=== PATIENT | female | born 2000 | race Caucasian/White ===

== ENCOUNTER 2021-10-16 18:08 | Emergency (ER) | payer BC ==
--- OUTSIDE RECORDS SUMMARY | 2021-10-16 18:16 | XMS REPORT | Continuity of Care Document ---
:2000 Author Organization [facility] t Address [address] [place] [address] Care Team Providers Name Role Phone Nikko Farnsworth MD Attending Clinician Mike Reynolds Attending Clinician Unavailable Ar Attending Clinician [phone] Selam Attending Clinician Unavailable Herberth Attending Clinician Unavailable Asia Fritz Attending Clinician Unavailable Ammy Attending Clinician Unavailable DR Bing LOCO Attending Clinician Unavailable Mike Reynolds Admitting Clinician Unavailable DR Bing LOCO Admitting Clinician Unavailable Ar Olivera [id number] Payers Payer Name Policy Type Policy Number Effective Date Expiration Date S ource Title X 11 [id number] 2021 2022 [facility] 00:00:00 00:00:00 Community Health Problems Condition Condition Condition Status Onset Resolution Last Treating Co mments Source Name Details Category Date Date Treatment Clinician Date Migraine Condition Active 2020-08-28 Avery Joyner headache 5-20 14:23:27 [facility] Commun i 00:00: ty 00 Health Overweight Condition Active 2020-08-28 Venkat Joyneracy 1-08 14:23:27 [facility] Communi 00:00: ty 00 Health Hepatitis Condition Active 2018-102020-08-28 Avery Joyner A immunity 1-15 14:23:27 Rodari Comm uni 00:00: ty 00 Health Vitamin D Condition Active 2018-102020-08-28 Ar [facility] deficiency 1-15 14:23:27 [facility] Comm uni 00:00: ty 00 Health BMI Condition Active 2018-102020-08-28 Ar Le gacy 24.0-24.9 1-13 14:23:27 Rodari Commu ni 00:00: ty 00 Health Unspecifie Condition Active 2018-102020-08-28 Ar, Trans masc [facility] d 1-13 14:23:27 Rodari uline Communi endocrine 00:00: (Female ty disorder 00 to Male) Health Encounter Condition Active 2018-102020-08-28 Avery Joyner for 1-13 14:23:27 [facility] Communi immunizati 00:00: ty on 00 Health Screening Condition Active 2018-102020-08-28 Avery Joyner for lipid 1-13 14:23:27 Rodari Commu ni disorder 00:00: ty 00 Health Abdominal Abdominal Disease Active Uni vers pain pain 2-25 ity of 00:00: [place] 00 Medical Branch Screening Condition Active 2018-102019-10-25 2020-08-28 Avery Joyner for 1-13 00:00:00 14:28:17 [facility] Commun i vitamin D 00:00: ty deficiency 00 Health History of Past Illness Condition Condition Condition Status Onset Resolution Last Treating Co mments Source Name Details Category Date Date Treatment Clinician Date Abdominal Condition Inactiv 2021-01-15 2021-01-15 Avery Joyner pain, e 7-15 00:00:00 12:20:46 [facility] Commun i epigastric 00:00: ty 00 Health Urticaria, Condition Inactiv 2019-10-25 2019-10-25 Avery Joyner allergic e 1-08 00:00:00 10:43:46 [facility] Comm uni 00:00: ty 00 Health Screening Condition Inactiv 2018-102019-10-25 2019-10-25 Avery Joyner for e 10-23 00:00:00 10:43:46 [facility] Commun i chlamydial 00:00: ty disease 00 Health Screening Condition Inactiv 2018-102019-10-25 2019-10-25 Avery Joyner for std e 10-23 00:00:00 10:43:46 [facility] Commu ni 00:00: ty 00 Health Special Condition Inactiv 2018-102019-10-25 2019-10-25 Avery Joyner screening e 10-23 00:00:00 10:43:46 Rod[facility] Com mansi examinatio 00:00: ty n for 00 Health other specified viral diseases Screening Condition Inactiv 2018-102019-10-25 2019-10-25 Avery Joyner for DM e 10-23 00:00:00 10:43:46 [facility] Commun i 00:00: ty 00 Health Screening Condition Inactiv 2018-102019-10-25 2019-10-25 Avery Joyner for e 10-23 00:00:00 10:43:46 [facility] Commun i endocrine 00:00: ty disease 00 Health Allergies, Adverse Reactions, Alerts Allergy Allergy Status Severity Reaction(s) Onset Inactive Treating Comm ents Source Name Type Date Date Clinician [place] DA Active [place] HIVES [facility] [place] [facility] [place] DA Active MO 2020-0 [facility]- [place] 00:[facility]: d [facility] TESTOSTE Drug Active High Wheal/hives Leg acy LEIGHA allergy Criticali redness and 08 C ommuni CYPIONAT (disorde ty itching. 00:00: ty E r) 00 Health NO KNOWN Drug Active Univers ALLERGIE Class ity of S [facility] Social History Social Habit Start Date Stop Date Quantity Comments Source Exposure to Not sure University of SARS-CoV-2 (event) [facility] albumin, serum 2021-07-23 2021-07-23 4.9 g/dL Legacy 17:13:00 17:13:00 Community Health Tobacco use and 2021-05-28 2021-05-28 Never used Universit y of exposure 00:00:00 00:00:00 [facility] drug use 2021-01-15 2021-01-15 Currently [facility] 11:52:30 11:52:30 [facility] alcohol use 2021-01-15 2021-01-15 Never [facility] 11:52:30 11:52:30 [facility] if the patient is 2021-01-15 2021-01-15 No Legacy using/has used a 11:52:30 11:52:30 Communit y vaping item, Health Current, Former, Never Used, Not asked social history E&M 2021-01-15 2021-01-15 Dating. Legacy 11:52:30 11:52:30 Spouse/Partner/Signif Com munity icant Other: Female. Heal th Granmother and Brother supporitive/affirming Not homeless. Born in [facility]. City: [facility] . State: [place]. Lives with parentesEmployed full-time. 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 Highest education level: some college. 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 Sexual orientation: Heterosexual. Gender identity: Transgender (Female to Male). Gender of partner(s): Female. Age of first sexual intercourse: 18. Sexually Active: Yes. Sexually active -declined PrEP. assessment of 2021-01-15 2021-01-15 Adequate [facility] health literacy 11:52:30 11:52:30 Community ([facility] 2014 Health Standards, 3C10) number of children 2021-01-15 2021-01-15 [facility] 11:52:30 11:52:30 [facility] sexual orientation 2021-01-15 2021-01-15 Heterosexual [facility] 11:52:30 11:52:30 [facility] social history 2021-01-15 2021-01-15 reviewed today Legacy reviewed E&M 11:52:30 11:52:30 [facility] is there any chance 2021-01-15 2021-01-15 No Legac y that you could be 11:52:30 11:52:30 Communi ty ? 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 [facility] 09:38:39 09:38:39 [facility] sex at 2019-08-23 2019-08-23 Female [facility] 09:38:39 09:38:39 [facility] smoke detector 2019-08-23 2019-08-23 Yes Legacy present in home 09:38:39 09:38:39 [facility] helmet use when 2019-08-23 2019-08-23 No Legacy riding 09:38:39 09:38:39 [facility] seatbelt usage 2019-08-23 2019-08-23 No Legacy 09:38:39 09:38:39 [facility] caffeine use, 2019-08-23 2019-08-23 1 /d Legacy average drinks per 09:38:39 09:38:39 Commun ity day Health I do not always 2019-08-23 2019-08-23 Yes Legacy have enough money 09:38:39 09:38:39 Communi ty to buy food with Health fiber intake 2019-08-23 2019-08-23 No [facility] 09:38:39 09:38:39 [facility] fat intake per day 2019-08-23 2019-08-23 No Legacy 09:38:39 09:38:39 [facility] iron intake per day 2019-08-23 2019-08-23 No Legac y 09:38:39 09:38:39 [facility] physical exercise, 2019-08-23 2019-08-23 1 /wk Legacy frequency, days per 09:38:39 09:38:39 Commu nity week Health exercise type 2019-08-23 2019-08-23 weights Legacy 09:38:39 09:38:39 [facility] tobacco use 2019-08-23 2019-08-23 Never Legacy (cigarettes, cigar, 09:38:39 09:38:39 Commu nity chew, pipe) Health social history - 2019-08-23 2019-08-23 Sexually active Leg acy sexual practice 09:38:39 09:38:39 -declined PrEP. Comm bradner Health home/family 2019-08-23 2019-08-23 Lives with parentes [facility] situation, 09:38:39 09:38:39 Community assessment Health family support 2019-08-23 2019-08-23 Granmother and Legacy 09:38:39 09:38:39 Brother Community supporitive/affirming [facility] patient considered 2019-08-23 2019-08-23 No Legacy to be homeless 09:38:39 09:38:39 [facility] Smoking Status Start Date Stop Date Source Never smoker [facility] Medications Ordered Filled Start Stop Current Ordering Indication Dosage Frequency Signature Comments Components Source Medication Medication Date Date Medication? Clinician (SIG) Name Name (TESTOSTERO 2020-10 Yes Rod[facility] Inject 0.5 0.5 x 6 Legacy NE 0-17 Joyner ml weeks=3ml Communi ENANTHATE) 00:00: subcutaneo t y 200 MG/ML 00 usly once Healt h SOLN a week VITAMIN D 2020-10 Yes Rodari Take 1 [facility] (ERGOCALCIF 0-14 Joyner capsule by Communi OCTAVIA) 00:00: mouth once ty (ERGOCALCIF 00 a week for He alth OCTAVIA) 1.25 12 weeks MG (85288 UT) CAPS FENTanyl PF 2020- No 50ug 50 mcg, Un dolly (SUBLIMAZE 05-29 Slow IV ity o f (PF)) 04:30: 03:29 Push, [place] injection 00 :00 ONCE, 1 Medical 50 mcg dose, Wed Branch 05/28/21 at 2330, STAT iopamidol 2020- No [id number] 100mL 100 mL, Univers (ISOVUE 05-29 Intravenou ity o f 370-500 mL) 04:15: 03:03 s, ONCE, 1 [place] injection 00 :00 dose, Wed Medic al 100 mL 05/28/21 at Branch 2315, Routine ondansetron 2020- No 4mg 4 mg, Slow Univers (ZOFRAN 05-29 IV Push, ity of (PF)) 04:00: 02:58 ONCE, 1 [place] injection 4 00 :00 dose, Wed Med ical mg 05/28/21 at Branch 2300, SOCRATES pantoprazol 2020- No 40mg 40 mg, Uni vers e 05-29 Slow IV ity of (PROTONIX) 02:15: 01:15 Push, [place] injection 00 :00 ONCE, 1 Medical 40 mg dose, Wed Branch 05/28/21 at 2115 ketorolac 2020- No 30mg 30 mg, Unive rs (TORADOL) 05-29 Slow IV ity of injection 02:15: 01:17 Push, [place] 30 mg 00 :00 ONCE, 1 Medical dose, Wed Branch 05/28/21 at 2115, Routine
manager membership approving Restricted medication : ZANE FARNSWORTH ondansetron 2020- No 4mg 4 mg, Slow Univers (ZOFRAN 05-29 IV Push, ity of (PF)) 02:15: 01:04 ONCE, 1 [place] injection 4 00 :00 dose, Wed Med ical mg 05/28/21 at Branch 2114, SOCRATES traMADoL Yes [id number] 50mg Take 1 Univers (ULTRAM) 50 8-18 tablet by ity of mg tablet 00:00: mouth [place] 00 every 6 Medical (six) Branch hours as needed for Pain (scale 7-10). Indication s: acute pain pantoprazol Yes [id number] 40mg Take 1 Univers e 8-18 tablet by ity of (PROTONIX) 00:00: mouth [place] 40 mg EC 00 daily. Medical tablet Branch proMETHazin Yes [id number] 25mg Take 1 Univers e 25 mg 8-18 tablet by ity of tablet 00:00: mouth [place] 00 every 6 Medical (six) Branch hours as needed for Nausea and Vomiting (N/V). Nitrofurant Yes [id number] 100mg Take 1 Univers oin&Nit. 8-18 capsule by ity o f Macrocryst 00:00: mouth 2 [place] (MACROBID) 00 (two) Medical 100 mg times Branch capsule daily. VITAMIN D2 2020- No Rodari 1 1xD 1 tablet [facility] (ERGOCALCIF 6-29 10-14 Joyner by mouth C ommuni OCTAVIA) 50 00:00: 00:00 once a day ty MCG (1999 00 :00 [facility]) TABS VITAMIN D 2020- No Rodari 1 Q7.38922Y 1 capsule [facility] (ERGOCALCIF 4-05 06-28 Joyner by mouth C ommuni OCTAVIA) 00:00: 00:00 once per ty (ERGOCALCIF 00 :00 week for Heal th OCTAVIA) 1.25 12 weeks MG (44070 UT) CAPS IMITREX Rodari 1 by mouth L egacy (SUMATRIPTA 5-20 05-30 Joyner at onset C ommuni N 00:00: 00:00 of ty SUCCINATE) 00 :00 migraine Healt h 25 MG TABS headache. May repeat in 2 hours, max 200 mg per day VITAMIN D 2020- No Rodari 1 tablet L egacy (ERGOCALCIF 2-08 04-05 Joyner By Mouth C ommuni OCTAVIA) 00:00: 00:00 daily. ty (ERGOCALCIF 00 :00 Start Health OCTAVIA) 50 taking MCG (2000 after UT) CAPS completing ALL 12 weeks of High Dose Vitamin D. 25G X 02/15 Yes Rodari Use Legacy INCH 2-04 Joyner subcutaneo Communi NEEDLES 00:00: usly ty 00 Health 22G X 1 2018-10 Yes Rodari Use Legacy INCH 2-04 Joyner Communi NEEDLES 00:00: ty 00 Health 1CC 2018-10 Yes Rodari Used for Legacy LUER-LOCK 2-04 Joyner drawing up Co mmuni SYRINGES 00:00: and ty 00 injecting Health testostero ne (TESTOSTERO 2018-10- No Rodari Inject 0.5 x 6 Legacy NE 2-04 10-17 Joyner 0.5ml(100m weeks=3ml C ommuni ENANTHATE) 00:00: 00:00 g) ty 200 MG/ML 00 :00 Subcutaneo Heal th SOLN usly every 7 days. VITAMIN D 2018-10- No Rodari 1{Capsu [id number] One [facility] (ERGOCALCIF 1-15 02-07 Joyner le} capsule by Communi OCTAVIA) 00:00: 00:00 mouth once ty (ERGOCALCIF 00 :00 per week Heal th OCTAVIA) 1.25 for 12 MG (62952 weeks UT) CAPS Immunizations Ordered Immunization Filled Immunization Date Status Commen ts Source Name Name Gardasil 9 IM 2019-11-15 Completed [facility] Comm amos [id number] 10:10:00 Health Arelyl 9 IM 2019-09-13 Completed [facility] Comm amos [id number] 16:51:00 Health Tdap 2018-05-02 Completed [facility] Communi ty 00:00:00 Health Vital Signs Vital Name Observation Time Observation Value Comments Source Systolic blood 2021-05-29 04:38:00 102 mm[Hg] Univer sity of pressure [facility] Diastolic blood 2021-05-29 04:38:00 86 mm[Hg] Unive rsity of [facility] Heart rate 2021-05-29 04:38:00 66 /min [facility] Respiratory rate 2021-05-29 04:10:00 20 /min [facility] Oxygen saturation in 2021-05-29 04:10:00 99 /min [facility] blood by [facility] Pulse oximetry Branch Body temperature 2021-05-29 00:38:00 37.28 [facility] height 2021-05-29 00:38:00 170.2 cm [facility] Body weight 2021-05-29 00:38:00 72.122 kg [facility] BMI 2021-05-29 00:38:00 24.90 kg/m2 [facility] height E&M 2021-01-15 11:52:30 65 [in_i] [facility] C ommunity Health blood pressure, 2020-08-28 14:05:12 82 mm[Hg] Leg[facility] diastolic Health blood pressure, 2020-08-28 14:05:12 123 mm[Hg] [facility] systolic Health oxygen saturation, 2020-08-28 14:05:12 98 /min [facility] oxim[facility] Health pulse rate 2020-08-28 14:05:12 77 /min [facility] C ommunity Health temperature E&M 2020-08-28 14:05:12 98.7 [degF] Leg[facility] y [facility] height in 2020-08-28 14:05:12 165.10 cm [facility] C ommunity centimeters E&M Health weight E&M 2020-08-28 14:05:12 159 [lb_av] [facility] C om[facility]ity Health weight in kilograms 2020-08-28 14:05:12 72.27 kg L [facility] E& Health temperature site 2020-08-28 14:05:12 oral [facility] height E&M 2020-06-05 08:19:08 65 [in_i] [facility] C ommunity Health temperature site 2020-01-17 09:46:13 oral [facility] Health oxygen saturation, 2019-12-06 09:54:04 99 /min [facility] Health blood pressure, 2019-12-06 09:54:04 80 mm[Hg] Legac [facility] diastolic Health blood pressure, 2019-12-06 09:54:04 125 mm[Hg] Legac [facility] systolic Health pulse rate 2019-12-06 09:54:04 73 /min [facility] temperature E&M 2019-12-06 09:54:04 98.5 [degF] Legac [facility] Health weight E&M 2019-12-06 09:54:04 153 [lb_av] [facility] C ommunity Health weight in kilograms 2019-12-06 09:54:04 69.55 kg L [facility] E& Health height E&M 2019-12-06 09:54:04 65 [in_i] [facility] C om[facility]ity Health weight percentile 2019-12-06 09:54:04 83 Leg [facility] height percentile 2019-12-06 09:54:04 61 Leg [facility] temperature site 2019-12-06 09:54:04 oral [facility] Health oxygen saturation, 2019-11-15 09:59:34 96 /min [facility] Health blood pressure, 2019-11-15 09:59:34 70 mm[Hg] Legac [facility] diastolic Health blood pressure, 2019-11-15 09:59:34 138 mm[Hg] Legac [facility] systolic Health pulse rate 2019-11-15 09:59:34 71 /min [facility] C om[facility]ity Health temperature E&M 2019-11-15 09:59:34 98.4 [degF] [facility] Health temperature site 2019-11-15 09:59:34 tympanic [facility] Community [facility] oxygen saturation, 2019-10-25 10:16:18 98 /min [facility] oximetry Health blood pressure, 2019-10-25 10:16:18 78 mm[Hg] Legac [facility] diastolic Health blood pressure, 2019-10-25 10:16:18 115 mm[Hg] [facility] systolic Health pulse rate 2019-10-25 10:16:18 63 /min [facility] C om[facility]ity Health temperature E&M 2019-10-25 10:16:18 98.3 [degF] [facility] weight E&M 2019-10-25 10:16:18 155 [lb_av] [facility] C [facility]ity Health weight in kilograms 2019-10-25 10:16:18 [facility] height E&M 2019-10-25 10:16:18 65 [in_i] [facility] C [facility]ity Health weight percentile 2019-10-25 10:16:18 85 Leg [facility] Health height percentile 2019-10-25 10:16:18 61 Leg [facility] temperature site 2019-10-25 10:16:18 oral [facility] Health oxygen saturation, 2019-10-18 10:49:06 98 /min [facility] blood pressure, 2019-10-18 10:49:06 85 mm[Hg] Legac [facility] diastolic Health blood pressure, 2019-10-18 10:49:06 135 mm[Hg] [facility] systolic Health pulse rate 2019-10-18 10:49:06 66 /min [facility] C ommunity Health temperature E&M 2019-10-18 10:49:06 98.2 [degF] [facility] Health weight E&M 2019-10-18 10:49:06 152 [lb_av] [facility] C om[facility]ity Health weight in kilograms 2019-10-18 10:49:06 69.09 [facility] height in 2019-10-18 10:49:06 165.10 cm Legacy C ommunity centimeters E&M Health weight percentile 2019-10-18 10:49:06 83 [facility] height percentile 2019-10-18 10:49:06 61 [facility] 2019-10-18 10:49:06 oral [facility] Health oxygen saturation, 2019-09-13 09:48:48 98 /min [facility] blood pressure, 2019-09-13 09:48:48 88 mm[Hg] Leg[facility] diastolic Health blood pressure, 2019-09-13 09:48:48 127 mm[Hg] [facility] systolic Health pulse rate 2019-09-13 09:48:48 84 /min [facility] C ommunity Health temperature E&M 2019-09-13 09:48:48 98.4 [degF] [facility] weight E&M 2019-09-13 09:48:48 149 [lb_av] [facility] C om[facility]ity Health weight in kilograms 2019-09-13 09:48:48 67.73 kg L [facility] E&M Health height E&M 2019-09-13 09:48:48 65 [in_i] [facility] C om[facility]ity Health weight percentile 2019-09-13 09:48:48 80 Leg [facility] Health height percentile 2019-09-13 09:48:48 61 Leg [facility] temperature site 2019-09-13 09:48:48 oral Lega [facility] Health oxygen saturation, 2019-08-23 09:38:39 98 /min [facility] blood pressure, 2019-08-23 09:38:39 78 mm[Hg] [facility] diastolic Health blood pressure, 2019-08-23 09:38:39 133 mm[Hg] [facility] systolic Health pulse rate 2019-08-23 09:38:39 82 /min [facility] C ommunity Health temperature E&M 2019-08-23 09:38:39 98.8 [degF] [facility] Health height in 2019-08-23 09:38:39 165.10 cm [facility] C ommunity centimeters E&M Health weight E&M 2019-08-23 09:38:39 146 [lb_av] [facility] C [facility]ity Health weight in kilograms 2019-08-23 09:38:39 66.36 kg L [facility] E& Health height percentile 2019-08-23 09:38:39 61 Leg [facility] Health weight percentile 2019-08-23 09:38:39 78 Leg [facility] temperature site 2019-08-23 09:38:39 oral [facility]ega [facility] Procedures Procedure Date / Time Performing Clinician Source Performed Venipuncture 2021-08-06 11:18:00 Kady Joyner Avery [facility] Venipuncture 2021-07-27 18:06:39 Ar Kady Avery [facility] Venipuncture 2021-07-23 16:58:49 Kady Joynerjammie [facility] CT ABDOMEN PELVIS W 2021-05-29 03:06:05 Zane Farnsworth [facility] CONTRAST [facility] URINALYSIS 2021-05-29 02:12:00 Zane Farnsworth [facility] TEST, SERUM 2021-05-29 01:23:00 Zane Farnsworth [facility] LIPASE 2021-05-29 01:02:00 Zane Farnsworth [facility] COMP. METABOLIC PANEL 2021-05-29 01:02:00 Zane Farnsworth [facility] ([id number]) [facility] CBC WITH DIFF 2021-05-29 01:02:00 Zane Farnsworth [facility] CONSENT/REFUSAL FOR 2021-05-29 00:13:46 Doctor Unassigned, No Un [facility] DIAGNOSIS AND TREATMENT Name Medical Branch Both Nutrition / 2021-01-15 12:15:36 [facility]ady [facility] (Obese) Both Nutrition / 2020-08-28 14:16:36 Kady Joyner [facility] (Obese) Vaccines Ordered - Print 2020-08-28 14:11:39 Kady Joyner [facility] Consent/Declination Health Forms Both Nutrition / 2020-01-17 09:56:13 Kady Joyner [employer] [facility] (Obese) Health 2019-12-06 14:46:42 Provider, [facility] 51fanli Education/Supportive Health Services Health Counseling Vaccines Ordered - Print 2019-12-06 11:03:29 Kady Joyner [facility] Consent/Declination Health Forms Both Nutrition / 2019-12-06 10:59:52 Kady [facility] (Obese) First Vx - Ix admin via 2019-11-15 10:10:41 LennyAmandeep Community ID IM or jet injects Health without counseling by physician Gardasil 9 Intramuscular 2019-11-15 10:10:41 Lenny Amandeep Venkat agudelo [facility] Suspension Health Vaccines Ordered - Print 2019-11-15 10:01:30 Lenny Amandeep Venkat agudelo [facility] Consent/Declination Health Forms Health 2019-10-25 13:51:58 Provider, Public [facility] Comm unity Education/Supportive Health Services Health Counseling Health 2019-10-25 12:21:46 Provider, Public [facility] Comm unity Education/Supportive Health Services Health Counseling Vaccines Ordered - Print 2019-10-25 10:27:42 Kady Joyner [facility] Consent/Declination Health Forms Health 2019-10-18 12:36:56 Provider, Public [facility] Comm unity Education/Supportive Health Services Health Counseling First Vx - Ix admin via 2019-09-13 16:51:20 Kady Joyner ela Community ID IM or jet injects Health without counseling by physician Gardasil 9 Intramuscular 2019-09-13 16:51:20 Kady Joyner Venkat maobella [facility] Health 2019-09-13 16:06:36 Provider, Public [facility] Comm unity Education/Supportive Health Services Health Counseling Vaccines Ordered - Print 2019-09-13 10:52:17 ArFideljack Venkat maobella [facility] Consent/Declination Health [facility] 2019-08-23 12:12:31 Provider, Public [facility] Comm unity Education/Supportive Health Services Health Counseling Gender Care Navigation 2019-08-23 09:43:19 Kady Joyner [facility] Health Venipuncture 2019-08-23 09:42:25 Kady Joyneru nity Health Encounters Start End Encounter Admission Attending Care Care Encounter Source Date/Time Date/Time Type Type Clinicians Facility Department ID 2021-05-28 2021-05-28 Emergency [facility] [id number] Univers 19:39:00 23:39:00 Zane Cooper [id number] bella [facility] [id number] [facility] [id number] [facility] luis manuel 084 Branch 2021-05-28 2021-05-28 Emergency X [facility] ERT [id number] Univers 19:11:00 19:11:00 [facility] 2021-05-01 2021-05-02 Inpatient EM Mike HCAKW OBSE [id number] [facility] 03:02:00 13:24:00 Gail [id number] [facility] 2021-01-15 2021-01-15 Office Kady Joyner [place] [id number] Legacy 00:00:00 00:00:00 Visit Lila Doss [id number] Communi ty Health 2020-08-28 2020-08-28 Office Kady Joyner [place] [id number] Legacy 00:00:00 00:00:00 Visit Lila Doss [id number] Communi ty Health 2020-06-05 2020-06-05 Office Kady Joyner [place] [id number] Legacy 00:00:00 00:00:00 Visit Lila Doss [id number] Communi ty Health 2020-04-24 2020-04-24 Office Kady Joyner [place] [address] [id number] [facility] 00:00:00 00:00:00 Visit Lila Doss [id number] [facility] 2020-02-28 2020-02-28 Office Kady Joyner [place] [address] [id number] [facility] 00:00:00 00:00:00 Visit Virginie Kevin [address] [facility] 2020-01-17 2020-01-17 Office Kady Joyner [place] [address] [id number] [facility] 00:00:00 00:00:00 Visit Lila Doss 78852 [facility] 2019-12-06 2019-12-06 Office Kady Joyner [place] [address] [id number] [facility] 00:00:00 00:00:00 Visit Lila Dsos 18793 [facility] 2019-10-25 2019-10-25 [facility] [place] [address] [id number] [facility] 00:00:00 00:00:00 Visit Lila Doss 87974 [facility] 2019-10-18 2019-10-18 Office Kady Joyner [place] [address] [id number] [facility] 00:00:00 00:00:00 Visit Aracely Fritz [place] [address] [facility] Lila Doss [facility] 2019-09-13 2019-09-13 Office Kady Joyner [facility] [phone] Legacy 00:00:00 00:00:00 Visit Lila Doss 57[address] [facility] 2019-08-23 2019-08-23 Office JoynerFdieljack [facility] [phone] [facility] 00:00:00 00:00:00 Visit Collin Gimenez [address]803 [facility] Lila Doss [facility] 2018-09-11 2018-09-11 Emergency E [facility] 1000 [id number] [facility] 00:21:00 03:08:00 Medica l Center Results Test Description Test Time Test Comments Results Result Comments Source vitamin D 25-hydroxy, serum 2021-07-23 17:13:00 Test Item Value Reference Range Interpretation Comme nts vitamin D 25-hydroxy, serum (test code = 22218-7) 21.7 ng/mL 30.0 -100.0 L [facility] [id number] 17:13:00 Test Item Value Reference Range Interpretation Comments LDL cholesterol, serum (test code = 92 mg/dL 0-99 2088-1) [facility] low density jkxlkesyhuvw6928-78-20 17:13:00 Test Item Value Reference Range Interpretation Comments very low density lipoproteins (test 14 mg/dL 5-40 code = 2091-7) [facility], [id number] 17:13:00 Test Item Value Reference Range Interpretation Comments HDL cholesterol, serum (test code = 56 mg/dL >39 2084-9) [facility], serum, zplbtnz2358-58-28 17:13:00 Test Item Value Reference Range Interpretation Comments triglyceride, serum, fasting (test 74 mg/dL 0-149 code = 2571-8) [facility]olesterol, [id number] 17:13:00 Test Item Value Reference Range Interpretation Comments cholesterol, serum (test code = 162 mg/dL 397-017 5050-3) [facility] aminotransferase (SGPT), [id number] 17:13:00 Test Item Value Reference Range Interpretation Comments alanine aminotransferase (SGPT), serum 9 1/L 0-32 (test code = 1742-6) [facility]partate aminotransferase (SGOT), drhav9003-60-47 17:13:00 Test Item Value Reference Range Interpretation Comments aspartate aminotransferase (SGOT), 17 1/L 0-40 serum (test code = 1920-8) [facility] phosphatase, [id number] 17:13:00 Test Item Value Reference Range Interpretation Comments alkaline phosphatase, serum (test code 84 1/L 44-121 = 1783-0) [facility]irubin, serum, [id number] 17:13:00 Test Item Value Reference Range Interpretation Comments bilirubin, serum, total (test code 0.4 mg/dL 0.0-1.2 = 1975-2) [facility] Healthalbumin/globulin ratio, akwwb0624-76-82 17:13:00 Test Item Value Reference Range Interpretation Comments albumin/globulin ratio, 2.6 (unknown unit) 1.2-2.2 H serum (test code = 1759-0) [facility] Healthglobulin, [id number] 17:13:00 Test Item Value Reference Range Interpretation Comments globulin, serum (test code 1.9 (unknown unit) 1.5-4.5 = 2336-6) [facility] Healthalbumin, wvbhm0840-08-49 17:13:00 Test Item Value Reference Range Interpretation Comments albumin, serum (test code = 1751-7) 4.9 g/dL 3.9-5.0 [facility] Healthprotein, total, [id number] 17:13:00 Test Item Value Reference Range Interpretation Comments protein, total, serum (test code = 6.8 g/dL 6.0-8.5 2885-2) [facility]ium, [id number] 17:13:00 Test Item Value Reference Range Interpretation Comments calcium, serum (test code = 1999-8) 9.6 mg/dL 8.7-10.2 [facility] dioxide, venous glfml5781-65-00 17:13:00 Test Item Value Reference Range Interpretation Comments carbon dioxide, venous blood (test 24 mmol/L 20-29 code = 7-1) [facility] Healthchloride, nywrf2487-96-36 17:13:00 Test Item Value Reference Range Interpretation Comments chloride, serum (test code = 102 mmol/L 96-106 2075-0) [facility] Healthpotassium, rmekc6742-89-08 17:13:00 Test Item Value Reference Range Interpretation Comments potassium, serum (test code = 4.2 mmol/L 3.5-5.2 2823-3) [facility]odium, rzhlw9871-04-59 17:13:00 Test Item Value Reference Range Interpretation Comments sodium, serum (test code = 2951-2) 139 mmol/L 134-144 [facility] nitrogen/creatinine ratio, lrjsg5647-08-98 17:13:00 Test Item Value Reference Range Interpretation Comments urea nitrogen/creatinine 11 (unknown unit) 9-23 ratio, serum (test code = 3097-3) [facility] HealtheGFR if Abmqhijx2429-59-76 17:13:00 Test Item Value Reference Range Interpretation Comments eGFR if 130 mL/min/{1.73 m2} >59 (test code = 53332-4) [facility]haw[facility]ated Glomerular Filtration Rate (calc)2021-07-23 17:13:00 Test Item Value Reference Range Interpretation Comments Estimated Glomerular 112 mL/min/{1.73 m2} >59 Filtration Rate (calc) (test code = 47251-9) [facility]inine, xjehy9762-94-52 17:13:00 Test Item Value Reference Range Interpretation Comments creatinine, serum (test code = 0.76 mg/dL 0.57-1.00 2160-0) [facility] nitrogen, czgej4726-38-62 17:13:00 Test Item Value Reference Range Interpretation Comments urea nitrogen, blood (test code = 8 mg/dL 6-20 3094-0) [facility] glucose, cdhjor0879-53-86 17:13:00 Test Item Value Reference Range Interpretation Comments blood glucose, random (test code = 89 mg/dL 65-99 2339-0) [facility]ature granulocytes, percentage of total cells, blood 2021-07-23 17:13:00 Test Item Value Reference Range Interpretation Comments immature granulocytes, percentage of 0 % total cells, blood (test code = 27775-5) [facility]haw[facility]ophil count, ayrruwam0172-83-34 17:13:00 Test Item Value Reference Range Interpretation Comments basophil count, absolute (test 0.0 x10E3/uL 0.0-0.2 code = 21868-1) [facility] HealthEosinophil Absolute Owwlu9809-12-98 17:13:00 Test Item Value Reference Range Interpretation Comments Eosinophil Absolute Count (test 0.2 X10E3/UL 0.0-0.4 code = 39482-6) [facility] Healthmonocyte count, blood, xiaxoucpl3726-71-96 17:13:00 Test Item Value Reference Range Interpretation Comments monocyte count, blood, automated 0.8 X10E3/UL 0.1-0.9 (test code = 742-7) [facility] count, blood, mbvhkntzm3668-22-36 17:13:00 Test Item Value Reference Range Interpretation Comments lymphocyte count, blood, 3.8 X10E3/UL 0.7-3.1 H automated (test code = 731-0) [facility]Absolute Bctgceqtesy2852-61-47 17:13:00 Test Item Value Reference Range Interpretation Comments Absolute Neutrophils (test code 4.0 X10E3/UL 1.4-7.0 = 79603-1) [facility]ophils as percent of blood ohsfvvdzzq3655-42-84 17:13:00 Test Item Value Reference Range Interpretation Comments basophils as percent of blood 1 % leukocytes (test code = 707-0) [facility] Healtheosinophils as percent of blood ndidykvsqs2810-65-77 17:13:00 Test Item Value Reference Range Interpretation Comments eosinophils as percent of blood 2 % leukocytes (test code = 713-8) [facility] Healthmonocytes as percent of blood dstfunyuge2287-60-76 17:13:00 Test Item Value Reference Range Interpretation Comments monocytes as percent of blood 9 % leukocytes (test code = 5905-5) [facility] as percent of blood syhpbnwrrp7673-15-07 17:13:00 Test Item Value Reference Range Interpretation Comments lymphocytes as percent of blood 43 % leukocytes (test code = 736-9) [facility] Healthneutrophils as percent of blood nscxwvbkqc3884-99-96 17:13:00 Test Item Value Reference Range Interpretation Comments neutrophils as percent of blood 45 % leukocytes (test code = 770-8) [facility]hawplatelet ywqeu0103-42-95 17:13:00 Test Item Value Reference Range Interpretation Comments platelet count (test code = 220 X10E3/UL 150-450 777-3) [facility]red blood cell distribution ioiym6847-51-24 17:13:00 Test Item Value Reference Range Interpretation Comments red blood cell distribution width 13.7 % 11.7-15.4 (test code = 788-0) [facility] corpuscular hemoglobin concentration, [id number] 17:13:00 Test Item Value Reference Range Interpretation Comments mean corpuscular hemoglobin 32.8 G/DL 31.5-35.7 concentration, RBC (test code = 786-4) [facility] corpuscular hemoglobin, [id number] 17:13:00 Test Item Value Reference Range Interpretation Comments mean corpuscular hemoglobin, RBC 29.3 pg 26.6-33.0 (test code = 785-6) [facility] corpuscular volume, [id number] 17:13:00 Test Item Value Reference Range Interpretation Comments mean corpuscular volume, RBC (test code 89 fL 79-97 = 787-2) [facility]ocrit, [id number] 17:13:00 Test Item Value Reference Range Interpretation Comments hematocrit, blood (test code = 4544-3) 44.2 % 34.0-46.6 [facility]hawhemoglobin, [id number] 17:13:00 Test Item Value Reference Range Interpretation Comments hemoglobin, blood (test code = 14.5 g/dL 11.1-15.9 718-7) [facility]throcyte (RBC) tlkyd1161-55-07 17:13:00 Test Item Value Reference Range Interpretation Comments erythrocyte (RBC) count (test 4.95 X10E6/UL 3.77-5.28 code = 789-8) [facility]hawleukocyte count, zunpm2473-88-01 17:13:00 Test Item Value Reference Range Interpretation Comments leukocyte count, blood (test 8.8 X10E3/UL 3.4-10.8 code = 6690-2) [facility]hawPREGNANCY TEST, [id number] 02:45:33 Test Item Value Reference Range Interpretation Comments PREG SERUM (test code Negative = 6462136510) MENDEL (test code = MENDEL) Less than 10 IU/L. ?If low titer or ectopic is suspected, resubmit specimen in 48-72 hours. [facility]ysis[facility] 02:45:03 Test Item Value Reference Range Interpretation Comments APPEARANCE (test code = Hazy Clear A 3863934962) COLOR (test code = Yellow Yellow 1549830433) PH (test code = 4.8-8.0 A 4533328296) SP GRAVITY (test code = 1.003-1.030 0298754874) GLU U QUAL (test code = Normal Normal 9336093094) BLOOD (test code = Negative Negative 9814151105) KETONES (test code = 20 mg/dL Negative A 4293917402) PROTEIN (test code = 100 mg/dL Negative A 2887-8) UROBILIN (test code = Normal Normal 0557232693) BILIRUBIN (test code = Negative Negative 2786333349) NITRITE (test code = Negative Negative 9563111396) LEUK KELI (test code = 250/uL Negative A 1518851962) RBC/HPF (test code = See_Comment H [Autom ated message] 7563138474) The system [employer] generated this result transmit janet reference range : 0 - 3 HPF. The refe rence range was not u sed to interpret th is result as normal/abnormal . WBC/HPF (test code = See_Comment H [Autom ated message] 6058132058) The system [employer] generated this result transmit janet reference range : 0 - 5 HPF. The refe rence range was not u sed to interpret th is result as normal/abnormal . BACTERIA (test code = Few Negative A 8460230572) MUCOUS (test code = Marked Negative LPF A 9735573509) SQ EPITH (test code = HPF 9081919083) Lab Interpretation (test Abnormal code = 19192-0) [facility] Metabolic Yyetk0378-51-92 01:46:47 Test Item Value Reference Range Interpretation Comments NA (test code = 139 mmol/L 135-145 7201516687) K (test code = 3.5 mmol/L 3.5-5.0 0609786265) CL (test code = 105 mmol/L 98-108 2885107743) CO2 TOTAL (test code = 20 mmol/L 23-31 L 7707766678) AGAP (test code = 2-16 4435892277) BUN (test code = 13 mg/dL 7-23 3812444845) GLUCOSE (test code = 136 mg/dL 70-110 H 9610469892) CREATININE (test code = 0.73 mg/dL 0.50-1.04 2377757801) TOTAL BILI (test code = 0.7 mg/dL 0.1-1.4 0901098800) CALCIUM (test code = 10.5 mg/dL 8.6-10.6 1543159079) T PROTEIN (test code = 8.5 g/dL 6.3-8.2 H 0783135764) ALBUMIN (test code = 5.4 g/dL 3.5-5.0 H 9473177967) ALK PHOS (test code = 107 U/L 34-122 4278461118) ALTv (test code = 18 U/L 5-35 1742-6) AST(SGOT) (test code = 28 U/L 13-40 3799306595) eGFR (test code = mL/min/1.73m2 9685952624) MENDEL (test code = MENDEL) Association of Glomerular Filtration Rate (GFR) and Staging of Kidney Disease* + --+ --+ ------+| GFR (mL/min/1.73 m2) ?| With Kidney Damage ?| ?Without Kidney Damage+ --------+ --------+ +| ?>90 ?| ?Stage one ?| ? Normal ?+ ---+ ---+ -------+| ?60-89 ?| ?Stage two ?| ? Decreased GFR ? + --+ --+ ------+| ?30-59 ?| ?Stage three ?| ? Stage three ? + --+ --+ ------+| ?15-29 ?| ?Stage four ? | ? Stage four ?+ ---+ ---+ -------+| ?<15 (or dialysis) ? ?| ?Stage five ? | ? Stage five ?+ ---+ ---+ -------+ *Each stage assumes the associated GFR level has been in effect for at least three months. ?Stages 1 to 5, with or without kidney disease, indicate chronic kidney disease. Notes: Determination of stages one and two (with eGFR >59mL/min/1.73 m2) requires estimation of kidney damage for at least three months as defined by structural or functional abnormalities of the kidney, manifested by either:Pathological abnormalities or Markers of kidney damage (including abnormalities in the composition of the blood or urine or abnormalities in imaging tests). Lab Interpretation Abnormal (test code = 75033-7) [facility] HospitalLipase, Fxhae1104-09-29 01:46:06 Test Item Value Reference Range Interpretation Comments LIPASE (test code = 5336745309) 107 U/L 0-220 Lab Interpretation (test code = Normal 50050-2) [facility] HospitalCBC with Lledmhlyogve9709-91-01 01:23:24 Test Item Value Reference Range Interpretation Comments WBC (test code = See_Comment H [Automated 9090-2) message] The system which generated this result transmit janet reference range : 4.30 - 11.10 10*3/?L. The reference range was not used to interpret this result as normal/abnormal . RBC (test code = See_Comment [Automated 499-8) message] The system which generated this result transmit janet reference range : 3.93 - 5.25 10*6/?L. The reference range was not used to interpret this result as normal/abnormal . HGB (test code = 14.6 g/dL 11.6-15.0 718-7) HCT (test code = 43.4 % 35.7-45.2 4544-3) MCV (test code = 83.5 fL 80.6-95.5 787-2) MCH (test code = 28.1 pg 25.9-32.8 785-6) MCHC (test code = 33.6 g/dL 31.6-35.1 786-4) RDW-SD (test code = 42.2 fL 39.0-49.9 39420-2) RDW-CV (test code = 13.8 % 12.0-15.5 788-0) PLT (test code = See_Comment [Automated 777-3) message] The system which generated this result transmit janet reference range : 166 - 358 10*3/ ?L. The reference range was not u sed to interpret th is result as normal/abnormal . MPV (test code = 11.7 fL 9.5-12.9 87752-9) NRBC/100 WBC (test See_Comment [Automat ed code = 2132228402) message] The system which generated this result transmit janet reference range : 0.0 - 10.0 /100 WBCs. The reference range was not used to interpret this result as normal/abnormal . NRBC x10^3 (test code <0.01 See_Comment [Auto mated = 2154055911) message] The system which generated this result transmit janet reference range : 10*3/?L. The reference range was not used to interpret this result as normal/abnormal . GRAN MAT (NEUT) % 83.8 % (test code = 770-8) IMM GRAN % (test code 0.50 % = 2735555691) LYMPH % (test code = 10.4 % 736-9) MONO % (test code = 4.8 % 5905-5) EOS % (test code = 0.1 % 713-8) BASO % (test code = 0.4 % 706-2) GRAN MAT x10^3(ANC) 13.07 10*3/uL 1.88-7.09 H (test code = 5099337700) IMM GRAN x10^3 (test 0.08 10*3/uL 0.00-0.06 H code = 5631571227) LYMPH x10^3 (test code 1.63 10*3/uL 1.32-3.29 = 731-0) MONO x10^3 (test code 0.75 10*3/uL 0.33-0.92 = 742-7) EOS x10^3 (test code = <0.03 0.03-0.39 L 711-2) BASO x10^3 (test code 0.06 10*3/uL 0.01-0.07 = 704-7) Lab Interpretation Abnormal (test code = 56861-6) [facility]UA RFLX MICR CULT IF [id number] 08:33:00 Test Item Value Reference Range Interpretation Comments UA COLOR (test code Yellow Yellow = COLU) UA APPEARANCE (test Slightly-Cloudy Clear code = APPU) UA GLUCOSE DIPSTICK Negative Negative (test code = DGLUU) UA BILIRUBIN Negative Negative DIPSTICK (test code = BILU) UA KETONE DIPSTICK 40 (2+) mg/dL Negative A (test code = KETU) UA SPECIFIC GRAVITY 1.030 <1.030 (test code = SGU) UA BLOOD DIPSTICK Negative Negative (test code = BILL) UA PH DIPSTICK (test 6.0 5.0-8.0 code = CAROL) UA PROTEIN DIPSTICK NEGATIVE mg/dL Negative (test code = PROU) UA UROBILINOGEN Negative mg/dL Negative DIPSTICK (test code = URO) UA NITRITE DIPSTICK Negative Negative (test code = WAGNER) UA LEUKOCYTE NEGATIVE Negative ESTERASE DIPSTICK (test code = LEUU) UA WBC (test code = 4-5 /HPF See_Comment A <10 WBC/ HPF = WBCUR) PYURIA ABSENT URINE CULTURE NOT INDICATED [Automated message] The system which generated this result transmit janet reference range : <4-5. The reference range was not used to interpret this result as normal/abnormal . UA RBC (test code = 0-3 /HPF See_Comment [Automa janet RBCU) message] The system which generated this result transmit janet reference range : <4-5. The reference range was not used to interpret this result as normal/abnormal . UA BACTERIA (test None /HPF None-Rare code = BACU) UA SQUAMOUS CELLS 0-5 (RARE) /HPF See_Comment [Autom ated (test code = SQU) message] T he system which generated this result transmit janet reference range : 0-5 (RARE). The reference range was not used to interpret this result as normal/abnormal . UA MUCUS (test code 1+ /LPF See_Comment A [Automa janet = MUCU) message] The system which generated this result transmit janet reference range : <Rare. The reference range was not used to interpret this result as normal/abnormal . Indication for culture: RiskForSepsis-no oth srcSOURCE OF URINE: VOIDED- XR CHEST 1 [id number] 08:13:00 [facility] 2000 Sex: F FAX: Kobe Frank MD [place]: St: ADM FAX: Roxanna Parisi DO R2 Name: DENA SOLORIO [facility] : 2000 Age/S: 21/F [address] Unit #: [id number] Loc: C.[address] [place] [address] Phys: Peter Parisi DO R2Acct: [id number] Dis Date: Status: ADM IN PHONE #: [phone] Exam Date: 05/01/2021524 FAX #: [phone] Reason: sob EXAMS: CPT CODE: [id number] XR CHEST 1 V 07837 EXAM: - XR CHEST 1 V LOCATION: C3 HISTORY: sob COMPARISON: None available time of interpretation. FINDINGS: Single view of the chest. No indwelling lines or tubes. No pneumothorax. The lungs are clear without significant effusions. The mediastinal contours are unremarkable/unchanged. No acute osseous findings are present. IMPRESSION: No acute cardiopulmonary abnormality. No pneumoperitoneum. at 0813 Reported and signed by: Clive Luong MD CC: Luis Bullock MD; Peter Parisi DO Technologist: [place] (R) Trnscrd Date/Time/By: 05/01/2021 (0813) : By: [email or web address] PAGE 1 Signed Report FAX: Kobe Frank MD [place]: [facility]: ADM FAX: Peter Parisi DO R2 Name: DENA SOLORIO [facility] : 2000 Age/S: 21/F [address] Unit #: [id number] Loc: C.[address] [place] [address] Phys: Peter Parisi DOR2 Acct: [id number] Dis Date: Status:ADM IN PHONE #: [phone] Exam Date: 05/01/2021524 FAX #: [phone] Reason: sob EXAMS: CPT CODE: [id number] XR CHEST 1 V 26186 <Continued> Orig Print D/T: S: 05/01/2021 (0816) PAGE 2 Signed Report- XR ABDOMEN 1 [id number] 08:11:00 [facility] : 2000 Sex: F FAX: Kobe Frank MD [place]: [facility]: ADM FAX: Hoang Teixeira FAX: Yamini Holley MD R2 Name: DENA SOLORIO [facility] : 2000 Age/S: 21/F [address] Unit #: [id number] Loc: C.[address] [place] [address] Phys: Yamini Holley MD R2 Acct: [id number] Dis Date: Status:ADM IN PHONE #: [phone] Exam Date: 05/01/2021539 FAX #: [phone] Reason: suspect perforated PUD, check air under diaphra EXAMS: CPT CODE: [id number] XR ABDOMEN 1 V 99072 EXAM: Abdomen 1 view LOCATION: C3 HISTORY: suspect perforated PUD, check air under diaphragm COMPARISON: None available time of interpretation. FINDINGS: Single frontal view of the abdomen. The bowel gas pattern is nonobstructive. No suspicious calcifications identified. No acute osseous findings. IMPRESSION: No morgan pneumoperitoneum. Please note that this examination was done in supine position and small amounts of free air within the abdomen can only be appreciated in upright position. at 0811 Reported and signed by: Clive Luong MD CC: Luis Bullock MD; Hoang Reynolds MD; Yamini Holley MD Technologist: [place] (R) Trnscrd Date/Time/By: 05/01/2021 (0811) : By: [email or web address] PAGE 1 Signed Report FAX: Kobe Frank MD [place]: St: ADM FAX: Hoang Valdes FAX: Yamini Holley MD R2 Name: DENA SOLORIO : 2000 Age/S: 21/F [address] Unit #: [id number] Loc: C.[address] [place] [address] Phys: Yamini Holley MD R2 Acct: [id number] Dis Date: Status: ADM IN PHONE #: [phone] Exam Date: 05/01/2021 05 FAX #: [phone] Reason: suspect perforated PUD, check air under diaphra EXAMS: CPT CODE: [id number] XR ABDOMEN 1 V 44439 <C ontinued> Orig Print D/T: S: 05/01/2021 (0814) PAGE 2 Signed ReportCOMPREHENSIVE METABOLIC [id number] 05:21:00 Test Item Value Reference Range Interpretation Comments SODIUM (test code = 137 mmol/L 137-145 N NA) POTASSIUM (test code 3.6 mmol/L 3.4-5.0 N = K) CHLORIDE (test code 107 mmol/L 98-107 N = CL) CARBON DIOXIDE (test 22 mmol/L 22-30 N code = CO2) GLUCOSE (test code = 95 mg/dL 74-106 N GLU) BLOOD UREA NITROGEN 7 mg/dL 7-17 N (test code = BUN) GLOMERULAR 112 >60 The estimated FILTRATION RATE glomerular f iltration (test code = GFR) rate is co mputed usingpatient ra ce, age (>18), sex, and serum creatinine. If anyof the needed data elements are mi ssing the Laboratory cannot compute an mirian mation of the glomerul ar filtration rate . CREATININE (test 0.7 mg/dL 0.5-1.0 N code = CREAT) TOTAL PROTEIN (test 6.6 g/dL 6.3-8.2 N code = PROT) " A positive bias m ay occur for patients ta mary ellen Eltrombopag(a b one marrow stimulan t used to treat thrombocytopeni a andaplastic anemia)." ALBUMIN (test code = 4.0 g/dL 3.5-5.0 N ALB) CALCIUM (test code = 8.3 mg/dL 8.4-10.2 L CA) BILIRUBIN TOTAL 0.3 mg/dL 0.2-1.3 N "A positive bias may (test code = BILT) occur for patients taking Eltrombo pag(a bone marrow sti mulant used to treat thrombocytopeni a andaplastic ane bhavesh)." BILIRUBIN CONJUGATED 0 mg/dL 0-0.3 N "A posi tive bias may (test code = BILCON) occur f or patients taking Eltrombo pag(a bone marrow sti mulant used to treat thrombocytopeni a andaplastic ane bhavesh)." C ONJUGATE D BILIRUBIN IS THE REPLACEMENT ASS AY FOR DIRECTBILIRUBIN . BILIRUBIN 0.2 mg/dL 0-1.1 N UNCONJUGATED (test code = BILUNC) SGOT/AST (test code 24 U/L 15-46 N = AST) SGPT/ALT (test code 13 U/L 0-34 N = ALT) ALKALINE PHOSPHATASE 73 U/L 38-126 N (test code = ALKP) [id number] 05:21:00 Test Item Value Reference Range Interpretation Comments LIPASE (test code = LIP) 298 U/L 23-300 N [id number] 05:21:00 Test Item Value Reference Range Interpretation Comments MAGNESIUM (test code = MAG) 1.6 mg/dL 1.6-2.3 N LACTIC [id number] 05:10:00 Test Item Value Reference Range Interpretation Comments LACTIC ACID (test code = LACT) 0.7 mmol/L 0.7-2.0 N CBC W/AUTO [id number] 04:56:00 Test Item Value Reference Range Interpretation Comments WHITE BLOOD CELL (test code = 14.5 x10 3/uL 5.0-12.0 H WBC) RED BLOOD CELL (test code = 4.70 x10 6/uL 4.20-5.40 N RBC) HEMOGLOBIN (test code = HGB) 13.2 g/dL 12.0-16.0 N HEMATOCRIT (test code = HCT) 40.1 % 36.0-46.0 N MEAN CELL VOLUME (test code = 85 fL 81-99 N MCV) MEAN CELL HGB (test code = 28.1 pg 27-31 N MCH) MEAN CELL HGB CONCENTRATION 32.9 g/dL 33-37 L (test code = MCHC) RED CELL DISTRIBUTION WIDTH 14.6 % 11.5-15.5 N (test code = RDW) PLATELET COUNT (test code = 208 x10 3/uL 130-400 N PLT) MEAN PLATELET VOLUME (test 12.2 fL 9.4-16.4 N code = MPV) NEUTROPHIL % (test code = NT%) 72.9 % 43-65 H IMMATURE GRANULOCYTE % (test 0.3 % 0.0-2.0 N code = IG%) LYMPHOCYTE % (test code = LY%) 19.2 % 20.5-45.5 L MONOCYTE % (test code = MO%) 7.4 % 5.5-11.7 N EOSINOPHIL % (test code = EO%) 0.1 % 0.9-2.9 L BASOPHIL % (test code = BA%) 0.1 % 0.2-1.0 L NUCLEATED RBC % (test code = 0.0 % 0-1.0 N NRBC%) NEUTROPHIL # (test code = NT#) 10.60 x10 3/uL 2.2-4.8 H IMMATURE GRANULOCYTE # (test 0.04 x10 3/uL 0-0.03 H code = IG#) LYMPHOCYTE # (test code = LY#) 2.78 x10 3/uL 1.3-2.9 N MONOCYTE # (test code = MO#) 1.07 x10 3/uL 0.3-0.8 H EOSINOPHIL # (test code = EO#) 0.01 x10 3/uL 0.0-0.2 N BASOPHIL # (test code = BA#) 0.01 x10 3/uL 0.0-0.1 N testosterone, serum, [id number] 15:13:00 Test Item Value Reference Range Interpretation Comments testosterone, serum, free (test 12.7 pg/mL 0.0-4.2 H code = 2991-8) [facility] [id number] 15:13:00 Test Item Value Reference Range Interpretation Comments testosterone, total (test code = 673 ng/dL 13-71 H 2986-8) [facility] cholesterol, [id number] 15:13:00 Test Item Value Reference Range Interpretation Comments LDL cholesterol, serum (test code = 88 mg/dL 0-99 2088-1) [facility] density uclazafqgzfo4183-15-69 15:13:00 Test Item Value Reference Range Interpretation Comments very low density lipoproteins (test 11 mg/dL 5-40 code = 2091-7) [facility], [id number] 15:13:00 Test Item Value Reference Range Interpretation Comments HDL cholesterol, serum (test code = 53 mg/dL >39 2084-9) [facility], serum, [id number] 15:13:00 Test Item Value Reference Range Interpretation Comments triglyceride, serum, fasting (test 52 mg/dL 0-149 code = 2571-8) [facility], [id number] 15:13:00 Test Item Value Reference Range Interpretation Comments cholesterol, serum (test code = 152 mg/dL 078-191 9823-3) [facility] amin[facility] (SGPT), [id number] 15:13:00 Test Item Value Reference Range Interpretation Comments alanine aminotransferase (SGPT), serum 9 1/L 0-32 (test code = 1742-6) [facility]ate aminotransferase (SGOT), xlnih5982-49-56 15:13:00 Test Item Value Reference Range Interpretation Comments aspartate aminotransferase (SGOT), 16 1/L 0-40 serum (test code = 1920-8) [facility] phosphatase, [id number] 15:13:00 Test Item Value Reference Range Interpretation Comments alkaline phosphatase, serum (test 104 1/L 45-106 code = 1783-0) [facility], serum, [id number] 15:13:00 Test Item Value Reference Range Interpretation Comments bilirubin, serum, total (test code 0.5 mg/dL 0.0-1.2 = 1974-2) [facility] Healthalbum[facility]/globulin ratio, [id number] 15:13:00 Test Item Value Reference Range Interpretation Comments albumin/globulin ratio, 2.1 (unknown unit) 1.2-2.2 serum (test code = 1759-0) [facility] Healthglobulin, [id number] 15:13:00 Test Item Value Reference Range Interpretation Comments globulin, serum (test code 2.4 (unknown unit) 1.5-4.5 = 2336-6) [facility] Healthalbumin, [id number] 15:13:00 Test Item Value Reference Range Interpretation Comments albumin, serum (test code = 1751-7) 5.0 g/dL 3.9-5.0 [facility], total, [id number] 15:13:00 Test Item Value Reference Range Interpretation Comments protein, total, serum (test code = 7.4 g/dL 6.0-8.5 2885-2) [facility], [id number] 15:13:00 Test Item Value Reference Range Interpretation Comments calcium, serum (test code = 10.0 mg/dL 8.7-10.2 1999-8) [facility], venous uyfbn0131-11-23 15:13:00 Test Item Value Reference Range Interpretation Comments carbon dioxide, venous blood (test 23 mmol/L 20-29 code = 2027-1) [facility]chloride, [id number] 15:13:00 Test Item Value Reference Range Interpretation Comments chloride, serum (test code = 103 mmol/L 96-106 2075-0) [facility] Healthpotassium, [id number] 15:13:00 Test Item Value Reference Range Interpretation Comments potassium, serum (test code = 4.5 mmol/L 3.5-5.2 2823-3) [facility]odium, [id number] 15:13:00 Test Item Value Reference Range Interpretation Comments sodium, serum (test code = 2951-2) 140 mmol/L 134-144 [facility] nitrogen/creatinine ratio, [id number] 15:13:00 Test Item Value Reference Range Interpretation Comments urea nitrogen/creatinine 10 (unknown unit) 9-23 ratio, serum (test code = 3097-3) [facility] HealtheGFR if Pitldnmd1544-85-25 15:13:00 Test Item Value Reference Range Interpretation Comments eGFR if 117 mL/min/{1.73 m2} >59 (test code = 64290-3) [facility]hawEstimated Glomerular Filtration Rate (calc)2021-04-02 15:13:00 Test Item Value Reference Range Interpretation Comments Estimated Glomerular 102 mL/min/{1.73 m2} >59 Filtration Rate (calc) (test code = 97413-7) [facility], fgqbi8951-11-03 15:13:00 Test Item Value Reference Range Interpretation Comments creatinine, serum (test code = 0.83 mg/dL 0.57-1.00 2160-0) [facility] nitrogen, [id number] 15:13:00 Test Item Value Reference Range Interpretation Comments urea nitrogen, blood (test code = 8 mg/dL 6-20 3094-0) [facility] glucose, [id number] 15:13:00 Test Item Value Reference Range Interpretation Comments blood glucose, random (test code = 96 mg/dL 65-99 2339-0) [facility]immature granulocytes, percentage of total cells, blood 2021-04-02 15:13:00 Test Item Value Reference Range Interpretation Comments immature granulocytes, percentage of 0 % total cells, blood (test code = 38268-7) [facility]ophil count, iglwfgkj1308-17-92 15:13:00 Test Item Value Reference Range Interpretation Comments basophil count, absolute (test 0.0 x10E3/uL 0.0-0.2 code = 04824-7) [facility] HealthEosinophil Absolute Nimzw5949-54-75 15:13:00 Test Item Value Reference Range Interpretation Comments Eosinophil Absolute Count (test 0.2 X10E3/UL 0.0-0.4 code = 26465-2) [facility] Healthmonocyte count, blood, hnxhrnkob6356-72-98 15:13:00 Test Item Value Reference Range Interpretation Comments monocyte count, blood, automated 0.8 X10E3/UL 0.1-0.9 (test code = 742-7) [facility] Healthlymphocyte count, blood, dizsijqqf0656-83-12 15:13:00 Test Item Value Reference Range Interpretation Comments lymphocyte count, blood, 3.7 X10E3/UL 0.7-3.1 H automated (test code = 731-0) [facility] HealthAbsolute Xsatvkkhnhz7386-55-49 15:13:00 Test Item Value Reference Range Interpretation Comments Absolute Neutrophils (test code 4.2 X10E3/UL 1.4-7.0 = 47461-4) [facility] Healthbasophils as percent of blood xuaxzpiwnf2502-56-46 15:13:00 Test Item Value Reference Range Interpretation Comments basophils as percent of blood 0 % leukocytes (test code = 707-0) [facility] Healtheosinophils as percent of blood ahzechugko2298-27-54 15:13:00 Test Item Value Reference Range Interpretation Comments eosinophils as percent of blood 2 % leukocytes (test code = 713-8) [facility] Healthmonocytes as percent of blood kjzqyqswia8110-12-48 15:13:00 Test Item Value Reference Range Interpretation Comments monocytes as percent of blood 9 % leukocytes (test code = 5905-5) [facility] Healthlymphocytes as percent of blood fsykuoswfo9527-86-41 15:13:00 Test Item Value Reference Range Interpretation Comments lymphocytes as percent of blood 42 % leukocytes (test code = 736-9) [facility] Healthneutrophils as percent of blood evumdhzxcq0079-76-64 15:13:00 Test Item Value Reference Range Interpretation Comments neutrophils as percent of blood 47 % leukocytes (test code = 770-8) [facility]hawplatelet zjcvw9638-88-68 15:13:00 Test Item Value Reference Range Interpretation Comments platelet count (test code = 205 X10E3/UL 150-450 777-3) [facility]red blood cell distribution rtyoi2047-78-21 15:13:00 Test Item Value Reference Range Interpretation Comments red blood cell distribution width 14.4 % 11.7-15.4 (test code = 788-0) [facility] corpuscular hemoglobin concentration, [id number] 15:13:00 Test Item Value Reference Range Interpretation Comments mean corpuscular hemoglobin 33.2 G/DL 31.5-35.7 concentration, RBC (test code = 786-4) [facility] corpuscular hemoglobin, [id number] 15:13:00 Test Item Value Reference Range Interpretation Comments mean corpuscular hemoglobin, RBC 27.9 pg 26.6-33.0 (test code = 785-6) [facility] corpuscular volume, [id number] 15:13:00 Test Item Value Reference Range Interpretation Comments mean corpuscular volume, RBC (test code 84 fL 79-97 = 787-2) [facility]ocrit, [id number] 15:13:00 Test Item Value Reference Range Interpretation Comments hematocrit, blood (test code = 4544-3) 45.5 % 34.0-46.6 [facility]hemoglobin, [id number] 15:13:00 Test Item Value Reference Range Interpretation Comments hemoglobin, blood (test code = 15.1 g/dL 11.1-15.9 718-7) [facility]throcyte (RBC) mhzvu1399-85-74 15:13:00 Test Item Value Reference Range Interpretation Comments erythrocyte (RBC) count (test 5.42 X10E6/UL 3.77-5.28 H code = 789-8) [facility]ukocyte count, [id number] 15:13:00 Test Item Value Reference Range Interpretation Comments leukocyte count, blood (test 8.9 X10E3/UL 3.4-10.8 code = 6690-2) [facility]neutrophils as percent of blood fujycotoqc1511-54-89 13:06:00 Test Item Value Reference Range Interpretation Comments neutrophils as percent of blood 49 % leukocytes (test code = 770-8) [facility]platelet qrvyf8062-62-74 13:06:00 Test Item Value Reference Range Interpretation Comments platelet count (test code = 231 X10E3/UL 150-450 777-3) [facility] blood cell distribution lgyez1861-33-60 13:06:00 Test Item Value Reference Range Interpretation Comments red blood cell distribution width 14.1 % 11.7-15.4 (test code = 788-0) [facility] corpuscular hemoglobin concentration, [id number] 13:06:00 Test Item Value Reference Range Interpretation Comments mean corpuscular hemoglobin 30.8 G/DL 31.5-35.7 L concentration, RBC (test code = 786-4) [facility] corpuscular hemoglobin, [id number] 13:06:00 Test Item Value Reference Range Interpretation Comments mean corpuscular hemoglobin, RBC 25.5 pg 26.6-33.0 L (test code = 785-6) [facility] corpuscular volume, [id number] 13:06:00 Test Item Value Reference Range Interpretation Comments mean corpuscular volume, RBC (test code 83 fL 79-97 = 787-2) [facility]ocrit, apdtw1569-98-25 13:06:00 Test Item Value Reference Range Interpretation Comments hematocrit, blood (test code = 4544-3) 46.5 % 34.0-46.6 [facility], [id number] 13:06:00 Test Item Value Reference Range Interpretation Comments hemoglobin, blood (test code = 14.3 g/dL 11.1-15.9 718-7) [facility]throcyte (RBC) vdegs4985-40-46 13:06:00 Test Item Value Reference Range Interpretation Comments erythrocyte (RBC) count (test 5.61 X10E6/UL 3.77-5.28 H code = 789-8) [facility]ukocyte count, [id number] 13:06:00 Test Item Value Reference Range Interpretation Comments leukocyte count, blood (test 8.8 X10E3/UL 3.4-10.8 code = 6690-2) [facility]hawvitamin D 25-hydroxy, kkavp6880-75-63 13:06:00 Test Item Value Reference Range Interpretation Comments vitamin D 25-hydroxy, serum (test 23.9 ng/mL 30.0-100.0 L code = 40583-8) [facility]osterone, serum, [id number] 13:06:00 Test Item Value Reference Range Interpretation Comments testosterone, serum, free (test 8.8 pg/mL 0.0-4.2 H code = 2991-8) [facility]osterone, [id number] 13:06:00 Test Item Value Reference Range Interpretation Comments testosterone, total (test code = 463 ng/dL 8-48 H 2986-8) [facility] cholesterol, [id number] 13:06:00 Test Item Value Reference Range Interpretation Comments LDL cholesterol, serum (test code = 104 mg/dL 0-99 H 2088-) [facility] low density cmyatlkmerwy0143-34-42 13:06:00 Test Item Value Reference Range Interpretation Comments very low density lipoproteins (test 11 mg/dL 5-40 code = 2091-7) [facility] cholesterol, cxewu6027-99-21 13:06:00 Test Item Value Reference Range Interpretation Comments HDL cholesterol, serum (test code = 64 mg/dL >39 2084-9) [facility]lycer[facility], serum, knxsquy6733-80-02 13:06:00 Test Item Value Reference Range Interpretation Comments triglyceride, serum, fasting (test 54 mg/dL 0-149 code = 2571-8) [facility], epnjr9348-98-17 13:06:00 Test Item Value Reference Range Interpretation Comments cholesterol, serum (test code = 179 mg/dL 783-688 0517-3) [facility] aminotransferase (SGPT), aapgd4771-17-54 13:06:00 Test Item Value Reference Range Interpretation Comments alanine aminotransferase (SGPT), serum 13 1/L 0-32 (test code = 1742-6) [facility]partate aminotransferase (SGOT), rmocu0543-07-84 13:06:00 Test Item Value Reference Range Interpretation Comments aspartate aminotransferase (SGOT), 20 1/L 0-40 serum (test code = 1920-8) [facility] Healthalkaline phosphatase, retwg8656-50-48 13:06:00 Test Item Value Reference Range Interpretation Comments alkaline phosphatase, serum (test code 98 1/L 39-117 = 1783-0) [facility] Healthbilirubin, serum, [id number] 13:06:00 Test Item Value Reference Range Interpretation Comments bilirubin, serum, total (test code 0.3 mg/dL 0.0-1.2 = 1975-2) [facility] Healthalbumin/globulin ratio, [id number] 13:06:00 Test Item Value Reference Range Interpretation Comments albumin/globulin ratio, 2.0 (unknown unit) 1.2-2.2 serum (test code = 1759-0) [facility] Healthglobulin, [id number] 13:06:00 Test Item Value Reference Range Interpretation Comments globulin, serum (test code 2.5 (unknown unit) 1.5-4.5 = 2336-6) [facility] Healthalbumin, [id number] 13:06:00 Test Item Value Reference Range Interpretation Comments albumin, serum (test code = 1751-7) 5.0 g/dL 3.9-5.0 [facility], total, [id number] 13:06:00 Test Item Value Reference Range Interpretation Comments protein, total, serum (test code = 7.5 g/dL 6.0-8.5 2885-2) [facility], [id number] 13:06:00 Test Item Value Reference Range Interpretation Comments calcium, serum (test code = 10.0 mg/dL 8.7-10.2 1999-8) [facility] dioxide, venous ighxw8456-59-98 13:06:00 Test Item Value Reference Range Interpretation Comments carbon dioxide, venous blood (test 23 mmol/L -29 code = 7-1) [facility]chloride, [id number] 13:06:00 Test Item Value Reference Range Interpretation Comments chloride, serum (test code = 103 mmol/L 96-106 2075-0) [facility] Healthpotassium, [id number] 13:06:00 Test Item Value Reference Range Interpretation Comments potassium, serum (test code = 4.5 mmol/L 3.5-5.2 2823-3) [facility]odium, [id number] 13:06:00 Test Item Value Reference Range Interpretation Comments sodium, serum (test code = 2951-2) 141 mmol/L 134-144 [facility] nitrogen/creatinine ratio, ogngy8178-37-33 13:06:00 Test Item Value Reference Range Interpretation Comments urea nitrogen/creatinine 15 (unknown unit) 9-23 ratio, serum (test code = 3097-3) [facility]weGFR if Mmfeiosm5295-23-23 13:06:00 Test Item Value Reference Range Interpretation Comments eGFR if 114 mL/min/{1.73 m2} >59 (test code = 30198-4) [facility]hawEstimated Glomerular Filtration Rate (calc)2021-01-08 13:06:00 Test Item Value Reference Range Interpretation Comments Estimated Glomerular 99 mL/min/{1.73 m2} >59 Filtration Rate (calc) (test code = 56592-8) [facility]inine, [id number] 13:06:00 Test Item Value Reference Range Interpretation Comments creatinine, serum (test code = 0.85 mg/dL 0.57-1.00 2160-0) [facility] nitrogen, [id number] 13:06:00 Test Item Value Reference Range Interpretation Comments urea nitrogen, blood (test code = 13 mg/dL 6-20 3094-0) [facility] glucose, ajjykk7450-83-31 13:06:00 Test Item Value Reference Range Interpretation Comments blood glucose, random (test code = 84 mg/dL 65-99 2339-0) [facility]immature granulocytes, percentage of total cells, blood 2021-01-08 13:06:00 Test Item Value Reference Range Interpretation Comments immature granulocytes, percentage of 0 % total cells, blood (test code = 86793-1) [facility]basophil count, wctnhrtc2476-02-73 13:06:00 Test Item Value Reference Range Interpretation Comments basophil count, absolute (test 0.0 x10E3/uL 0.0-0.2 code = 48684-6) [facility] HealthEosinophil Absolute Gvpvt6386-08-65 13:06:00 Test Item Value Reference Range Interpretation Comments Eosinophil Absolute Count (test 0.2 X10E3/UL 0.0-0.4 code = 87144-8) [facility] Healthmonocyte count, blood, tqvunlwni8094-26-90 13:06:00 Test Item Value Reference Range Interpretation Comments monocyte count, blood, automated 0.8 X10E3/UL 0.1-0.9 (test code = 742-7) [facility] Healthlymphocyte count, blood, ozhxuqvlu3981-33-25 13:06:00 Test Item Value Reference Range Interpretation Comments lymphocyte count, blood, 3.4 X10E3/UL 0.7-3.1 H automated (test code = 731-0) [facility] HealthAbsolute Meikbveufqe2805-69-36 13:06:00 Test Item Value Reference Range Interpretation Comments Absolute Neutrophils (test code 4.4 X10E3/UL 1.4-7.0 = 62598-6) [facility] Healthbasophils as percent of blood tkfmlmptyp4897-94-89 13:06:00 Test Item Value Reference Range Interpretation Comments basophils as percent of blood 1 % leukocytes (test code = 707-0) [facility] Healtheosinophils as percent of blood kynzdnwlkp9689-74-39 13:06:00 Test Item Value Reference Range Interpretation Comments eosinophils as percent of blood 3 % leukocytes (test code = 713-8) [facility] Healthmonocytes as percent of blood zkmujhkfqr6176-25-85 13:06:00 Test Item Value Reference Range Interpretation Comments monocytes as percent of blood 9 % leukocytes (test code = 5905-5) [facility] as percent of blood eahrhmtews0837-52-51 13:06:00 Test Item Value Reference Range Interpretation Comments lymphocytes as percent of blood 38 % leukocytes (test code = 736-9) [facility]testosterone, serum, sglo4461-42-00 11:50:00 Test Item Value Reference Range Interpretation Comments testosterone, serum, free (test 10.9 pg/mL 0.0-4.2 H code = 2991-8) [facility]testosterone, gtbsd1361-88-82 11:50:00 Test Item Value Reference Range Interpretation Comments testosterone, total (test code = 515 ng/dL 8-48 H 6-8) [facility]LDL cholesterol, rkrek2813-73-88 11:50:00 Test Item Value Reference Range Interpretation Comments LDL cholesterol, serum (test code = 100 mg/dL 0-99 H 2088-10) [facility] low density bogezgavtztl7214-82-59 11:50:00 Test Item Value Reference Range Interpretation Comments very low density lipoproteins (test 8 mg/dL 5-40 code = 2091-7) [facility] cholesterol, guxgu9717-60-93 11:50:00 Test Item Value Reference Range Interpretation Comments HDL cholesterol, serum (test code = 57 mg/dL >39 2085-06) [facility]lyceride, serum, gdpsbgo7457-91-81 11:50:00 Test Item Value Reference Range Interpretation Comments triglyceride, serum, fasting (test 37 mg/dL 0-149 code = 2571-8) [facility]olesterol, ddvdb9748-19-38 11:50:00 Test Item Value Reference Range Interpretation Comments cholesterol, serum (test code = 165 mg/dL 187-243 9452-3) [facility] aminotransferase (SGPT), voueq1762-58-72 11:50:00 Test Item Value Reference Range Interpretation Comments alanine aminotransferase (SGPT), serum 13 1/L 0-32 (test code = 1742-6) [facility]partate aminotransferase (SGOT), rwuog0531-04-65 11:50:00 Test Item Value Reference Range Interpretation Comments aspartate aminotransferase (SGOT), 18 1/L 0-40 serum (test code = 1920-8) [facility]aline phosphatase, uorcw5933-94-24 11:50:00 Test Item Value Reference Range Interpretation Comments alkaline phosphatase, serum (test code 82 1/L 39-117 = 1783-0) [facility]irubin, serum, [id number] 11:50:00 Test Item Value Reference Range Interpretation Comments bilirubin, serum, total (test code 0.2 mg/dL 0.0-1.2 = 1975-2) [facility]albumin/globulin ratio, tlslu7497-33-18 11:50:00 Test Item Value Reference Range Interpretation Comments albumin/globulin ratio, 2.3 (unknown unit) 1.2-2.2 H serum (test code = 1759-0) [facility] Healthglobulin, qcmbi3611-90-63 11:50:00 Test Item Value Reference Range Interpretation Comments globulin, serum (test code 2.2 (unknown unit) 1.5-4.5 = 2336-6) [facility] Healthalbumin, [id number] 11:50:00 Test Item Value Reference Range Interpretation Comments albumin, serum (test code = 1751-7) 5.0 g/dL 3.9-5.0 [facility] Healthprotein, total, [id number] 11:50:00 Test Item Value Reference Range Interpretation Comments protein, total, serum (test code = 7.2 g/dL 6.0-8.5 2885-2) [facility] Healthcalcium, [id number] 11:50:00 Test Item Value Reference Range Interpretation Comments calcium, serum (test code = 1999-8) 9.7 mg/dL 8.7-10.2 [facility] dioxide, venous roiwc9769-14-25 11:50:00 Test Item Value Reference Range Interpretation Comments carbon dioxide, venous blood (test 23 mmol/L 20-29 code = 2026-1) [facility] Healthchloride, [id number] 11:50:00 Test Item Value Reference Range Interpretation Comments chloride, serum (test code = 103 mmol/L 96-106 5-0) [facility], dedoy8237-99-23 11:50:00 Test Item Value Reference Range Interpretation Comments potassium, serum (test code = 4.1 mmol/L 3.5-5.2 2823-3) [facility] Healthsodium, [id number] 11:50:00 Test Item Value Reference Range Interpretation Comments sodium, serum (test code = 2951-2) 140 mmol/L 134-144 [facility] nitrogen/creatinine ratio, pemln4989-65-53 11:50:00 Test Item Value Reference Range Interpretation Comments urea nitrogen/creatinine 18 (unknown unit) 9-23 ratio, serum (test code = 3097-3) [facility] HealtheGFR if Zobsceom6354-25-02 11:50:00 Test Item Value Reference Range Interpretation Comments eGFR if 105 mL/min/{1.73 m2} >59 (test code = 97819-9) [facility]hawEstimated Glomerular Filtration Rate (calc)2020-08-14 11:50:00 Test Item Value Reference Range Interpretation Comments Estimated Glomerular 91 mL/min/{1.73 m2} >59 Filtration Rate (calc) (test code = 55317-8) [facility]inine, jknaz7303-57-20 11:50:00 Test Item Value Reference Range Interpretation Comments creatinine, serum (test code = 0.91 mg/dL 0.57-1.00 2160-0) [facility] nitrogen, rjkio7584-31-45 11:50:00 Test Item Value Reference Range Interpretation Comments urea nitrogen, blood (test code = 16 mg/dL 6-20 3094-0) [facility] glucose, yosvju7490-56-35 11:50:00 Test Item Value Reference Range Interpretation Comments blood glucose, random (test code = 104 mg/dL 65-99 H 2339-0) [facility]hawimmature granulocytes, percentage of total cells, blood 2020-08-14 11:50:00 Test Item Value Reference Range Interpretation Comments immature granulocytes, percentage of 0 % total cells, blood (test code = 10666-3) [facility]ophil count, kxfcfqsz0603-18-39 11:50:00 Test Item Value Reference Range Interpretation Comments basophil count, absolute (test 0.0 x10E3/uL 0.0-0.2 code = 50211-3) [facility]hawEosinophil Absolute Tfpgq8301-18-09 11:50:00 Test Item Value Reference Range Interpretation Comments Eosinophil Absolute Count (test 0.2 X10E3/UL 0.0-0.4 code = 73063-8) [facility], tziiwaflz7950-27-14 11:50:00 Test Item Value Reference Range Interpretation Comments monocyte count, blood, automated 0.8 X10E3/UL 0.1-0.9 (test code = 742-7) [facility], blood, jqbjccldq2954-98-30 11:50:00 Test Item Value Reference Range Interpretation Comments lymphocyte count, blood, 3.3 X10E3/UL 0.7-3.1 H automated (test code = 731-0) [facility]Absolute Bwqtqixlbml5040-32-20 11:50:00 Test Item Value Reference Range Interpretation Comments Absolute Neutrophils (test code 4.3 X10E3/UL 1.4-7.0 = 93320-1) [facility]ophils as percent of blood gdentfnwrx5911-64-60 11:50:00 Test Item Value Reference Range Interpretation Comments basophils as percent of blood 1 % leukocytes (test code = 707-0) [facility] percent of blood ttmfprurzf9815-06-81 11:50:00 Test Item Value Reference Range Interpretation Comments eosinophils as percent of blood 2 % leukocytes (test code = 713-8) [facility] percent of blood zjxdaujoov2969-95-89 11:50:00 Test Item Value Reference Range Interpretation Comments monocytes as percent of blood 9 % leukocytes (test code = 5905-5) [facility]ocytes as percent of blood ylyidpinpq7148-66-93 11:50:00 Test Item Value Reference Range Interpretation Comments lymphocytes as percent of blood 39 % leukocytes (test code = 736-9) [facility]rophils as percent of blood ikkdytxkfm2450-81-09 11:50:00 Test Item Value Reference Range Interpretation Comments neutrophils as percent of blood 49 % leukocytes (test code = 770-8) [facility]hawplatelet jspoi1963-44-31 11:50:00 Test Item Value Reference Range Interpretation Comments platelet count (test code = 234 X10E3/UL 150-450 777-3) [facility] blood cell distribution rdxfk9222-64-06 11:50:00 Test Item Value Reference Range Interpretation Comments red blood cell distribution width 14.6 % 11.7-15.4 (test code = 788-0) [facility] corpuscular hemoglobin concentration, [id number] 11:50:00 Test Item Value Reference Range Interpretation Comments mean corpuscular hemoglobin 31.1 G/DL 31.5-35.7 L concentration, RBC (test code = 786-4) [facility] corpuscular hemoglobin, [id number] 11:50:00 Test Item Value Reference Range Interpretation Comments mean corpuscular hemoglobin, RBC 25.3 pg 26.6-33.0 L (test code = 785-6) [facility] corpus[facility] volume, ULI4807-02-07 11:50:00 Test Item Value Reference Range Interpretation Comments mean corpuscular volume, RBC (test code 81 fL 79-97 = 787-2) [facility]hematocrit, jctbe4474-97-48 11:50:00 Test Item Value Reference Range Interpretation Comments hematocrit, blood (test code = 4544-3) 44.0 % 34.0-46.6 [facility]hemoglobin, yxowi8212-52-73 11:50:00 Test Item Value Reference Range Interpretation Comments hemoglobin, blood (test code = 13.7 g/dL 11.1-15.9 718-7) [facility]throcyte (RBC) oftfe2542-64-30 11:50:00 Test Item Value Reference Range Interpretation Comments erythrocyte (RBC) count (test 5.41 X10E6/UL 3.77-5.28 H code = 789-8) [facility]ukocyte count, ihiqo3371-87-48 11:50:00 Test Item Value Reference Range Interpretation Comments leukocyte count, blood (test 8.6 X10E3/UL 3.4-10.8 code = 6690-2) [facility]testosterone, serum, xoad4743-74-28 14:00:00 Test Item Value Reference Range Interpretation Comments testosterone, serum, free (test 10.2 pg/mL 0.0-4.2 H code = 2991-8) [facility]testosterone, ipnyc5755-97-43 14:00:00 Test Item Value Reference Range Interpretation Comments testosterone, total (test code = 795 ng/dL 8-48 H 2986-8) [facility]LDL cholesterol, szmbp5334-98-12 14:00:00 Test Item Value Reference Range Interpretation Comments LDL cholesterol, serum (test code = 92 mg/dL 0-99 9-1) [facility] low density lkxqacnbyfot2014-39-36 14:00:00 Test Item Value Reference Range Interpretation Comments very low density lipoproteins (test 10 mg/dL 5-40 code = 2091-7) [facility]HDL cholesterol, vhyhs4434-89-83 14:00:00 Test Item Value Reference Range Interpretation Comments HDL cholesterol, serum (test code = 57 mg/dL >39 5-9) [facility]triglyceride, serum, lnmmnfd1137-31-70 14:00:00 Test Item Value Reference Range Interpretation Comments triglyceride, serum, fasting (test 48 mg/dL 0-149 code = 2571-8) [facility]cholesterol, iceyo4119-93-91 14:00:00 Test Item Value Reference Range Interpretation Comments cholesterol, serum (test code = 159 mg/dL 254-796 8005-3) [facility]alanine aminotransferase (SGPT), mtyiq0067-44-89 14:00:00 Test Item Value Reference Range Interpretation Comments alanine aminotransferase (SGPT), serum 11 1/L 0-32 (test code = 1742-6) [facility]hawaspartate aminotransferase (SGOT), wxbct6146-94-80 14:00:00 Test Item Value Reference Range Interpretation Comments aspartate aminotransferase (SGOT), 20 1/L 0-40 serum (test code = 1920-8) [facility]alkaline phosphatase, witpx9479-35-98 14:00:00 Test Item Value Reference Range Interpretation Comments alkaline phosphatase, serum (test code 71 1/L 39-117 = 1783-0) [facility]irubin, serum, [id number] 14:00:00 Test Item Value Reference Range Interpretation Comments bilirubin, serum, total (test code 0.5 mg/dL 0.0-1.2 = 1975-2) [facility]albumin/globulin ratio, awjxq9858-46-64 14:00:00 Test Item Value Reference Range Interpretation Comments albumin/globulin ratio, 1.8 (unknown unit) 1.2-2.2 serum (test code = 1759-0) [facility]globulin, ezplr8314-05-05 14:00:00 Test Item Value Reference Range Interpretation Comments globulin, serum (test code 2.6 (unknown unit) 1.5-4.5 = 2336-6) [facility]albumin, almao3799-80-51 14:00:00 Test Item Value Reference Range Interpretation Comments albumin, serum (test code = 1751-7) 4.6 g/dL 3.9-5.0 [facility] Healthprotein, total, mddyl0036-02-97 14:00:00 Test Item Value Reference Range Interpretation Comments protein, total, serum (test code = 7.2 g/dL 6.0-8.5 2885-2) [facility]calcium, [id number] 14:00:00 Test Item Value Reference Range Interpretation Comments calcium, serum (test code = 1999-8) 9.9 mg/dL 8.7-10.2 [facility] dioxide, venous fjwcw2276-42-10 14:00:00 Test Item Value Reference Range Interpretation Comments carbon dioxide, venous blood (test 23 mmol/L 20-29 code = 2027-1) [facility]chloride, rkwcj5945-09-77 14:00:00 Test Item Value Reference Range Interpretation Comments chloride, serum (test code = 103 mmol/L 96-106 2075-0) [facility]potassium, rwhub2312-80-51 14:00:00 Test Item Value Reference Range Interpretation Comments potassium, serum (test code = 4.1 mmol/L 3.5-5.2 2823-3) [facility]odium, rduwc7101-51-74 14:00:00 Test Item Value Reference Range Interpretation Comments sodium, serum (test code = 2951-2) 140 mmol/L 134-144 [facility]a nitrogen/creatinine ratio, nlpot6296-25-12 14:00:00 Test Item Value Reference Range Interpretation Comments urea nitrogen/creatinine 13 (unknown unit) 9-23 ratio, serum (test code = 3097-3) [facility]weGFR if Pxrxoqwb2949-71-61 14:00:00 Test Item Value Reference Range Interpretation Comments eGFR if 112 mL/min/{1.73 m2} >59 (test code = 26589-2) [facility]hawEstimated Glomerular Filtration Rate (calc)2020-05-22 14:00:00 Test Item Value Reference Range Interpretation Comments Estimated Glomerular 98 mL/min/{1.73 m2} >59 Filtration Rate (calc) (test code = 38043-3) [facility]inine, aidko1939-30-35 14:00:00 Test Item Value Reference Range Interpretation Comments creatinine, serum (test code = 0.86 mg/dL 0.57-1.00 2160-0) [facility] Healthurea nitrogen, bfgll2897-29-92 14:00:00 Test Item Value Reference Range Interpretation Comments urea nitrogen, blood (test code = 11 mg/dL 6-20 3094-0) [facility] glucose, ipwmot2034-96-48 14:00:00 Test Item Value Reference Range Interpretation Comments blood glucose, random (test code = 76 mg/dL 65-99 2339-0) [facility]hawimmature granulocytes, percentage of total cells, blood 2020-05-22 14:00:00 Test Item Value Reference Range Interpretation Comments immature granulocytes, percentage of 0 % total cells, blood (test code = 93773-5) [facility]ophil count, mlhtxiri0325-20-42 14:00:00 Test Item Value Reference Range Interpretation Comments basophil count, absolute (test 0.0 x10E3/uL 0.0-0.2 code = 80178-0) [facility]hawEosinophil Absolute Duqci2572-51-63 14:00:00 Test Item Value Reference Range Interpretation Comments Eosinophil Absolute Count (test 0.2 X10E3/UL 0.0-0.4 code = 99634-3) [facility] count, blood, fdafqetwn9900-51-51 14:00:00 Test Item Value Reference Range Interpretation Comments monocyte count, blood, automated 0.8 X10E3/UL 0.1-0.9 (test code = 742-7) [facility] count, blood, pdenpaueq3220-57-30 14:00:00 Test Item Value Reference Range Interpretation Comments lymphocyte count, blood, 3.5 X10E3/UL 0.7-3.1 H automated (test code = 731-0) [facility] Fmsbyzinyld9941-11-85 14:00:00 Test Item Value Reference Range Interpretation Comments Absolute Neutrophils (test code 4.2 X10E3/UL 1.4-7.0 = 71498-7) [facility]ophils as percent of blood ntflfxxuff5516-53-38 14:00:00 Test Item Value Reference Range Interpretation Comments basophils as percent of blood 0 % leukocytes (test code = 707-0) [facility] as percent of blood hkteujjunf0903-66-17 14:00:00 Test Item Value Reference Range Interpretation Comments eosinophils as percent of blood 2 % leukocytes (test code = 713-8) [facility] Healthmonocytes as percent of blood klllncfxwh9785-02-02 14:00:00 Test Item Value Reference Range Interpretation Comments monocytes as percent of blood 9 % leukocytes (test code = 5905-5) [facility]lymph[facility] as percent of blood iijkkplryc5517-42-81 14:00:00 Test Item Value Reference Range Interpretation Comments lymphocytes as percent of blood 41 % leukocytes (test code = 736-9) [facility]neutrophils as percent of blood wandbeqkgw1690-99-85 14:00:00 Test Item Value Reference Range Interpretation Comments neutrophils as percent of blood 48 % leukocytes (test code = 770-8) [facility]hawplatelet gngoz6309-89-33 14:00:00 Test Item Value Reference Range Interpretation Comments platelet count (test code = 240 X10E3/UL 150-450 777-3) [facility] blood cell distribution hevgt7466-03-74 14:00:00 Test Item Value Reference Range Interpretation Comments red blood cell distribution width 13.9 % 11.7-15.4 (test code = 788-0) [facility] corpuscular hemoglobin concentration, [id number] 14:00:00 Test Item Value Reference Range Interpretation Comments mean corpuscular hemoglobin 31.1 G/DL 31.5-35.7 L concentration, RBC (test code = 786-4) [facility] [id number] 14:00:00 Test Item Value Reference Range Interpretation Comments mean corpuscular hemoglobin, RBC 24.7 pg 26.6-33.0 L (test code = 785-6) [facility], [id number] 14:00:00 Test Item Value Reference Range Interpretation Comments mean corpuscular volume, RBC (test code 79 fL 79-97 = 787-2) [facility]hematocrit, ediol4710-41-99 14:00:00 Test Item Value Reference Range Interpretation Comments hematocrit, blood (test code = 4544-3) 40.5 % 34.0-46.6 [facility]hemoglobin, mrztv6492-54-05 14:00:00 Test Item Value Reference Range Interpretation Comments hemoglobin, blood (test code = 12.6 g/dL 11.1-15.9 718-7) [facility]erythrocyte (RBC) gfgmd6670-64-56 14:00:00 Test Item Value Reference Range Interpretation Comments erythrocyte (RBC) count (test 5.10 X10E6/UL 3.77-5.28 code = 789-8) [facility]ukocyte count, hxgsn1658-35-23 14:00:00 Test Item Value Reference Range Interpretation Comments leukocyte count, blood (test 8.7 X10E3/UL 3.4-10.8 code = 6690-2) [facility]testosterone, serum, ykid1490-66-14 14:28:00 Test Item Value Reference Range Interpretation Comments testosterone, serum, free (test 13.3 pg/mL code = 2991-8) [facility]testosterone, utgjv8711-81-75 14:28:00 Test Item Value Reference Range Interpretation Comments testosterone, total (test code = 727 ng/dL 2986-8) [facility]hawLDL cholesterol, cupjm0102-63-67 14:28:00 Test Item Value Reference Range Interpretation Comments LDL cholesterol, serum (test code = 54 mg/dL 0-109 2088-1) [facility] clzqtwihqfab7292-80-36 14:28:00 Test Item Value Reference Range Interpretation Comments very low density lipoproteins (test 17 mg/dL 5-40 code = 2091-7) [facility]HDL cholesterol, rzinx0126-97-42 14:28:00 Test Item Value Reference Range Interpretation Comments HDL cholesterol, serum (test code = 57 mg/dL >39 2084-9) [facility]lyceride, serum, utxedyh5800-51-56 14:28:00 Test Item Value Reference Range Interpretation Comments triglyceride, serum, fasting (test 83 mg/dL 0-89 code = 2571-8) [facility]olesterol, fmftu4715-40-22 14:28:00 Test Item Value Reference Range Interpretation Comments cholesterol, serum (test code = 128 mg/dL 068-026 6948-3) [facility] aminotransferase (SGPT), gdjiw7470-93-59 14:28:00 Test Item Value Reference Range Interpretation Comments alanine aminotransferase (SGPT), serum 11 1/L 0-32 (test code = 1742-6) [facility]hawaspartate aminotransferase (SGOT), wbrgp0171-23-11 14:28:00 Test Item Value Reference Range Interpretation Comments aspartate aminotransferase (SGOT), 17 1/L 0-40 serum (test code = 1920-8) [facility]alkaline phosphatase, hydoh1521-53-73 14:28:00 Test Item Value Reference Range Interpretation Comments alkaline phosphatase, serum (test code 64 1/L 39-117 = 1783-0) [facility]irubin, serum, fnoof3046-33-12 14:28:00 Test Item Value Reference Range Interpretation Comments bilirubin, serum, total (test code 0.2 mg/dL 0.0-1.2 = 1975-2) [facility]albumin/globulin ratio, fsnsq2686-07-37 14:28:00 Test Item Value Reference Range Interpretation Comments albumin/globulin ratio, 2.2 (unknown unit) 1.2-2.2 serum (test code = 1759-0) [facility] Healthglobulin, nowrh4770-80-80 14:28:00 Test Item Value Reference Range Interpretation Comments globulin, serum (test code 2.0 (unknown unit) 1.5-4.5 = 2336-6) [facility] Healthalbumin, rpraa2986-07-20 14:28:00 Test Item Value Reference Range Interpretation Comments albumin, serum (test code = 1751-7) 4.4 g/dL 3.9-5.0 [facility]protein, total, rwlyk0471-21-37 14:28:00 Test Item Value Reference Range Interpretation Comments protein, total, serum (test code = 6.4 g/dL 6.0-8.5 2885-2) [facility]calcium, cijdf0003-51-53 14:28:00 Test Item Value Reference Range Interpretation Comments calcium, serum (test code = 1999-8) 9.7 mg/dL 8.7-10.2 [facility] dioxide, venous mryui4441-00-38 14:28:00 Test Item Value Reference Range Interpretation Comments carbon dioxide, venous blood (test 24 mmol/L 20-29 code = 2027-1) [facility] Healthchloride, bilkk3425-53-99 14:28:00 Test Item Value Reference Range Interpretation Comments chloride, serum (test code = 103 mmol/L 96-106 2075-0) [facility] Healthpotassium, rfzdh0030-83-63 14:28:00 Test Item Value Reference Range Interpretation Comments potassium, serum (test code = 4.1 mmol/L 3.5-5.2 2823-3) [facility] Healthsodium, ahalk8712-52-90 14:28:00 Test Item Value Reference Range Interpretation Comments sodium, serum (test code = 2951-2) 142 mmol/L 134-144 [facility] nitrogen/creatinine ratio, saeua6959-52-40 14:28:00 Test Item Value Reference Range Interpretation Comments urea nitrogen/creatinine 12 (unknown unit) 9-23 ratio, serum (test code = 3097-3) [facility] HealtheGFR if Fvdvklbs4703-74-41 14:28:00 Test Item Value Reference Range Interpretation Comments eGFR if 138 mL/min/{1.73 m2} >59 (test code = 15958-3) [facility]hawEstimated Glomerular Filtration Rate (calc)2020-03-27 14:28:00 Test Item Value Reference Range Interpretation Comments Estimated Glomerular 120 mL/min/{1.73 m2} >59 Filtration Rate (calc) (test code = 68831-4) [facility]creatinine, osazj0231-39-56 14:28:00 Test Item Value Reference Range Interpretation Comments creatinine, serum (test code = 0.73 mg/dL 0.57-1.00 2160-0) [facility] nitrogen, vpnnp2584-71-37 14:28:00 Test Item Value Reference Range Interpretation Comments urea nitrogen, blood (test code = 9 mg/dL 6-20 3094-0) [facility]blood glucose, gkfoge5713-63-46 14:28:00 Test Item Value Reference Range Interpretation Comments blood glucose, random (test code = 83 mg/dL 65-99 2339-0) [facility]immature granulocytes, percentage of total cells, blood 2020-03-27 14:28:00 Test Item Value Reference Range Interpretation Comments immature granulocytes, percentage of 0 % total cells, blood (test code = 14464-8) [facility]basophil count, gixkeawm3321-78-30 14:28:00 Test Item Value Reference Range Interpretation Comments basophil count, absolute (test 0.0 x10E3/uL 0.0-0.2 code = 70381-1) [facility] HealthEosinophil Absolute Ysord8043-78-46 14:28:00 Test Item Value Reference Range Interpretation Comments Eosinophil Absolute Count (test 0.2 X10E3/UL 0.0-0.4 code = 50296-4) [facility] Healthmonocyte count, blood, jdkbaovri3832-68-79 14:28:00 Test Item Value Reference Range Interpretation Comments monocyte count, blood, automated 0.7 X10E3/UL 0.1-0.9 (test code = 742-7) [facility] count, blood, fophixciw8504-30-23 14:28:00 Test Item Value Reference Range Interpretation Comments lymphocyte count, blood, 3.0 X10E3/UL 0.7-3.1 automated (test code = 731-0) [facility] Jmmqhpfpwbo0336-61-36 14:28:00 Test Item Value Reference Range Interpretation Comments Absolute Neutrophils (test code 3.6 X10E3/UL 1.4-7.0 = 93193-6) [facility]ophils as percent of blood wissgmzdcp1077-80-13 14:28:00 Test Item Value Reference Range Interpretation Comments basophils as percent of blood 1 % leukocytes (test code = 707-0) [facility] Healtheosinophils as percent of blood ggildswuiq2848-37-26 14:28:00 Test Item Value Reference Range Interpretation Comments eosinophils as percent of blood 2 % leukocytes (test code = 713-8) [facility] Healthmonocytes as percent of blood frvfavsmef1886-15-91 14:28:00 Test Item Value Reference Range Interpretation Comments monocytes as percent of blood 9 % leukocytes (test code = 5905-5) [facility]lymphocytes as percent of blood hexptguymd0148-82-72 14:28:00 Test Item Value Reference Range Interpretation Comments lymphocytes as percent of blood 40 % leukocytes (test code = 736-9) [facility]hawneutrophils as percent of blood edsxstjvzq6404-18-89 14:28:00 Test Item Value Reference Range Interpretation Comments neutrophils as percent of blood 48 % leukocytes (test code = 770-8) [facility]hawplatelet dzaam9776-46-70 14:28:00 Test Item Value Reference Range Interpretation Comments platelet count (test code = 249 X10E3/UL 150-450 777-3) [facility]red blood cell distribution dwbzl4925-98-09 14:28:00 Test Item Value Reference Range Interpretation Comments red blood cell distribution width 12.8 % 11.7-15.4 (test code = 788-0) [facility], [id number] 14:28:00 Test Item Value Reference Range Interpretation Comments mean corpuscular hemoglobin 31.1 G/DL 31.5-35.7 L concentration, RBC (test code = 786-4) [facility] corpuscular hemoglobin, [id number] 14:28:00 Test Item Value Reference Range Interpretation Comments mean corpuscular hemoglobin, RBC 25.3 pg 26.6-33.0 L (test code = 785-6) [facility], [id number] 14:28:00 Test Item Value Reference Range Interpretation Comments mean corpuscular volume, RBC (test code 81 fL 79-97 = 787-2) [facility]hematocrit, kzxyz4916-30-60 14:28:00 Test Item Value Reference Range Interpretation Comments hematocrit, blood (test code = 4544-3) 39.9 % 34.0-46.6 [facility]hemoglobin, hpvsa7836-30-63 14:28:00 Test Item Value Reference Range Interpretation Comments hemoglobin, blood (test code = 12.4 g/dL 11.1-15.9 718-7) [facility]hawerythrocyte (RBC) qbaxh8616-45-04 14:28:00 Test Item Value Reference Range Interpretation Comments erythrocyte (RBC) count (test 4.91 X10E6/UL 3.77-5.28 code = 789-8) [facility]leukocyte count, iloew9065-38-40 14:28:00 Test Item Value Reference Range Interpretation Comments leukocyte count, blood (test 7.6 X10E3/UL 3.4-10.8 code = 6690-2) [facility] Healthtestosterone, serum, nbjn4423-96-01 13:40:00 Test Item Value Reference Range Interpretation Comments testosterone, serum, free (test 10.7 pg/mL code = 2991-8) [facility]hawtestosterone, tkovh9007-89-75 13:40:00 Test Item Value Reference Range Interpretation Comments testosterone, total (test code = 615 ng/dL 2986-8) [facility]hawLDL cholesterol, qrlye0217-74-64 13:40:00 Test Item Value Reference Range Interpretation Comments LDL cholesterol, serum (test code = 76 mg/dL 0-109 2088-1) [facility] low density ehhyxvriwufs9313-51-60 13:40:00 Test Item Value Reference Range Interpretation Comments very low density lipoproteins (test 9 mg/dL 5-40 code = 1-7) [facility]hawHDL cholesterol, tghwv3855-67-91 13:40:00 Test Item Value Reference Range Interpretation Comments HDL cholesterol, serum (test code = 55 mg/dL >39 2084-9) [facility]hawtriglyceride, serum, zynwaux1657-13-30 13:40:00 Test Item Value Reference Range Interpretation Comments triglyceride, serum, fasting (test 47 mg/dL 0-89 code = 2571-8) [facility]cholesterol, zianz2096-40-33 13:40:00 Test Item Value Reference Range Interpretation Comments cholesterol, serum (test code = 140 mg/dL 640-266 1475-3) [facility]alanine aminotransferase (SGPT), wuenh1858-78-13 13:40:00 Test Item Value Reference Range Interpretation Comments alanine aminotransferase (SGPT), serum 11 1/L 0-32 (test code = 1742-6) [facility]hawaspartate aminotransferase (SGOT), xczxe8253-22-36 13:40:00 Test Item Value Reference Range Interpretation Comments aspartate aminotransferase (SGOT), 17 1/L 0-40 serum (test code = 1920-8) [facility]hawalkaline phosphatase, bnsdr7174-54-81 13:40:00 Test Item Value Reference Range Interpretation Comments alkaline phosphatase, serum (test code 67 1/L 39-117 = 1783-0) [facility] Healthbilirubin, serum, uqgcr3786-24-47 13:40:00 Test Item Value Reference Range Interpretation Comments bilirubin, serum, total (test code 0.4 mg/dL 0.0-1.2 = 1975-2) [facility] Healthalbumin/globulin ratio, vckov0394-74-79 13:40:00 Test Item Value Reference Range Interpretation Comments albumin/globulin ratio, 1.9 (unknown unit) 1.2-2.2 serum (test code = 1759-0) [facility] Healthglobulin, repbv8962-34-86 13:40:00 Test Item Value Reference Range Interpretation Comments globulin, serum (test code 2.3 (unknown unit) 1.5-4.5 = 2336-6) [facility] Healthalbumin, akovb3200-98-65 13:40:00 Test Item Value Reference Range Interpretation Comments albumin, serum (test code = 1751-7) 4.3 g/dL 3.9-5.0 [facility]protein, total, fbbip8981-22-85 13:40:00 Test Item Value Reference Range Interpretation Comments protein, total, serum (test code = 6.6 g/dL 6.0-8.5 2885-2) [facility]calcium, jxedj7485-09-66 13:40:00 Test Item Value Reference Range Interpretation Comments calcium, serum (test code = 1999-8) 9.5 mg/dL 8.7-10.2 [facility] dioxide, venous knfbi3478-54-46 13:40:00 Test Item Value Reference Range Interpretation Comments carbon dioxide, venous blood (test 24 mmol/L code = 7-1) [facility] Healthchloride, [id number] 13:40:00 Test Item Value Reference Range Interpretation Comments chloride, serum (test code = 103 mmol/L 96-106 5-0) [facility] [id number] 13:40:00 Test Item Value Reference Range Interpretation Comments potassium, serum (test code = 4.2 mmol/L 3.5-5.2 2823-3) [facility]odium, [id number] 13:40:00 Test Item Value Reference Range Interpretation Comments sodium, serum (test code = 2951-2) 139 mmol/L 134-144 [facility] nitrogen/creatinine ratio, mfsvh1273-80-59 13:40:00 Test Item Value Reference Range Interpretation Comments urea nitrogen/creatinine 11 (unknown unit) 9-23 ratio, serum (test code = 3097-3) [facility] Vvxycyxu4223-89-04 13:40:00 Test Item Value Reference Range Interpretation Comments eGFR if 124 mL/min/{1.73 m2} >59 (test code = 60238-0) [facility]ated Glomer[facility] Filtration Rate (calc)2020-02-14 13:40:00 Test Item Value Reference Range Interpretation Comments Estimated Glomerular 107 mL/min/{1.73 m2} >59 Filtration Rate (calc) (test code = 26545-4) [facility], [id number] 13:40:00 Test Item Value Reference Range Interpretation Comments creatinine, serum (test code = 0.80 mg/dL 0.57-1.00 2160-0) [facility] nitrogen, geosy6907-00-84 13:40:00 Test Item Value Reference Range Interpretation Comments urea nitrogen, blood (test code = 9 mg/dL 6-20 3094-0) [facility] glucose, [id number] 13:40:00 Test Item Value Reference Range Interpretation Comments blood glucose, random (test code = 83 mg/dL 65-99 2339-0) [facility]ature granulocytes, percentage of total cells, blood 2020-02-14 13:40:00 Test Item Value Reference Range Interpretation Comments immature granulocytes, percentage of 0 % total cells, blood (test code = 50161-7) [facility] count, [id number] 13:40:00 Test Item Value Reference Range Interpretation Comments basophil count, absolute (test 0.0 x10E3/uL 0.0-0.2 code = 44431-1) [facility]haw[facility]osinophil Absolute Fqpgh1929-57-22 13:40:00 Test Item Value Reference Range Interpretation Comments Eosinophil Absolute Count (test 0.2 X10E3/UL 0.0-0.4 code = 44958-9) [facility]ocyte count, blood, zomuotfjj1667-88-26 13:40:00 Test Item Value Reference Range Interpretation Comments monocyte count, blood, automated 0.7 X10E3/UL 0.1-0.9 (test code = 742-7) [facility] count, blood, hkhohokgt2661-14-02 13:40:00 Test Item Value Reference Range Interpretation Comments lymphocyte count, blood, 2.4 X10E3/UL 0.7-3.1 automated (test code = 731-0) [facility] Xtxfewomodd1201-68-31 13:40:00 Test Item Value Reference Range Interpretation Comments Absolute Neutrophils (test code 5.3 X10E3/UL 1.4-7.0 = 91416-3) [facility]ophils as percent of blood zqoigdqtlr6449-13-77 13:40:00 Test Item Value Reference Range Interpretation Comments basophils as percent of blood 0 % leukocytes (test code = 707-0) [facility]ophils as percent of blood iknhdjfeyp0031-51-09 13:40:00 Test Item Value Reference Range Interpretation Comments eosinophils as percent of blood 2 % leukocytes (test code = 713-8) [facility] Healthmonocytes as percent of blood exsujoleog5194-77-99 13:40:00 Test Item Value Reference Range Interpretation Comments monocytes as percent of blood 8 % leukocytes (test code = 5905-5) [facility]lymphocytes as percent of blood sngyecqdzz5183-39-24 13:40:00 Test Item Value Reference Range Interpretation Comments lymphocytes as percent of blood 28 % leukocytes (test code = 736-9) [facility]rophils as percent of blood sdongdqhmx1087-88-12 13:40:00 Test Item Value Reference Range Interpretation Comments neutrophils as percent of blood 62 % leukocytes (test code = 770-8) [facility]hawplatelet ovdgg9293-12-01 13:40:00 Test Item Value Reference Range Interpretation Comments platelet count (test code = 254 X10E3/UL 150-450 777-3) [facility]red blood cell distribution urbpc5259-50-40 13:40:00 Test Item Value Reference Range Interpretation Comments red blood cell distribution width 13.5 % 11.7-15.4 (test code = 788-0) [facility] corpuscular hemoglobin concentration, [id number] 13:40:00 Test Item Value Reference Range Interpretation Comments mean corpuscular hemoglobin 30.2 G/DL 31.5-35.7 L concentration, RBC (test code = 786-4) [facility] corpuscular hemoglobin, [id number] 13:40:00 Test Item Value Reference Range Interpretation Comments mean corpuscular hemoglobin, RBC 25.7 pg 26.6-33.0 L (test code = 785-6) [facility] corpuscular volume, [id number] 13:40:00 Test Item Value Reference Range Interpretation Comments mean corpuscular volume, RBC (test code 85 fL 79-97 = 787-2) [facility]hematocrit, cnvaw3039-78-14 13:40:00 Test Item Value Reference Range Interpretation Comments hematocrit, blood (test code = 4544-3) 39.1 % 34.0-46.6 [facility]hemoglobin, havbd0962-35-13 13:40:00 Test Item Value Reference Range Interpretation Comments hemoglobin, blood (test code = 11.8 g/dL 11.1-15.9 718-7) [facility]hawerythrocyte (RBC) rwmqn0693-34-33 13:40:00 Test Item Value Reference Range Interpretation Comments erythrocyte (RBC) count (test 4.59 X10E6/UL 3.77-5.28 code = 789-8) [facility]leukocyte count, flely8614-43-46 13:40:00 Test Item Value Reference Range Interpretation Comments leukocyte count, blood (test 8.5 X10E3/UL 3.4-10.8 code = 6690-2) [facility]testosterone, serum, [id number] 12:08:00 Test Item Value Reference Range Interpretation Comments testosterone, serum, free (test 10.6 pg/mL code = 2991-8) [facility]testosterone, umiva3076-28-20 12:08:00 Test Item Value Reference Range Interpretation Comments testosterone, total (test code = 530 ng/dL 2986-8) [facility]hawLDL cholesterol, duvzk8238-85-45 12:08:00 Test Item Value Reference Range Interpretation Comments LDL cholesterol, serum (test code = 81 mg/dL 0-109 2088-1) [facility]very low density jstotvgdvlgr8353-08-35 12:08:00 Test Item Value Reference Range Interpretation Comments very low density lipoproteins (test 9 mg/dL 5-40 code = 2091-7) [facility]HDL cholesterol, iksex1612-88-79 12:08:00 Test Item Value Reference Range Interpretation Comments HDL cholesterol, serum (test code = 61 mg/dL >39 2084-9) [facility]triglyceride, serum, [id number] 12:08:00 Test Item Value Reference Range Interpretation Comments triglyceride, serum, fasting (test 45 mg/dL 0-89 code = 2571-8) [facility]cholesterol, lbjtl2995-54-53 12:08:00 Test Item Value Reference Range Interpretation Comments cholesterol, serum (test code = 151 mg/dL 042-793 5927-3) [facility]alanine aminotransferase (SGPT), zhjxn0544-48-80 12:08:00 Test Item Value Reference Range Interpretation Comments alanine aminotransferase (SGPT), serum 14 1/L 0-32 (test code = 1742-6) [facility]hawaspartate aminotransferase (SGOT), ujlsn0716-89-26 12:08:00 Test Item Value Reference Range Interpretation Comments aspartate aminotransferase (SGOT), 18 1/L 0-40 serum (test code = 1920-8) [facility]alkaline phosphatase, zffgi7324-14-58 12:08:00 Test Item Value Reference Range Interpretation Comments alkaline phosphatase, serum (test code 61 1/L 39-117 = 1783-0) [facility]bilirubin, serum, bysyl0610-05-70 12:08:00 Test Item Value Reference Range Interpretation Comments bilirubin, serum, total (test code 0.3 mg/dL 0.0-1.2 = 1974-2) [facility]albumin/globulin ratio, [id number] 12:08:00 Test Item Value Reference Range Interpretation Comments albumin/globulin ratio, 2.3 (unknown unit) 1.2-2.2 H serum (test code = 1759-0) [facility]hawglobulin, [id number] 12:08:00 Test Item Value Reference Range Interpretation Comments globulin, serum (test code 2.0 (unknown unit) 1.5-4.5 = 2336-6) [facility] Healthalbumin, knaas2573-18-34 12:08:00 Test Item Value Reference Range Interpretation Comments albumin, serum (test code = 1751-7) 4.6 g/dL 3.9-5.0 [facility] Healthprotein, total, ddkjt8118-13-79 12:08:00 Test Item Value Reference Range Interpretation Comments protein, total, serum (test code = 6.6 g/dL 6.0-8.5 2885-2) [facility]calcium, pnmil5712-53-25 12:08:00 Test Item Value Reference Range Interpretation Comments calcium, serum (test code = 2000-8) 9.4 mg/dL 8.7-10.2 [facility] dioxide, venous emypx9428-74-96 12:08:00 Test Item Value Reference Range Interpretation Comments carbon dioxide, venous blood (test 24 mmol/L 20-29 code = 2027-1) [facility]hawchloride, cmfqc0401-67-07 12:08:00 Test Item Value Reference Range Interpretation Comments chloride, serum (test code = 104 mmol/L 96-106 5-0) [facility]potassium, [id number] 12:08:00 Test Item Value Reference Range Interpretation Comments potassium, serum (test code = 4.5 mmol/L 3.5-5.2 2823-3) [facility]odium, ineqs9432-54-47 12:08:00 Test Item Value Reference Range Interpretation Comments sodium, serum (test code = 2951-2) 141 mmol/L 134-144 [facility] nitrogen/creatinine ratio, kgnml2698-86-17 12:08:00 Test Item Value Reference Range Interpretation Comments urea nitrogen/creatinine 11 (unknown unit) 9-23 ratio, serum (test code = 3097-3) [facility] HealtheGFR if Ibphcgvh1354-34-43 12:08:00 Test Item Value Reference Range Interpretation Comments eGFR if 112 mL/min/{1.73 m2} >59 (test code = 44528-1) [facility]Estimated Glomerular Filtration Rate (calc)2020-01-03 12:08:00 Test Item Value Reference Range Interpretation Comments Estimated Glomerular 97 mL/min/{1.73 m2} >59 Filtration Rate (calc) (test code = 74692-3) [facility]inine, iqmtu9779-56-78 12:08:00 Test Item Value Reference Range Interpretation Comments creatinine, serum (test code = 0.87 mg/dL 0.57-1.00 2160-0) [facility] nitrogen, [id number] 12:08:00 Test Item Value Reference Range Interpretation Comments urea nitrogen, blood (test code = 10 mg/dL 6-20 3094-0) [facility] glucose, dulhpn1716-53-81 12:08:00 Test Item Value Reference Range Interpretation Comments blood glucose, random (test code = 64 mg/dL 65-99 L 2339-0) [facility]immature granulocytes, percentage of total cells, blood 2020-01-03 12:08:00 Test Item Value Reference Range Interpretation Comments immature granulocytes, percentage of 0 % total cells, blood (test code = 07266-9) [facility]ophil count, aqrddguk7831-87-17 12:08:00 Test Item Value Reference Range Interpretation Comments basophil count, absolute (test 0.0 x10E3/uL 0.0-0.2 code = 07204-0) [facility]haw[facility]osinophil Absolute Nxtkj3677-98-62 12:08:00 Test Item Value Reference Range Interpretation Comments Eosinophil Absolute Count (test 0.1 X10E3/UL 0.0-0.4 code = 14539-0) [facility]monocyte count, blood, xkbefsnfh9782-57-69 12:08:00 Test Item Value Reference Range Interpretation Comments monocyte count, blood, automated 0.6 X10E3/UL 0.1-0.9 (test code = 742-7) [facility]lymph[facility] count, blood, jfbjhwqhy4106-91-84 12:08:00 Test Item Value Reference Range Interpretation Comments lymphocyte count, blood, 2.5 X10E3/UL 0.7-3.1 automated (test code = 731-0) [facility]Absolute Zlkimpkkpss7406-66-35 12:08:00 Test Item Value Reference Range Interpretation Comments Absolute Neutrophils (test code 3.4 X10E3/UL 1.4-7.0 = 69881-6) [facility] Healthbasophils as percent of blood sbdtxqkxms1209-21-21 12:08:00 Test Item Value Reference Range Interpretation Comments basophils as percent of blood 0 % leukocytes (test code = 707-0) [facility] as percent of blood nzzhksshok0434-24-62 12:08:00 Test Item Value Reference Range Interpretation Comments eosinophils as percent of blood 2 % leukocytes (test code = 713-8) [facility] Healthmonocytes as percent of blood yyblbgqqjj6939-31-55 12:08:00 Test Item Value Reference Range Interpretation Comments monocytes as percent of blood 8 % leukocytes (test code = 5905-5) [facility]lymph[facility] as percent of blood mbdwmweuvw4584-63-48 12:08:00 Test Item Value Reference Range Interpretation Comments lymphocytes as percent of blood 38 % leukocytes (test code = 736-9) [facility]hawneutrophils as percent of blood rcwgjbiplv4121-50-55 12:08:00 Test Item Value Reference Range Interpretation Comments neutrophils as percent of blood 52 % leukocytes (test code = 770-8) [facility]hawplatelet kmcci6314-90-17 12:08:00 Test Item Value Reference Range Interpretation Comments platelet count (test code = 234 X10E3/UL 150-450 777-3) [facility]red blood cell distribution bjqnx6474-84-95 12:08:00 Test Item Value Reference Range Interpretation Comments red blood cell distribution width 12.6 % 11.7-15.4 (test code = 788-0) [facility] corpuscular hemoglobin concentration, [id number] 12:08:00 Test Item Value Reference Range Interpretation Comments mean corpuscular hemoglobin 31.7 G/DL 31.5-35.7 concentration, RBC (test code = 786-4) [facility] corpuscular hemoglobin, [id number] 12:08:00 Test Item Value Reference Range Interpretation Comments mean corpuscular hemoglobin, RBC 27.3 pg 26.6-33.0 (test code = 785-6) [facility] corpuscular volume, [id number] 12:08:00 Test Item Value Reference Range Interpretation Comments mean corpuscular volume, RBC (test code 86 fL 79-97 = 787-2) [facility]ocrit, znygr1189-51-35 12:08:00 Test Item Value Reference Range Interpretation Comments hematocrit, blood (test code = 4544-3) 37.5 % 34.0-46.6 [facility], wzvqc7771-73-82 12:08:00 Test Item Value Reference Range Interpretation Comments hemoglobin, blood (test code = 11.9 g/dL 11.1-15.9 718-7) [facility]hawerythrocyte (RBC) rqozl3228-16-78 12:08:00 Test Item Value Reference Range Interpretation Comments erythrocyte (RBC) count (test 4.36 X10E6/UL 3.77-5.28 code = 789-8) [facility]leukocyte count, [id number] 12:08:00 Test Item Value Reference Range Interpretation Comments leukocyte count, blood (test 6.6 X10E3/UL 3.4-10.8 code = 6690-2) [facility]testosterone, serum, rxah7432-44-31 11:59:00 Test Item Value Reference Range Interpretation Comments testosterone, serum, free (test 7.2 pg/mL code = 2991-8) [facility]testosterone, lkpyh1404-99-99 11:59:00 Test Item Value Reference Range Interpretation Comments testosterone, total (test code = 458 ng/dL 2986-8) [facility]hawLDL cholesterol, [id number] 11:59:00 Test Item Value Reference Range Interpretation Comments LDL cholesterol, serum (test code = 58 mg/dL 0-109 2088-1) [facility] low density mvnijjkjcuak7746-41-15 11:59:00 Test Item Value Reference Range Interpretation Comments very low density lipoproteins (test 7 mg/dL 5-40 code = 1-7) [facility]HDL cholesterol, rfjex4344-96-90 11:59:00 Test Item Value Reference Range Interpretation Comments HDL cholesterol, serum (test code = 58 mg/dL >39 5-9) [facility]triglyceride, serum, melccds3173-77-31 11:59:00 Test Item Value Reference Range Interpretation Comments triglyceride, serum, fasting (test 35 mg/dL 0-89 code = 2571-8) [facility]cholesterol, ttvzf2023-32-55 11:59:00 Test Item Value Reference Range Interpretation Comments cholesterol, serum (test code = 123 mg/dL 855-753 0923-3) [facility] aminotransferase (SGPT), kojrw8015-52-67 11:59:00 Test Item Value Reference Range Interpretation Comments alanine aminotransferase (SGPT), serum 9 1/L 0-32 (test code = 1742-6) [facility]haw[facility]partate aminotransferase (SGOT), nigyt4387-49-43 11:59:00 Test Item Value Reference Range Interpretation Comments aspartate aminotransferase (SGOT), 18 1/L 0-40 serum (test code = 1920-8) [facility]alkaline phosphatase, pyfpm9785-59-47 11:59:00 Test Item Value Reference Range Interpretation Comments alkaline phosphatase, serum (test code 62 1/L 39-117 = 1783-0) [facility]irubin, serum, [id number] 11:59:00 Test Item Value Reference Range Interpretation Comments bilirubin, serum, total (test code 0.2 mg/dL 0.0-1.2 = 1975-2) [facility]albumin/globulin ratio, untps1039-08-70 11:59:00 Test Item Value Reference Range Interpretation Comments albumin/globulin ratio, 2.0 (unknown unit) 1.2-2.2 serum (test code = 1759-0) [facility] Healthglobulin, [id number] 11:59:00 Test Item Value Reference Range Interpretation Comments globulin, serum (test code 2.2 (unknown unit) 1.5-4.5 = 2336-6) [facility] Healthalbumin, gdyny3813-62-07 11:59:00 Test Item Value Reference Range Interpretation Comments albumin, serum (test code = 1751-7) 4.5 g/dL 3.9-5.0 [facility]protein, total, edxjg1277-57-81 11:59:00 Test Item Value Reference Range Interpretation Comments protein, total, serum (test code = 6.7 g/dL 6.0-8.5 2885-2) [facility]calcium, xatkx9127-39-68 11:59:00 Test Item Value Reference Range Interpretation Comments calcium, serum (test code = 1999-8) 9.6 mg/dL 8.7-10.2 [facility] dioxide, venous jxrzy0136-62-78 11:59:00 Test Item Value Reference Range Interpretation Comments carbon dioxide, venous blood (test 22 mmol/L 20-29 code = 2027-1) [facility] Healthchloride, agbnd6821-77-70 11:59:00 Test Item Value Reference Range Interpretation Comments chloride, serum (test code = 105 mmol/L 96-106 5-0) [facility]assium, zrskd4157-19-03 11:59:00 Test Item Value Reference Range Interpretation Comments potassium, serum (test code = 4.3 mmol/L 3.5-5.2 2823-3) [facility]odium, njtsr6312-90-64 11:59:00 Test Item Value Reference Range Interpretation Comments sodium, serum (test code = 2951-2) 141 mmol/L 134-144 [facility] nitrogen/creatinine ratio, pvyoy0727-52-05 11:59:00 Test Item Value Reference Range Interpretation Comments urea nitrogen/creatinine 6 (unknown unit) 9-23 L ratio, serum (test code = 3097-3) [facility] HealtheGFR if Cluezxzp4891-27-97 11:59:00 Test Item Value Reference Range Interpretation Comments eGFR if 124 mL/min/{1.73 m2} >59 (test code = 03221-8) [facility]hawEstimated Glomerular Filtration Rate (calc)2019-11-22 11:59:00 Test Item Value Reference Range Interpretation Comments Estimated Glomerular 107 mL/min/{1.73 m2} >59 Filtration Rate (calc) (test code = 06503-2) [facility]creatinine, puhuz6640-05-35 11:59:00 Test Item Value Reference Range Interpretation Comments creatinine, serum (test code = 0.80 mg/dL 0.57-1.00 2160-0) [facility] nitrogen, dyvxq5780-35-97 11:59:00 Test Item Value Reference Range Interpretation Comments urea nitrogen, blood (test code = 5 mg/dL 6-20 L 3094-0) [facility] glucose, txwsnu0062-67-13 11:59:00 Test Item Value Reference Range Interpretation Comments blood glucose, random (test code = 91 mg/dL 65-99 2339-0) [facility]hawimmature granulocytes, percentage of total cells, blood 2019-11-22 11:59:00 Test Item Value Reference Range Interpretation Comments immature granulocytes, percentage of 0 % total cells, blood (test code = 30226-2) [facility] Healthbasophil count, ekvxbipn9191-42-17 11:59:00 Test Item Value Reference Range Interpretation Comments basophil count, absolute (test 0.0 x10E3/uL 0.0-0.2 code = 48166-8) [facility] HealthEosinophil Absolute Coooq2717-42-68 11:59:00 Test Item Value Reference Range Interpretation Comments Eosinophil Absolute Count (test 0.2 X10E3/UL 0.0-0.4 code = 91946-3) [facility] count, blood, rjjwbrgql0632-13-85 11:59:00 Test Item Value Reference Range Interpretation Comments monocyte count, blood, automated 0.7 X10E3/UL 0.1-0.9 (test code = 742-7) [facility]lymph[facility] count, blood, frbofbutl1209-16-17 11:59:00 Test Item Value Reference Range Interpretation Comments lymphocyte count, blood, 2.8 X10E3/UL 0.7-3.1 automated (test code = 731-0) [facility]Absolute Cbjofqvzjwv1847-28-83 11:59:00 Test Item Value Reference Range Interpretation Comments Absolute Neutrophils (test code 4.1 X10E3/UL 1.4-7.0 = 97295-0) [facility]ophils as percent of blood ygyexdfyzy4215-17-63 11:59:00 Test Item Value Reference Range Interpretation Comments basophils as percent of blood 0 % leukocytes (test code = 707-0) [facility] Healtheosinophils as percent of blood kstgcjxweb2254-37-43 11:59:00 Test Item Value Reference Range Interpretation Comments eosinophils as percent of blood 3 % leukocytes (test code = 713-8) [facility] Healthmonocytes as percent of blood jmgfrpjgfp0858-18-18 11:59:00 Test Item Value Reference Range Interpretation Comments monocytes as percent of blood 9 % leukocytes (test code = 5905-5) [facility] as percent of blood gifvsszcms8019-26-11 11:59:00 Test Item Value Reference Range Interpretation Comments lymphocytes as percent of blood 36 % leukocytes (test code = 736-9) [facility]hawneutrophils as percent of blood orbgijncrt3028-70-92 11:59:00 Test Item Value Reference Range Interpretation Comments neutrophils as percent of blood 52 % leukocytes (test code = 770-8) [facility]hawplatelet xcuxi7437-95-69 11:59:00 Test Item Value Reference Range Interpretation Comments platelet count (test code = 245 X10E3/UL 150-450 777-3) [facility] blood cell distribution jokso5333-28-78 11:59:00 Test Item Value Reference Range Interpretation Comments red blood cell distribution width 13.3 % 11.7-15.4 (test code = 788-0) [facility] corpuscular hemoglobin concentration, [id number] 11:59:00 Test Item Value Reference Range Interpretation Comments mean corpuscular hemoglobin 32.8 G/DL 31.5-35.7 concentration, RBC (test code = 786-4) [facility] corpuscular hemoglobin, [id number] 11:59:00 Test Item Value Reference Range Interpretation Comments mean corpuscular hemoglobin, RBC 28.0 pg 26.6-33.0 (test code = 785-6) [facility] corpuscular volume, [id number] 11:59:00 Test Item Value Reference Range Interpretation Comments mean corpuscular volume, RBC (test code 85 fL 79-97 = 787-2) [facility]hematocrit, chnvj7786-29-90 11:59:00 Test Item Value Reference Range Interpretation Comments hematocrit, blood (test code = 4544-3) 36.9 % 34.0-46.6 [facility]oglobin, dtdvx8611-36-47 11:59:00 Test Item Value Reference Range Interpretation Comments hemoglobin, blood (test code = 12.1 g/dL 11.1-15.9 718-7) [facility]hawerythrocyte (RBC) twcoi2989-87-56 11:59:00 Test Item Value Reference Range Interpretation Comments erythrocyte (RBC) count (test 4.32 X10E6/UL 3.77-5.28 code = 789-8) [facility]leukocyte count, pvpxh0797-15-07 11:59:00 Test Item Value Reference Range Interpretation Comments leukocyte count, blood (test 7.9 X10E3/UL 3.4-10.8 code = 6690-2) [facility]hawtestosterone, serum, adhi4395-28-82 12:06:00 Test Item Value Reference Range Interpretation Comments testosterone, serum, free (test 6.5 pg/mL code = 2991-8) [facility]hawtestosterone, jyejf1667-28-44 12:06:00 Test Item Value Reference Range Interpretation Comments testosterone, total (test code = 398 ng/dL 2986-8) [facility]hawLDL cholesterol, mzmql2498-81-46 12:06:00 Test Item Value Reference Range Interpretation Comments LDL cholesterol, serum (test code = 88 mg/dL 0-109 2088-1) [facility] low density fgfwxnpevogn1768-20-15 12:06:00 Test Item Value Reference Range Interpretation Comments very low density lipoproteins (test 10 mg/dL 5-40 code = 1-7) [facility]hawHDL cholesterol, hpcnv1740-31-62 12:06:00 Test Item Value Reference Range Interpretation Comments HDL cholesterol, serum (test code = 72 mg/dL >39 2084-9) [facility]hawtriglyceride, serum, uuiauea0534-39-63 12:06:00 Test Item Value Reference Range Interpretation Comments triglyceride, serum, fasting (test 51 mg/dL 0-89 code = 2571-8) [facility]cholesterol, wfflr7453-16-86 12:06:00 Test Item Value Reference Range Interpretation Comments cholesterol, serum (test code = 170 mg/dL 100-169 H 3-3) [facility] [id number] 12:06:00 Test Item Value Reference Range Interpretation Comments alanine aminotransferase (SGPT), serum 10 1/L 0-32 (test code = 1742-6) [facility]ate aminotransferase (SGOT), [id number] 12:06:00 Test Item Value Reference Range Interpretation Comments aspartate aminotransferase (SGOT), 16 1/L 0-40 serum (test code = 1920-8) [facility] phosphatase, [id number] 12:06:00 Test Item Value Reference Range Interpretation Comments alkaline phosphatase, serum (test code 59 1/L 39-117 = 1783-0) [facility], serum, [id number] 12:06:00 Test Item Value Reference Range Interpretation Comments bilirubin, serum, total (test code <0.2 mg/dL 0.0-1.2 = 1975-2) [facility] Healthalbumin/globulin ratio, [id number] 12:06:00 Test Item Value Reference Range Interpretation Comments albumin/globulin ratio, 2.0 (unknown unit) 1.2-2.2 serum (test code = 1759-0) [facility] Healthglobulin, [id number] 12:06:00 Test Item Value Reference Range Interpretation Comments globulin, serum (test code 2.4 (unknown unit) 1.5-4.5 = 2336-6) [facility] Healthalbumin, [id number] 12:06:00 Test Item Value Reference Range Interpretation Comments albumin, serum (test code = 1751-7) 4.8 g/dL 3.5-5.5 [facility], total, [id number] 12:06:00 Test Item Value Reference Range Interpretation Comments protein, total, serum (test code = 7.2 g/dL 6.0-8.5 2885-2) [facility]ium, [id number] 12:06:00 Test Item Value Reference Range Interpretation Comments calcium, serum (test code = 1999-8) 9.9 mg/dL 8.7-10.2 [facility], venous [id number] 12:06:00 Test Item Value Reference Range Interpretation Comments carbon dioxide, venous blood (test 25 mmol/L 20-29 code = 2027-1) [facility]ide, [id number] 12:06:00 Test Item Value Reference Range Interpretation Comments chloride, serum (test code = 102 mmol/L 96-106 2075-0) [facility] Healthpotassium, icebi4076-13-58 12:06:00 Test Item Value Reference Range Interpretation Comments potassium, serum (test code = 4.9 mmol/L 3.5-5.2 2823-3) [facility]odium, [id number] 12:06:00 Test Item Value Reference Range Interpretation Comments sodium, serum (test code = 2951-2) 141 mmol/L 134-144 [facility] nitrogen/creatinine ratio, saegp5615-56-96 12:06:00 Test Item Value Reference Range Interpretation Comments urea nitrogen/creatinine 12 (unknown unit) 9-23 ratio, serum (test code = 3097-3) [facility] HealtheGFR if Rdrcpseo4376-78-89 12:06:00 Test Item Value Reference Range Interpretation Comments eGFR if 136 mL/min/{1.73 m2} >59 (test code = 50310-5) [facility]ated Glomerular Filtration Rate (calc)2019-10-18 12:06:00 Test Item Value Reference Range Interpretation Comments Estimated Glomerular 118 mL/min/{1.73 m2} >59 Filtration Rate (calc) (test code = 21641-3) [facility]inine, [id number] 12:06:00 Test Item Value Reference Range Interpretation Comments creatinine, serum (test code = 0.74 mg/dL 0.57-1.00 2160-0) [facility] nitrogen, [id number] 12:06:00 Test Item Value Reference Range Interpretation Comments urea nitrogen, blood (test code = 9 mg/dL 6-20 3094-0) [facility] glucose, [id number] 12:06:00 Test Item Value Reference Range Interpretation Comments blood glucose, random (test code = 90 mg/dL 65-99 2339-0) [facility]ature granulocytes, percentage of total cells, blood 2019-10-18 12:06:00 Test Item Value Reference Range Interpretation Comments immature granulocytes, percentage of 0 % total cells, blood (test code = 50675-8) [facility]ophil count, [id number] 12:06:00 Test Item Value Reference Range Interpretation Comments basophil count, absolute (test 0.0 x10E3/uL 0.0-0.2 code = 25002-4) [facility] HealthEosinophil Absolute [id number] 12:06:00 Test Item Value Reference Range Interpretation Comments Eosinophil Absolute Count (test 0.3 X10E3/UL 0.0-0.4 code = 29622-7) [facility] Healthmonocyte count, blood, jocqegkye2914-04-19 12:06:00 Test Item Value Reference Range Interpretation Comments monocyte count, blood, automated 0.9 X10E3/UL 0.1-0.9 (test code = 742-7) [facility] Healthlymphocyte count, blood, [id number] 12:06:00 Test Item Value Reference Range Interpretation Comments lymphocyte count, blood, 2.8 X10E3/UL 0.7-3.1 automated (test code = 731-0) [facility] HealthAbsolute Tvkakkmuudd7293-80-49 12:06:00 Test Item Value Reference Range Interpretation Comments Absolute Neutrophils (test code 5.7 X10E3/UL 1.4-7.0 = 25268-7) [facility] Healthbasophils as percent of blood rviwktvwwh5174-54-59 12:06:00 Test Item Value Reference Range Interpretation Comments basophils as percent of blood 0 % leukocytes (test code = 707-0) [facility] Healtheosinophils as percent of blood kdtpxbvpck6467-00-62 12:06:00 Test Item Value Reference Range Interpretation Comments eosinophils as percent of blood 3 % leukocytes (test code = 713-8) [facility] Healthmonocytes as percent of blood ucbnnvydgf8524-09-51 12:06:00 Test Item Value Reference Range Interpretation Comments monocytes as percent of blood 9 % leukocytes (test code = 5905-5) [facility] Healthlymphocytes as percent of blood zukolrcatc6391-06-49 12:06:00 Test Item Value Reference Range Interpretation Comments lymphocytes as percent of blood 28 % leukocytes (test code = 736-9) [facility] Healthneutrophils as percent of blood mokpyxfvdf9274-45-70 12:06:00 Test Item Value Reference Range Interpretation Comments neutrophils as percent of blood 60 % leukocytes (test code = 770-8) [facility] Healthplatelet [id number] 12:06:00 Test Item Value Reference Range Interpretation Comments platelet count (test code = 243 X10E3/UL 150-450 777-3) [facility] blood cell distribution ckbcj7754-22-41 12:06:00 Test Item Value Reference Range Interpretation Comments red blood cell distribution width 13.9 % 11.7-15.4 (test code = 788-0) [facility] corpuscular hemoglobin concentration, [id number] 12:06:00 Test Item Value Reference Range Interpretation Comments mean corpuscular hemoglobin 33.5 G/DL 31.5-35.7 concentration, RBC (test code = 786-4) [facility] [id number] 12:06:00 Test Item Value Reference Range Interpretation Comments mean corpuscular hemoglobin, RBC 28.5 pg 26.6-33.0 (test code = 785-6) [facility] corpuscular volume, [id number] 12:06:00 Test Item Value Reference Range Interpretation Comments mean corpuscular volume, RBC (test code 85 fL 79-97 = 787-2) [facility]ocrit, [id number] 12:06:00 Test Item Value Reference Range Interpretation Comments hematocrit, blood (test code = 4544-3) 37.3 % 34.0-46.6 [facility]hemoglobin, [id number] 12:06:00 Test Item Value Reference Range Interpretation Comments hemoglobin, blood (test code = 12.5 g/dL 11.1-15.9 718-7) [facility]erythrocyte (RBC) gjruu1264-88-79 12:06:00 Test Item Value Reference Range Interpretation Comments erythrocyte (RBC) count (test 4.38 X10E6/UL 3.77-5.28 code = 789-8) [facility]leukocyte count, [id number] 12:06:00 Test Item Value Reference Range Interpretation Comments leukocyte count, blood (test 9.7 X10E3/UL 3.4-10.8 code = 6690-2) [facility]vitamin D 25-hydroxy, zwxyq4481-15-03 11:16:00 Test Item Value Reference Range Interpretation Comments vitamin D 25-hydroxy, serum (test 26.5 ng/mL 30.0-100.0 L code = 24430-0) [facility]hawrapid plasma reagin antibody, cjaiu6360-29-29 11:16:00 Test Item Value Reference Range Interpretation Comments rapid plasma reagin antibody, Non Reactive Non Reactive serum (test code = 5291-0) [facility]prolactin, [id number] 11:16:00 Test Item Value Reference Range Interpretation Comments prolactin, serum (test code = 9.2 ng/mL 4.8-23.3 2842-3) [facility]hemoglobin A1C, blood, as % of total bmibkcblpw3179-69-45 11:16:00 Test Item Value Reference Range Interpretation Comments hemoglobin A1C, blood, as % of total 5.5 % 4.8-5.6 hemoglobin (test code = 4548-4) [facility]testosterone, serum, [id number] 11:16:00 Test Item Value Reference Range Interpretation Comments testosterone, serum, free (test 2.3 pg/mL code = 2991-8) [facility]testosterone, [id number] 11:16:00 Test Item Value Reference Range Interpretation Comments testosterone, total (test code = 53 ng/dL 2986-8) [facility]LDL cholesterol, [id number] 11:16:00 Test Item Value Reference Range Interpretation Comments LDL cholesterol, serum (test code = 84 mg/dL 0-109 9-1) [facility]very low density noflhpclbcvu4442-66-01 11:16:00 Test Item Value Reference Range Interpretation Comments very low density lipoproteins (test 6 mg/dL 5-40 code = 2091-7) [facility]HDL cholesterol, [id number] 11:16:00 Test Item Value Reference Range Interpretation Comments HDL cholesterol, serum (test code = 90 mg/dL >39 5-9) [facility]lyceride, serum, [id number] 11:16:00 Test Item Value Reference Range Interpretation Comments triglyceride, serum, fasting (test 32 mg/dL 0-89 code = 2571-8) [facility]olesterol, [id number] 11:16:00 Test Item Value Reference Range Interpretation Comments cholesterol, serum (test code = 180 mg/dL 100-169 H 2093-3) [facility] Healthalanine aminotransferase (SGPT), [id number] 11:16:00 Test Item Value Reference Range Interpretation Comments alanine aminotransferase (SGPT), serum 10 1/L 0-32 (test code = 1742-6) [facility]ate aminotransferase (SGOT), [id number] 11:16:00 Test Item Value Reference Range Interpretation Comments aspartate aminotransferase (SGOT), 23 1/L 0-40 serum (test code = 1920-8) [facility] phosphatase, [id number] 11:16:00 Test Item Value Reference Range Interpretation Comments alkaline phosphatase, serum (test code 68 1/L 39-117 = 1783-0) [facility]irubin, serum, [id number] 11:16:00 Test Item Value Reference Range Interpretation Comments bilirubin, serum, total (test code 0.3 mg/dL 0.0-1.2 = 1975-2) [facility] Healthalbumin/globulin ratio, jjjyv3020-28-56 11:16:00 Test Item Value Reference Range Interpretation Comments albumin/globulin ratio, 2.2 (unknown unit) 1.2-2.2 serum (test code = 1759-0) [facility] Healthglobulin, [id number] 11:16:00 Test Item Value Reference Range Interpretation Comments globulin, serum (test code 2.4 (unknown unit) 1.5-4.5 = 2336-6) [facility] Healthalbumin, [id number] 11:16:00 Test Item Value Reference Range Interpretation Comments albumin, serum (test code = 1751-7) 5.2 g/dL 3.5-5.5 [facility], total, [id number] 11:16:00 Test Item Value Reference Range Interpretation Comments protein, total, serum (test code = 7.6 g/dL 6.0-8.5 2885-2) [facility]calcium, [id number] 11:16:00 Test Item Value Reference Range Interpretation Comments calcium, serum (test code = 1999-8) 9.8 mg/dL 8.7-10.2 [facility] dioxide, venous [id number] 11:16:00 Test Item Value Reference Range Interpretation Comments carbon dioxide, venous blood (test 23 mmol/L code = 7-1) [facility]chloride, [id number] 11:16:00 Test Item Value Reference Range Interpretation Comments chloride, serum (test code = 100 mmol/L 96-106 2075-0) [facility] Healthpotassium, [id number] 11:16:00 Test Item Value Reference Range Interpretation Comments potassium, serum (test code = 4.3 mmol/L 3.5-5.2 2823-3) [facility]odium, [id number] 11:16:00 Test Item Value Reference Range Interpretation Comments sodium, serum (test code = 2951-2) 140 mmol/L 134-144 [facility] nitrogen/creatinine ratio, [id number] 11:16:00 Test Item Value Reference Range Interpretation Comments urea nitrogen/creatinine 14 (unknown unit) 9-23 ratio, serum (test code = 3097-3) [facility] HealtheGFR if Vozaqxbt6834-29-95 11:16:00 Test Item Value Reference Range Interpretation Comments eGFR if 145 mL/min/{1.73 m2} >59 (test code = 46164-6) [facility]Estimated Glomerular Filtration Rate (calc)2019-08-23 11:16:00 Test Item Value Reference Range Interpretation Comments Estimated Glomerular 126 mL/min/{1.73 m2} >59 Filtration Rate (calc) (test code = 01549-1) [facility]inine, [id number] 11:16:00 Test Item Value Reference Range Interpretation Comments creatinine, serum (test code = 0.70 mg/dL 0.57-1.00 2160-0) [facility] nitrogen, [id number] 11:16:00 Test Item Value Reference Range Interpretation Comments urea nitrogen, blood (test code = 10 mg/dL 6-20 3094-0) [facility] glucose, [id number] 11:16:00 Test Item Value Reference Range Interpretation Comments blood glucose, random (test code = 85 mg/dL 65-99 2339-0) [facility]immature granulocytes, percentage of total cells, blood 2019-08-23 11:16:00 Test Item Value Reference Range Interpretation Comments immature granulocytes, percentage of 0 % total cells, blood (test code = 77805-7) [facility] Healthbasophil count, thnfjhyq2107-09-89 11:16:00 Test Item Value Reference Range Interpretation Comments basophil count, absolute (test 0.0 x10E3/uL 0.0-0.2 code = 19263-5) [facility] HealthEosinophil Absolute [id number] 11:16:00 Test Item Value Reference Range Interpretation Comments Eosinophil Absolute Count (test 0.1 X10E3/UL 0.0-0.4 code = 44576-3) [facility] count, blood, uqiyewzaz4141-52-24 11:16:00 Test Item Value Reference Range Interpretation Comments monocyte count, blood, automated 0.5 X10E3/UL 0.1-0.9 (test code = 742-7) [facility] count, blood, asefthuoy4319-59-83 11:16:00 Test Item Value Reference Range Interpretation Comments lymphocyte count, blood, 2.3 X10E3/UL 0.7-3.1 automated (test code = 731-0) [facility]Absolute Atiajogdkpd4292-30-88 11:16:00 Test Item Value Reference Range Interpretation Comments Absolute Neutrophils (test code 4.6 X10E3/UL 1.4-7.0 = 12603-5) [facility]ophils as percent of blood ioisrorqyf8655-02-40 11:16:00 Test Item Value Reference Range Interpretation Comments basophils as percent of blood 0 % leukocytes (test code = 707-0) [facility] Healtheosinophils as percent of blood rzlfwblbei8052-36-87 11:16:00 Test Item Value Reference Range Interpretation Comments eosinophils as percent of blood 1 % leukocytes (test code = 713-8) [facility] Healthmonocytes as percent of blood qscgotidsw1941-64-39 11:16:00 Test Item Value Reference Range Interpretation Comments monocytes as percent of blood 7 % leukocytes (test code = 5905-5) [facility] as percent of blood bvswmooqtq1269-67-27 11:16:00 Test Item Value Reference Range Interpretation Comments lymphocytes as percent of blood 31 % leukocytes (test code = 736-9) [facility]rophils as percent of blood ftgdjvwket4137-37-95 11:16:00 Test Item Value Reference Range Interpretation Comments neutrophils as percent of blood 61 % leukocytes (test code = 770-8) [facility]hawplatelet nszmy6565-19-61 11:16:00 Test Item Value Reference Range Interpretation Comments platelet count (test code = 224 X10E3/UL 150-450 777-3) [facility]red blood cell distribution rmcfx3103-49-76 11:16:00 Test Item Value Reference Range Interpretation Comments red blood cell distribution width 13.7 % 12.3-15.4 (test code = 788-0) [facility] corpuscular hemoglobin concentration, [id number] 11:16:00 Test Item Value Reference Range Interpretation Comments mean corpuscular hemoglobin 33.0 G/DL 31.5-35.7 concentration, RBC (test code = 786-4) [facility] corpuscular hemoglobin, [id number] 11:16:00 Test Item Value Reference Range Interpretation Comments mean corpuscular hemoglobin, RBC 28.2 pg 26.6-33.0 (test code = 785-6) [facility] corpuscular volume, [id number] 11:16:00 Test Item Value Reference Range Interpretation Comments mean corpuscular volume, RBC (test code 86 fL 79-97 = 787-2) [facility]ocrit, [id number] 11:16:00 Test Item Value Reference Range Interpretation Comments hematocrit, blood (test code = 4544-3) 40.9 % 34.0-46.6 [facility]hemoglobin, lzrrh8303-08-06 11:16:00 Test Item Value Reference Range Interpretation Comments hemoglobin, blood (test code = 13.5 g/dL 11.1-15.9 718-7) [facility]hawerythrocyte (RBC) spyym8604-17-89 11:16:00 Test Item Value Reference Range Interpretation Comments erythrocyte (RBC) count (test 4.78 X10E6/UL 3.77-5.28 code = 789-8) [facility]leukocyte count, [id number] 11:16:00 Test Item Value Reference Range Interpretation Comments leukocyte count, blood (test 7.6 X10E3/UL 3.4-10.8 code = 6690-2) [facility]thyroxine, serum, [id number] 11:16:00 Test Item Value Reference Range Interpretation Comments thyroxine, serum, free (test code 1.28 ng/dL 0.93-1.60 = 3024-7) [facility]thyroid stimulating hormone, lyqzf1217-02-16 11:16:00 Test Item Value Reference Range Interpretation Comments thyroid stimulating hormone, 1.810 u[IU]/mL 0.450-4.500 serum (test code = 3016-3) [facility]pat[facility] C antibody, tsjpw7098-75-75 11:16:00 Test Item Value Reference Range Interpretation Comments hepatitis C antibody, serum (test code <0.1 0.0-0.9 = 5199-5) [facility], [id number] 11:16:00 Test Item Value Reference Range Interpretation Comments hepatitis A antibody, total (test Positive Negative A code = 75) [facility]hawHIV-CMIA (Chemiluminescent Microparticle Immuno Assay) 2019-08-23 11:16:00 Test Item Value Reference Range Interpretation Comments HIV-CMIA (Chemiluminescent Non Reactive Non Reactive Microparticle Immuno Assay) (test code = 601632) [facility]estradiol, [id number] 11:16:00 Test Item Value Reference Range Interpretation Comments estradiol, serum (test code = 286) 46.3 pg/mL [facility] surface muqfzfyy0599-34-06 11:16:00 Test Item Value Reference Range Interpretation Comments hepatitis B surface antibody (test Reactive code = 78) [facility] core antibody, [id number] 11:16:00 Test Item Value Reference Range Interpretation Comments hepatitis B core antibody, total Negative Negative (test code = 77) [facility] surface wyfqmit2688-77-69 11:16:00 Test Item Value Reference Range Interpretation Comments hepatitis B surface antigen (test Negative Negative code = 79) [facility]Ne[facility] gon[facility]rho[facility]ae DNA [id number] 11:11:00 Test Item Value Reference Range Interpretation Comments Neisseria gonorrhoeae DNA probe Negative Negative (test code = 18151-2) [facility] DNA [id number] 11:11:00 Test Item Value Reference Range Interpretation Comments chlamydia DNA probe (test code = Negative Negative 07630-5) [facility]XR CHEST 1 VIEW PORTABLE 2018-09-11 02:30:46XR CHEST 1 VIEW PORTABLE *WW*Location:[address] services provided 09/11/2018 2:30 AMIndication:s/p mvcComparison:Not availableFindings:The lungs are equally and symmetrically inflated. The trachea ismidline. The cardiac silhouette is normal in size. No acute bony abnormality.Impression:No acute cardiopulmonary disease. XR HIP RIGHT UNILATERAL 2 VIEWS2018-09-11 02:30:14XR HIP RIGHT UNILATERAL [address] VIEWSL[address] services ynxhsioq94/2/2018 2:29 AMIndication:s/p mvc with painComparison:Not availableFindings:No acute fracture or dislocation. Joint spaces are preserved. Bonymineralization appears normal. The soft tissues are radiographically normal.Impression:No acute bony abnormality.XR SPINE CERVICAL COMPLETE2018-09-11 02:29:43XR SPINE CERVICAL COMPLETE*WW*Location:[address] services provided 09/11/2018 2:29 AMIndication:s/p mvc with painComparison:Not availableFindings:Normal cervical lordosis and vertebral body alignment. Intervertebraldisc spaces and vertebral body heights appear normal. The facets and spinousprocesses appear well aligned. The odontoid and lateral masses of C1 aresymmetric.Impression:No acute bony abn ormality of the cervical spine.XR SPINE LUMBAR COMPLETE2018-09-11 02:28:58XR SPINE LUMBAR COMPLETELocation:[address] services /2/2018 2:28 AMIndication:TraumaComparison:Not availableFindings:Normal lumbar lordosis and vertebral body alignment is maintained.Intervertebral disc spaces and vertebral body heights appear normal. The facetsand spinous processes appear well aligned.Impression:No acute bony abnormality.DRUGS OF ABUSE *WW*2018-09-11 02:21:00 Test Item Value Reference Range Interpretation Comments DRUG SCRN (test code URINE DRUG SCREEN = HDOA) This is an unconfirmed screening result and should not be used for non-medical purposes CANNABINOD (test code POSITIVE NEGATIVE A = 88C) AMPHETAMINE (test Negative NEGATIVE code = 84A) BENZODIAZP (test code Negative NEGATIVE = 86A) BARBITURAT (test code Negative NEGATIVE = 85A) OPIATES (test code = Negative NEGATIVE 92B) COCAINE (test code = Negative NEGATIVE 87A) PHENCYCLID (test code Negative NEGATIVE = 66A) METHADONE (test code Negative NEGATIVE = 64A) DOAH (test code = DOAH.) *URINE DRUG SCREEN Cut-off values are as follows: Cannabinoids 50 ng/mL Cocaine 300 ng/mL Amphetamines 1000 ng/mL Phencyclidine 25 ng/mL Benzodiazepines 200 ng.mL Methadone 300 ng/mL Barbiturates 200 ng/mL Opiates 2000 ng/mL URINALYSIS WITH MICRO *WW*2018-09-11 02:15:00 Test Item Value Reference Range Interpretation Comments COLOR (test code = COLU) STRAW YELLOW A CLARITY (test code = CLA) CLEAR CLEAR GLUCOSE UR (test code = UA NEGATIVE NEGATIVE GLUCOSE) BILI UR (test code = BILE) NEGATIVE NEGATIVE KETONES UR (test code = CHAPIS) NEGATIVE NEGATIVE SP GRAVITY (test code = SPGR) 1.020 1.005-1.030 PH UR (test code = PH) 7.5 4.5-8.0 PROTEIN UR (test code = PU) NEGATIVE NEGATIVE UROBIL UR (test code = UROQ) 0.2 EU/dL 0.2-1.0 NITRITE UR (test code = NEGATIVE NEGATIVE NITRITE) BLOOD UR (test code = UA BLOOD) NEGATIVE NEGATIVE LEUK ES UR (test code = LEUK) 1+ NEGATIVE A WBC UR (test code = UWBC) 6 /HPF 0-5 H RBC UR (test code = URBC) 0 /HPF 0-2 EPITH UR (test code = UEPC) FEW /LPF FEW BACTERIA UR (test code = UBACT) MODERATE /HPF NONE A CAST UR (test code = CAST) /LPF NONE CRYSTAL UR (test code = CRYU) / LPF NONE MUCUS UR (test code = MUC) FEW / HPF NONE A AMORPH UR (test code = PONCE) / HPF NONE TRICH UR (test code = UTRICH) /HPF NONE YEAST UR (test code = UY) /HPF NONE SPERM UR (test code = USPERM) /HPF NONE URINE MONOCLONAL *WW*2018-09-11 02:12:00 Test Item Value Reference Range Interpretation Comments PREG UR (test code = PGU) NEGATIVE NEGATIVE
[2021-10-16] MEDS ORDERED: NA CHLORIDE 0.9% 1,000 ML ONE (20:29)
[2021-10-16] MEDS ORDERED: ONDANSETRON 4 MG/2 ML VIAL ONE (20:29)
[2021-10-16] MEDS ORDERED: FAMOTIDINE 20 MG/2 ML VIAL IV ONE (20:30)
[2021-10-16 20:38] LABS: Absolute Lymphocytes (CBC) 1.2 K/uL (0.7-4.9); Hematocrit 43.4 % (36.0-45.0); Lymphocytes % 8.2 % (15.3-44.8); MPV 9.3 fL (7.6-11.3); RBC Red Blood Cell Count 4.92 M/uL (3.86-4.86)
[2021-10-16 21:02] LABS: BUN Blood Urea Nitrogen 11 mg/dL (7-18); Bicarbonate 21 mmol/L (21-32); Glucose Level 142 mg/dL (74-106); Potassium 3.2 mmol/L (3.5-5.1); Sodium Level 139 mmol/L (136-145)
[2021-10-16 21:28] LABS: Blood Morphology Comment NOT SEEN (NOT SEEN); Platelet Estimate ADEQ; White Blood Cell Scan OK (OK)
[2021-10-16 21:37] LABS: ALT/SGPT 26 U/L (12-78); AST/SGOT 21 U/L (15-37); Albumin 4.3 g/dL (3.4-5.0); Alkaline Phosphatase 71 U/L (45-117); Bilirubin Direct < 0.1 mg/dL (0-0.2); Bilirubin Total 0.3 mg/dL (0.2-1.0); Lipase 74 U/L (73-393); Protein, Total 7.6 g/dL (6.4-8.2)
[2021-10-16 23:02] LABS: Urine Blood Negative (Negative); Urine Glucose Negative (Negative); Urine Protein 1+ (Negative); Urine pH 8.5 (5.0-7.0)
[2021-10-17] MEDS ORDERED: MORPHINE 4 MG/ML SYR ONE (00:07)
[2021-10-17] MEDS ORDERED: POTASSIUM 25 MEQ EFFERV TAB ONE (02:05)
--- NOTE | 2021-10-17 02:10 | ER ---
Nurse's Notes [facility] Name: Nicolette Solorio Age: 21 yrs Sex: Female : 2000 Arrival Date: 10/16/2021 Time: 18:13 Bed 16 Private MD: Diagnosis: Diarrhea, unspecified;Nausea with vomiting, unspecified;Other ovarian cysts Presentation: 10/16 20:34 Chief complaint: Patient states: I started feeling nauseous around 3:30-4 while at 1 work. I went to the bathroom and started vomiting. Now I have severe abdominal pain. "I feel like I'm going to ". Coronavirus screen: Vaccine status: Patient reports being unvaccinated. chills, diarrhea, muscle pain, nausea, vomiting. Ebola Screen: No symptoms or risks identified at this time. Onset of symptoms was October 16, 2021. 20:34 Method Of Arrival: Ambulatory vc1 20:34 Acuity: VIANEY 3 vc1 20:35 Risk Assessment: Do you want to hurt yourself or someone else? Patient reports no vc1 desire to harm self or others. 10/17 00:30 Initial Sepsis Screen: Does the patient meet any 2 criteria? No. Patient's initial vc1 sepsis screen is negative. Does the patient have a suspected source of infection? No. Patient's initial sepsis screen is negative. Triage Assessment: 10/16 20:35 General: Appears uncomfortable, ill, Behavior is cooperative, anxious. GI: Abd is soft vc1 Abdomen is tender to palpation Reports lower abdominal pain, upper abdominal pain, nausea. MORTAR MAN: 10/17 01:21 LMP N/A - Irregular menses vc1 Historical: - Allergies: 01:20 Cottonseed; vc1 - Immunization history:: Adult Immunizations up to date, Client reports having NOT received the Covid vaccine. - Social history:: Smoking status: Patient denies any tobacco usage or history of. Screenin/06 20:35 Abuse screen: Denies threats or abuse. Nutritional screening: No deficits noted. vc1 Tuberculosis screening: No symptoms or risk factors identified. Fall Risk None identified. Assessment: 20:35 General: Appears uncomfortable, ill, Behavior is cooperative, anxious. vc1 20:35 Pain: Complains of pain in abdomen Pain currently is 9 out of 10 on a pain scale. vc1 Neuro: No deficits noted. Cardiovascular: No deficits noted. Respiratory: No deficits noted. GI: Reports lower abdominal pain, upper abdominal pain, nausea. 10/17 00:00 Pain: Complains of pain in abdomen Pain currently is 10 out of 10 on a pain scale. GI: vc1 Abd is soft X 4 quads Abdomen is tender to palpation X 4 quads. 01:46 Reassessment: Patient appears in no apparent distress at this time. Placed in room from 1 waiting room. Family member at bedside. Patient denies pain at this time. Vital Signs: 10/16 20:34 BP 144 / 91; Pulse 76; Resp 22; Temp 97.6; Pulse Ox 100% on R/A; Weight 70.76 kg; vc1 Height 5 ft. 6 in. (167.64 cm); Pain 9/10; 10/17 01:46 BP 111 / 62; Pulse 56; Resp 18; Pulse Ox 100% ; ic1 02:36 BP 118 / 71; Pulse 65; Resp 18; Pulse Ox 99% on R/A; ic1 10/16 20:34 Body Mass Index 25.18 (70.76 kg, 167.64 cm) vc1 ED Course: 10/16 18:13 Patient arrived in ED. mr 20:17 Sarmad Peacock PA is PHCP. cp 20:17 Michael Wilkerson MD is Attending Physician. cp 20:35 Arm band placed on right wrist. vc1 20:35 Patient has correct armband on for positive identification. Placed in wheelchair vc1 sitting in ED lobby. 20:35 Inserted saline lock: 20 gauge in right antecubital area, using aseptic technique. vc1 20:36 Triage completed. vc1 10/17 01:02 Abdomen In Process Unspecified. EDMS Administered Medications: 10/16 20:33 Drug: NS 0.9% 1000 ml Route: IV; Rate: 1 bolus; Site: right antecubital; vc1 20:34 Drug: Zofran (Ondansetron) 4 mg Route: IVP; Site: right antecubital; vc1 10/17 00:32 Follow up: Response: No adverse reaction vc1 10/16 20:34 Drug: Pepcid (famotidine) 20 mg Route: IVP; Site: right antecubital; vc1 10/17 00:32 Follow up: Response: No adverse reaction vc1 00:05 Drug: morphine 4 mg Route: IVP; Site: right antecubital; vc1 00:32 Follow up: Response: No adverse reaction vc1 02:05 Drug: Potassium Effervescent Tablet 50 mEq Route: PO; ic1 Outcome: 02:09 Discharge ordered by . uriel 02:17 Discharged to home ambulatory, with family. ic1 02:17 Condition: stable 02:17 Discharge instructions given to patient, Instructed on discharge instructions, follow up and referral plans. Demonstrated understanding of instructions, follow-up care. 02:35 Discharged to ic1 02:35 Prescriptions given X 3. 02:50 Patient left the ED. ic1 Signatures: Dispatcher [employer] AUGUSTINA DonnieMariam Corey, Radha Talbot cp, RN RN ic1 Sharlene Prieto RN RN vc1 Corrections: (The following items were deleted from the chart) 00:29 00:28 General: Appears uncomfortable, ill, Behavior is cooperative, anxious, vc1 vc1 00:29 00:28 GI: Abd is soft Abdomen is tender to palpation Reports lower abdominal pain, vc1 upper abdominal pain, nausea, vc1
--- NOTE | 2021-10-17 02:10 | EDPHYS ---
Physician Documentation [facility] Name: Nicolette Solorio Age: 21 yrs Sex: Female : 2000 Arrival Date: 10/16/2021 Time: 18:13 Bed 16 Private MD: ED Physician Michael Wilkerson HPI: 10/16 20:18 This 21 yrs old Female presents to ER via Unassigned with complaints of Abdominal Pain, cp Vomiting/Diarrhea. 20:18 The patient presents with abdominal pain that is diffuse. cp 20:18 Onset: The symptoms/episode began/occurred today. Associated signs and symptoms: cp Pertinent positives: nausea, vomiting, and diarrhea, Pertinent negatives: blood in stools, chest pain, constipation, dysuria, fever, vomiting blood. The symptoms are described as constant. Severity of pain: in the emergency department the pain is unchanged despite home interventions. 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 - Social history:: Smoking status: Patient denies any tobacco usage or history of. ROS: 10/16 20:25 Constitutional: Negative for body aches, chills, fever, poor PO intake. cp 20:25 Eyes: Negative for injury, pain, redness, and discharge. cp 20:25 ENT: Negative for drainage from ear(s), ear pain, sore throat, difficulty swallowing, difficulty handling secretions. 20:25 Cardiovascular: Negative for chest pain. 20:25 Respiratory: Negative for cough, shortness of breath, wheezing. 20:25 Abdomen/GI: Positive for abdominal pain, nausea, vomiting, and diarrhea, Negative for constipation. 20:25 Back: Negative for radiated pain. 20:25 : Negative for urinary symptoms, vaginal bleeding. 20:25 Neuro: Negative for altered mental status, headache, weakness. 20:25 All other systems are negative. Exam: 20:30 Constitutional: The patient appears in no acute distress, alert, awake, non-toxic, well cp developed, well nourished, uncomfortable. 20:30 Head/Face: Normocephalic, atraumatic. cp 20:30 Eyes: Periorbital structures: appear normal, Conjunctiva: normal, no exudate, no injection, Sclera: no appreciated abnormality, Lids and lashes: appear normal, bilaterally. 20:30 ENT: External ear(s): are unremarkable, Nose: is normal, Mouth: Lips: moist, Oral mucosa: moist, Posterior pharynx: Airway: no evidence of obstruction, patent. 20:30 Chest/axilla: Inspection: normal. 20:30 Cardiovascular: Rate: normal, Rhythm: regular. 20:30 Respiratory: the patient does not display signs of respiratory distress, Respirations: normal, no use of accessory muscles, no retractions, labored breathing, is not present, Breath sounds: are clear throughout, no decreased breath sounds, no stridor, no wheezing. 20:30 Abdomen/GI: Inspection: abdomen appears normal, Bowel sounds: active, all quadrants, Palpation: soft, in all quadrants, severe abdominal tenderness, in the abdomen diffusely, rebound tenderness, is not appreciated, voluntary guarding, is elicited in the abdomen diffusely. 20:30 Back: CVA tenderness, is absent. 20:30 Neuro: Orientation: to person, place \T\ time. Mentation: is normal, Motor: moves all fours, strength is normal, Sensation: is normal. Vital Signs: 20:34 BP 144 / 91; Pulse 76; Resp 22; Temp 97.6; Pulse Ox 100% on R/A; Weight 70.76 kg; vc1 Height 5 ft. 6 in. (167.64 cm); Pain 9/10; 10/17 01:46 BP 111 / 62; Pulse 56; Resp 18; Pulse Ox 100% ; ic1 02:36 BP 118 / 71; Pulse 65; Resp 18; Pulse Ox 99% on R/A; ic1 10/16 20:34 Body Mass Index 25.18 (70.76 kg, 167.64 cm) vc1 MDM: 10/16 22:00 Differential diagnosis: appendicitis, diverticulitis, Ectopic , gastritis, cp Ovarian Torsion, Ureterolithiasis, urinary tract infection, colitis. 10/17 01:44 Patient medically screened. cp 02:08 Data reviewed: vital signs, nurses notes, lab test result(s), radiologic studies, CT cp scan. 02:08 Counseling: I had a detailed discussion with the patient and/or guardian regarding: the cp historical points, exam findings, and any diagnostic results supporting the discharge/admit diagnosis, lab results, radiology results, to return to the emergency department if symptoms worsen or persist or if there are any questions or concerns that arise at home. Response to treatment: the patient's symptoms have markedly improved after treatment, and as a result, I will discharge patient. Special discussion: Based on the patient's Hx, exam, and Dx evaluation, there is no indication for emergent surgery or inpatient Tx. It is understood by the patient/guardian that if the Sx's persist or worsen they need to return immediately for re-evaluation. 10/16 20:18 Order name: Basic Metabolic Panel; Complete Time: 23:22 cp 10/16 23:22 Interpretation: Normal except: K 3.2; CL 108; GLUC 142. cp 10/16 20:18 Order name: CBC with Diff; Complete Time: 23:22 cp 10/16 23:23 Interpretation: Normal except: WBC 14.20; RBC 4.92; DELANO% 88.7; LYM% 8.2; MN% 2.9; NEUT cp A 12.6. 10/16 20:18 Order name: Hepatic Function; Complete Time: 23:22 cp 10/16 20:18 Order name: Lipase; Complete Time: 23:22 cp 10/16 21:28 Order name: CBC Smear Scan; Complete Time: 23:22 EDNC 10/16 21:59 Order name: SARS-COV-2 RT PCR; Complete Time: 23:22 EDNC 10/16 23:01 Order name: Urine Dipstick-Ancillary; Complete Time: 23:22 EDNC 10/16 23:24 Interpretation: Normal except: UKET 3+; UPH 8.5; UPROT 1+. cp 10/17 00:37 Order name: Abdomen EDMS 10/16 20:18 Order name: IV Saline Lock; Complete Time: 20:24 cp 10/16 20:18 Order name: Labs collected and sent; Complete Time: 20:34 cp 10/16 20:18 Order name: Urine Dipstick-Ancillary (obtain specimen); Complete Time: 23:42 cp 10/17 01:44 Order name: PO challenge cp 10/17 01:45 Order name: Urine Test (obtain specimen); Complete Time: 02:02 cp Administered Medications: 10/16 20:33 Drug: NS 0.9% 1000 ml Route: IV; Rate: 1 bolus; Site: right antecubital; vc1 20:34 Drug: Zofran (Ondansetron) 4 mg Route: IVP; Site: right antecubital; vc1 10/17 00:32 Follow up: Response: No adverse reaction vc1 10/16 20:34 Drug: Pepcid (famotidine) 20 mg Route: IVP; Site: right antecubital; vc1 10/17 00:32 Follow up: Response: No adverse reaction vc1 00:05 Drug: morphine 4 mg Route: IVP; Site: right antecubital; vc1 00:32 Follow up: Response: No adverse reaction vc1 02:05 Drug: Potassium Effervescent Tablet 50 mEq Route: PO; ic1 Disposition: 06:52 Co-signature as Attending Physician, Michael Wilkerson MD. pkl Disposition Summary: 10/17/21 02:09 Discharge Ordered Location: Home cp Problem: new cp Symptoms: have improved cp Condition: Stable cp Diagnosis - Diarrhea, unspecified cp - Nausea with vomiting, unspecified cp - Other ovarian cysts cp Followup: cp - With: Private Physician - When: 1 - 2 days - Reason: Worsening of condition Discharge Instructions: - Discharge Summary Sheet cp - Food Choices to Help Relieve Diarrhea, Adult cp - Diarrhea, Adult cp - Nausea and Vomiting, Adult cp - Ovarian Cyst cp Forms: - Medication Reconciliation Form cp - Thank You Letter cp - Antibiotic Education cp - Prescription Opioid Use cp Prescriptions: - Ibuprofen 800 mg Oral Tablet - take 1 tablet by ORAL route every 8 hours As needed take with food; 30 tablet; cp Refills: 0, Product Selection Permitted - Zofran 4 mg Oral Tablet - take 1 tablet by ORAL route every 12 hours As needed; 20 tablet; Refills: 0, cp Product Selection Permitted - dicyclomine 20 mg Oral Tablet - take 1 tablet by ORAL route 4 times per day; 30 tablet; Refills: 0, Product cp Selection Permitted Signatures: Dispatcher [employer] Michael Rosales MD MD pkl Sarmad Peacock PA PA cp Creggett, Iesha RN RN ic1 Sharlene Prieto RN RN vc1 Corrections: (The following items were deleted from the chart) 10/16 21:59 21:44 CORONAVIRUS+MR.LAB.BRZ ordered. EDMS EDMS 10/17 00:35 10/16 23:24 Abdomen Pelvis W Con+CT.RAD.BRZ ordered. EDMS EDMS
[2021-10-17 03:15] VITALS: TEMP 97.6
[2021-10-17 03:25] VITALS: BP 118/71; O2SAT 99
--- NOTE | 2021-10-17 11:31 | RAD REPORT ---
EXAM DESCRIPTION: CT - Abdomen Pelvis W Contrast - 10/17/2021 6:03 am CLINICAL HISTORY: The patient is 21 years old and is Female; ABD PAIN TECHNIQUE: Axial computed tomography images of the abdomen and pelvis with intravenous contrast. S agittal and coronal reformatted images were created and reviewed. This CT exam was performed using one or more of the following dose reduction techniques: automated exposure control, adjustment of t he mA and/or kV according to patient size, and/or use of iterative reconstruction technique. DLP: 987 mGy*cm COMPARISON: None. FINDINGS: LUNG BASES: Lung bases are clear. HEART: Visualized heart is normal. ABDOMEN: LIVER: Subcentimeter right hepatic hypodensity, too small to characterize by CT criteria. GALLBLADDER AND BILE DUCTS: Unremarkable. No calcified stones. No ductal dilation. PANCREAS: Unremarkable. No mass. No ductal dilation. SPLEEN: Unremarkable. No splenomegaly. ADRENALS: Unremarkable. No mass. KIDNEYS AND URETERS: Unremarkable. No solid mass. No hydronephrosis. STOMACH AND BOWEL: Unremarkable. No obstruction. No mucosal thickening. PELVIS: APPENDIX: The appendix is seen and is within normal limits. BLADDER: Unremarkable. No mass. REPRODUCTIVE: Right ovarian cyst measuring 3.9 cm. ABDOMEN and PELVIS: INTRAPERITONEAL SPACE: Unremarkable. No free air. No significant fluid collection. BONES/JOINTS: No acute fracture. No dislocation. SOFT TISSUES: Small fat-containing ventral hernia. VASCULATURE: Unremarkable. No abdominal aortic aneurysm. LYMPH NODES: Unremarkable. No enlarged lymph nodes. IMPRESSION: 1. No acute abdominal or pelvic abnormality. 2. Right ovarian cyst measuring 3.9 cm. No follow-up imaging is recommended. Reference: US recommendations based on Radiology 2010 Sep;256(3):943-54; CT/MR recommendations based on J Am Gee Radiol 2013;10:675-681. 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 The interpreting r adiologist is fully responsible for the content of the report.
== END 2021-10-17 02:50 | disposition home or self-care (01) ==
LOC: ER 18:08
DX: R19.7 Diarrhea, unspecified (principal); N83.299 Other ovarian cyst, unspecified side; Z20.822 Contact with and (suspected) exposure to COVID-19
CPT/HCPCS: 85025; 80048; 36415; 80076; 81003; 83690; 74177; 96375; 96374; 99284; U0003; Q9967; J7030; J2405

== ENCOUNTER 2022-11-13 13:20 | Emergency (ER) | payer BC ==
--- OUTSIDE RECORDS SUMMARY | 2022-11-13 13:33 | XMS REPORT | Continuity of Care Document ---
:2000 Author Organization [facility] t Address [address] [place] [address] Support Name Relationship Address Phone PATRICIA POWELL Unavailable [address] [phone] [place] [id number] PATRICIA POWELL Unavailable [address] [place] [id number] Unavailable [address] [facility] [address] [phone] [place] [address] Delma Solorio C O [address] [place] [address] Healthcare Proxy O Created by the Eligibility Depa rtment Unavailable PLEASE DO NOT MODIFY Billing Purposes, Legal Guardian, None O Created by the Eligibility Department Unavailable PLEASE DO NOT MODIFY Billing Purposes, Primary Caregiver O Created by the Eligibility Dep artment Unavailable PLEASE DO NOT MODIFY Billing Purposes, Kady Joyner O [address] [facility] [phone] [place] [address] Healthcare Proxy O PLEASE DO NOT MODIFY Unavailabl e PLEASE DO NOT MODIFY Billing Purposes, Legal Guardian O PLEASE DO NOT MODIFY Unavailable PLEASE DO NOT MODIFY Billing Purposes, Primary Caregiver O PLEASE DO NOT MODIFY Unavailab le PLEASE DO NOT MODIFY Billing Purposes, Patricia Powell O [address] [facility] [address] Care Team Providers Name Role Phone Amando Orozco MD Primary Care Physician sharita.roopa Attending Clinician Unavailable Ar SAMUELS-Kady STACK Attending Clinician [phone] Kehinde HAM, Sasha Attending Clinician Unavailable Zane Farnsworth MD Attending Clinician Hoang Garcia Attending Clinician Unavailable Lila Doss Attending Clinician Unavailable Lila Doss Attending Clinician Unavailable Lily Acosta Attending Clinician Unavailable Christine Yoo Attending Clinician Unavailable Virginie Kevin Attending Clinician Unavailable Provider, [facility] Attending Clinician Unavail able Collin Gimenez Attending Clinician Unavailable Malgorzata Clinton Attending Clinician Unavailable Amandeep Galvez Attending Clinician [phone] Rick Suh Attending Clinician Unavailable Aracely Fritz Attending Clinician Unavailable Oxana Yang Attending Clinician Unavailable Kalen Darling Attending Clinician Unavailable DR JAMARCUS LOCO Attending Clinician Unavailable Hoang Garcia Admitting Clinician Unavailable DR JAMARCUS LOCO Admitting Clinician Unavailable Ar [employer]-ANP, Rodari Unavailable [phone] Payers Payer Name Policy Type Policy Number Effective Date Expiration Date S pool Self Pay P [id number] 2019 00:00:00 Self Pay 11 [id number] 2021 2022 [facility] 00:00:00 00:00:00 [facility] Self Pay CI [id number] 2019 2020 [facility] 00:00:00 00:00:00 [facility] Problems Condition Condition Condition Status Onset Resolution Last Treating Co mments Source Name Details Category Date Date Treatment Clinician Date Polycythem Condition Active 2021-102022-07-20 [facility] [place], 0- 10:09:55 Rodari Adult secondary 00:00: Medicin 00 e Migraine Condition Active 2020-08-28 Ar [facility] headache 5-20 14:23:27 Rodari Adult 00:00: Medicin 00 e Overweight Condition Active 2020-08-28 Ar [facility] 1-08 14:23:27 Rodari Adult 00:00: Medicin 00 e Hepatitis Condition Active 2018-102020-08-28 Ar [facility] A immunity 1-15 14:23:27 Rodari Adul t 00:00: Medicin 00 e Vitamin D Condition Active 2018-102020-08-28 Ar [facility] deficiency 1-15 14:23:27 Rodari Adul t 00:00: Medicin 00 e Unspecifie Condition Active 2018-102020-08-28 Brandan Joyner [facility] d 1-13 14:23:27 Rodari uline Adult endocrine 00:00: (Female Medici n disorder 00 to Male) e Encounter Condition Active 2018-102020-08-28 AIDEN Joyner for 10-23 14:23:27 Rodari Adult immunizati 00:00: Medici n on 00 e Screening Condition Active 2018-102020-08-28 AIDEN Joyner for lipid 10-23 14:23:27 Rodari Adult disorder 00:00: Medicin 00 e Abdominal Abdominal Disease Active Uni vers pain pain 2-25 ity of 00:00: [facility] Screening Condition Active 2018-102019-10-25 2020-08-28 AIDEN Joyner for 10-23 00:00:00 14:28:17 Rodari Adult vitamin D 00:00: Medicin deficiency 00 e History of Past Illness Condition Condition Condition Status Onset Resolution Last Treating Co mments Source Name Details Category Date Date Treatment Clinician Date BMI Condition Inactiv 2018-102022-08-10 2022-08-10 AIDEN Joyner 24.0-24.9 e 10-23 00:00:00 15:18:43 Rodari Alfredo lt 00:00: Medicin 00 e Abdominal Condition Inactiv 2021-01-15 2021-01-15 AIDEN Joyner pain, e 04-24 00:00:00 12:20:46 Rodari Adult epigastric 00:00: Medici n 00 e Urticaria, Condition Inactiv 2019-10-25 2019-10-25 AIDEN Joyner allergic e 10-18 00:00:00 10:43:46 Rodari Adul t 00:00: Medicin 00 e Screening Condition Inactiv 2018-102019-10-25 2019-10-25 AIDEN Joyner for e 10-23 00:00:00 10:43:46 Rodari Adult endocrine 00:00: Medicin disease 00 e Screening Condition Inactiv 2018-102019-10-25 2019-10-25 AIDEN Joyner for e 10-23 00:00:00 10:43:46 Rodari Adult chlamydial 00:00: Medici n disease 00 e Screening Condition Inactiv 2018-102019-10-25 2019-10-25 AIDEN Joyner for std e 10-23 00:00:00 10:43:46 Rodari Adult 00:00: Medicin 00 e Special Condition Inactiv 2018-102019-10-25 2019-10-25 AIDEN Joyner screening e 10-23 00:00:00 10:43:46 Rodari Alfredo lt examinatio 00:00: Medici n n for 00 e other specified viral diseases Screening Condition Inactiv 2018-102019-10-25 2019-10-25 AIDEN Joyner for DM e 10-23 00:00:00 10:43:46 Rodari Adult 00:00: Medicin 00 e Allergies, Adverse Reactions, Alerts Allergy Allergy Status Severity Reaction(s) Onset Inactive Treating Comm ents Source Name Type Date Date Clinician [place] DA Active [place] [facility] [place] [facility] [place] DA Active [place] [facility]01 [place] [facility] TESTOSTE Drug Active High Wheal/hives LM LEIGHA allergy Criticali redness and 10-18 A dult CYPIONAT (disorde ty itching. 00:00: Medi tristen E r) 00 e NO KNOWN Drug Active Univers ALLERGIE Class ity of [facility] Social History Social Habit Start Date Stop Date Quantity Comments Source Exposure to Not sure University of SARS-CoV-2 (event) [facility] drug use 2022-08-10 2022-08-10 Currently [facility] 15:02:34 15:02:34 [facility] alcohol use 2022-08-10 2022-08-10 Currently [facility] 15:02:34 15:02:34 [facility] passive cigarette 2022-08-10 2022-08-10 No [facility] smoke exposure 15:02:34 15:02:34 Community Health if the patient is 2022-08-10 2022-08-10 No [facility] using/has used a 15:02:34 15:02:34 Communit y vaping item, Health Current, Former, Never Used, Not asked social history E&M 2022-08-10 2022-08-10 Dating. [facility] 15:02:34 15:02:34 Spouse/Partner/Signif Com munity icant Other: Female. Heal th Granmother and Brother supporitive/affirming Not homeless. Born in [facility]. [facility]: [facility] . State: [place]. Lives with parentesEmployed full-time. 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 Highest education level: some college. 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 Sexual orientation: Heterosexual. Gender identity: Transgender (Female to Male). Gender of partner(s): Female. Age of first sexual intercourse: 18. Sexually Active: Yes. Sexually active -declined PrEP. assessment of 2022-08-10 2022-08-10 Adequate [facility] health literacy 15:02:34 15:02:34 [facility] ([facility] 2014 Health Standards, 3C10) number of children 2022-08-10 2022-08-10 [facility] 15:02:34 15:02:34 [facility] sexual orientation 2022-08-10 2022-08-10 Heterosexual Lega cy 15:02:34 15:02:34 [facility] social history 2022-08-10 2022-08-10 reviewed today [facility] reviewed E&M 15:02:34 15:02:34 [facility] is there any chance 2022-08-10 2022-08-10 No Legac y that you could be 15:02:34 15:02:34 Communi ty ? Health PHQ2 Questionairre 2022-08-10 2022-08-10 [facility] Score 15:02:34 15:02:34 [facility] alcohol use, 2022-08-10 2022-08-10 once or twice a month L egacy frequency 15:02:34 15:02:34 [facility] albumin, serum 2022-07-15 2022-07-15 4.9 g/dL Legacy 00:00:00 00:00:00 [facility] time of call 2022-07-08 2022-07-08 07/08/2022 4:44 PM Lega cy 16:44:32 16:44:32 [facility] drug use, illicit, 2020-08-28 2020-08-28 marijuana Legacy drug of choice 14:05:12 14:05:12 [facility] drug use, illicit, 2020-02-28 2020-02-28 few times per month Legacy frequency 09:30:12 09:30:12 [facility] Occupation #1 2019-08-23 2019-08-23 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 Lega cy 09:38:39 09:38:39 [facility] smoke detector 2019-08-23 2019-08-23 Yes [facility] present in home 09:38:39 09:38:39 [facility] helmet use when 2019-08-23 2019-08-23 No [facility] riding 09:38:39 09:38:39 [facility] seatbelt usage 2019-08-23 2019-08-23 No [facility] 09:38:39 09:38:39 [facility] caffeine use, 2019-08-23 2019-08-23 1 /d [facility] average drinks per 09:38:39 09:38:39 Commun ity day Health I do not always 2019-08-23 2019-08-23 Yes Legacy have enough money 09:38:39 09:38:39 Communi ty to buy food with Health fiber intake 2019-08-23 2019-08-23 No [facility] 09:38:39 09:38:39 [facility] fat intake per day 2019-08-23 2019-08-23 No Legacy 09:38:39 09:38:39 [facility] iron intake per day 2019-08-23 2019-08-23 No Legac y 09:38:39 09:38:39 [facility] physical exercise, 2019-08-23 2019-08-23 1 /wk [facility] frequency, days per 09:38:39 09:38:39 Commu nity week Health exercise type 2019-08-23 2019-08-23 weights Legacy 09:38:39 09:38:39 [facility] tobacco use 2019-08-23 2019-08-23 Never [facility] (cigarettes, cigar, 09:38:39 09:38:39 Commu nity chew, pipe) Health social history - 2019-08-23 2019-08-23 Sexually active Leg acy sexual practice 09:38:39 09:38:39 -declined PrEP. Comm may Health home/family 2019-08-23 2019-08-23 Lives with parentes Legisis cy situation, 09:38:39 09:38:39 Community assessment Health family support 2019-08-23 2019-08-23 Granmother and Legacy 09:38:39 09:38:39 Brother Community supporitive/affirming [facility] patient considered 2019-08-23 2019-08-23 No Legacy to be homeless 09:38:39 09:38:39 [facility] Alcohol intake 2017-08-02 2017-08-02 Current non-drinker M ethodist 00:00:00 00:00:00 of alcohol (finding) Hosp ital Sex Assigned At 2000 2000 [facility]ast[facility] 00:00:00 00:00:00 Hospital Smoking Status Start Date Stop Date Source Never smoked tobacco (finding) L egacy [facility] Medications Ordered Filled Start Stop Current Ordering Indication Dosage Frequency Signature Comments Components Source Medication Medication Date Date Medication? Clinician (SIG) Name Name VITAMIN D 2021-10 Yes Kady 1 Take 1 Lega cy (ERGOCALCIF 0-10 Joyner capsule by Communi OCTAVIA) 00:00: [employer] HAND-ANP mouth once ty (ERGOCALCIF 00 a week Health OCTAVIA) 1.25 Service MG (09513 s [place]) CAPS BD DISP Yes Rodari 1 Use 1 [facility] NEEDLES 2-16 Joyner needle Communi (NEEDLE 00:00: [employer] HAND-ANP subcutaneo ty (DISP)) 25G 00 usly once a lt X 5/8" MISC a week Servic e Used for s injecting testostero ne subcutaneo usly once a week. BD Yes Kady 1 Use 1 [facility] HYPODERMIC 2-16 Joyner needle Commu ni NEEDLE 00:00: [employer] HAND-ANP subcutaneo ty (NEEDLE 00 usly once Health (DISP)) 22G a week Servic e X 1" MISC Used 22 g s needle to draw up testostero ne once a week. BD SYRINGE Yes Kady 1 Use 1 Lega cy LUER-DANIEL 2-16 Joyner syringe Commun i (SYRINGE 00:00: [employer] HAND-ANP subcutaneo t y (DISPOSABLE 00 usly once Hea lth )) 1 ML a week Service MISC Used for s drawing up and injecting testostero ne subcutaneo usly once a week. (TESTOSTERO 2020-10 Yes Kady .5 Inject 0.5 0.5 x 6 [facility] NE 0-17 Joyner ml weeks=3ml Communi ENANTHATE) 00:00: [employer] HAND-ANP subcutaneo ty 200 MG/ML 00 usly once Healt h SOLN a week Service s VITAMIN D 2020-10- No Rodari 1 Take 1 Leg acy (ERGOCALCIF 0-14 02-16 Joyner capsule by Communi OCTAVIA) 00:00: 00:00 mouth once ty (ERGOCALCIF 00 :00 a week for He alth OCTAVIA) 1.25 12 weeks Servi ce MG (58475 s [place]) CAPS FENTanyl PF 2020- No 50ug 50 mcg, Un dolly (SUBLIMAZE 05-29 Slow IV ity o f (PF)) 04:30: 03:29 Push, [place] injection 00 :00 ONCE, 1 Medical 50 mcg dose, Wed Branch 05/28/21 at 2330, STAT iopamidol 2020- No [id number] 100mL 100 mL, Univers (ISOVUE 05-29 Intravenou [...] dose, Wed Branch 05/28/21 at 2115, Routine
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 Indication s: acute pain pantoprazol Yes [id number] 40mg Take 1 Univers e 8-18 tablet by ity of (PROTONIX) 00:00: mouth [place] 40 mg EC 00 daily. Medical tablet Branch proMETHazin Yes [id number] 25mg Take 1 Univers e 25 mg 8-18 tablet by ity of tablet 00:00: mouth [place] 00 every 6 Medical (six) Branch hours as needed for Nausea and Vomiting (N/V). Nitrofurant Yes [id number] 100mg Take 1 Univers oin&Nit. 8-18 capsule by ity o f Macrocryst 00:00: mouth 2 [place] (MACROBID) 00 (two) Medical 100 mg times Branch capsule daily. VITAMIN D2 2020- No Rodari 1 1xD 1 tablet [facility] (ERGOCALCIF 6-29 10-14 Joyner by mouth C ommuni OCTAVIA) 50 00:00: 00:00 once a day ty MCG (1999 00 :00 Health MS) TABS Service s VITAMIN D 2020- No Rodari 1 [id number] 1 capsule [facility] (ERGOCALCIF 4-05 06-28 Joyner by mouth C ommuni OCTAVIA) 00:00: 00:00 [employer] HAND-ANP once per ty (ERGOCALCIF 00 :00 week for Heal th OCTAVIA) 1.25 12 weeks Servi ce MG (24184 s [place]) CAPS IMITREX 2019- No Rodari 1 by mouth L egacy (SUMATRIPTA 5-20 05-30 Joyner at onset C ommuni N 00:00: 00:00 [employer] HAND-ANP of ty SUCCINATE) 00 :00 migraine Healt h 25 MG TABS headache. Serv ice May repeat s in 2 hours, max 200 mg per day VITAMIN D 2020- No Rodari 1 tablet L egacy (ERGOCALCIF 2-08 04-05 Joyner By Mouth C ommuni OCTAVIA) 00:00: 00:00 daily. ty (ERGOCALCIF 00 :00 Start Health OCTAVIA) 50 taking Service MCG (2000 after s UT) CAPS completing ALL 12 weeks of High Dose Vitamin D. 25G X 02/15- No Rodari Use Legac y INCH 11-14 Joyner subcutaneo Commun i NEEDLES 00:00: 00:00 usly ty 00 :00 Health Service s 22G X 1 2018-10- No Rodari Use Legacy INCH -01 10- Joyner Communi NEEDLES 00:00: 00:00 ty 00 :00 Health Service s 1CC 2018-10- No Rodari Used for Legacy LUER-LOCK 11-14 Ar drawing up C ommuni SYRINGES 00:00: 00:00 and ty 00 :00 injecting Health testostero Service ne s (TESTOSTERO 2018-10- No Rodari Inject 0.5 x 6 Legacy NE 11-14 Joyner 0.5ml(100m weeks=3ml C ommuni ENANTHATE) 00:00: 00:00 g) ty 200 MG/ML 00 :00 Subcutaneo Heal th SOLN usly every Service 7 days. s VITAMIN D 2018-10- No Rodari 1{Capsu [id number] One [facility] (ERGOCALCIF 1-15 - Ar le} capsule by Communi OCTAVIA) 00:00: 00:00 [employer]-ANP mouth once ty (ERGOCALCIF 00 :00 per week Heal th OCTAVIA) 1.25 for 12 Service MG (60601 weeks s [place]) CAPS HYDROcodone Yes Method i -acetaminop 11-06 st hen (NORCO) 00:00: Hospit a 10-325 mg 00 l per tablet Immunizations Ordered Immunization Filled Immunization Date Status Commen ts Source Name Name Gardasil 9 IM 2019-11-15 Completed [facility] Comm [place] [id number] 10:10:00 Health Gardasil 9 IM 2019-09-13 Completed [facility] Comm [place] [id number] 16:51:00 Health Tdap 2018-05-02 Completed [facility] Communi ty 00:00:00 Health Vital Signs Vital Name Observation Time Observation Value Comments Source Systolic blood 2021-05-29 04:38:00 102 mm[Hg] Univer sity of pressure [facility] Diastolic blood 2021-05-29 04:38:00 86 mm[Hg] Unive rsity of [facility] Heart rate 2021-05-29 04:38:00 66 /min Universi [facility] Respiratory rate 2021-05-29 04:10:00 20 /min [facility] Oxygen saturation in 2021-05-29 04:10:00 99 /min [facility] blood by [facility] Pulse oximetry Branch Body temperature 2021-05-29 00:38:00 37.28 [facility] height 2021-05-29 00:38:00 170.2 cm [facility] Body weight 2021-05-29 00:38:00 72.122 kg [facility] BMI 2021-05-29 00:38:00 24.90 kg/m2 [facility] height in 2022-08-10 15:02:34 165.10 [facility] height E&M 2021-01-15 11:52:30 65 [in_i] [facility] C ommunity Health blood pressure, 2020-08-28 14:05:12 82 mm[Hg] Legac [facility] diastolic, second Health observation blood pressure, 2020-08-28 14:05:12 123 mm[Hg] Legac [facility] systolic, second Health observation oxygen saturation, 2020-08-28 14:05:12 98 /min Ilda etienne [facility] oximetry Health pulse rate 2020-08-28 14:05:12 77 /min [facility] temperature E&M 2020-08-28 14:05:12 98.7 [degF] Legac y [facility] Health height in 2020-08-28 14:05:12 165.10 [facility] centimeters [facility] weight E&M 2020-08-28 14:05:12 159 [lb_av] [facility] C ommunity Health weight in kilograms 2020-08-28 14:05:12 72.27 kg L egacy [facility] E[facility]M Health temperature site 2020-08-28 14:05:12 oral Lega cy [facility] temperature site 2020-08-28 14:05:12 oral Lega cy [facility] BMI (body mass 2020-08-28 14:05:12 n/a [facility] Community index) percentile Health Body Mass Index 2020-08-28 14:05:12 26.55 kg/m2 Legac y Community (Ratio) Health height E&M 2020-06-05 08:19:08 65 [in_i] [facility] 2020-01-17 09:46:13 oral Lega [facility] temperature site 2020-01-17 09:46:13 oral Lega [facility] oxygen saturation, 2019-12-06 09:54:04 99 /min [facility] oximetry Health blood pressure, 2019-12-06 09:54:04 80 mm[Hg] Legac [facility] diastolic Health blood pressure, 2019-12-06 09:54:04 125 mm[Hg] Legac [facility] systolic Health pulse rate 2019-12-06 09:54:04 73 /min Legacy C [facility] temperature E&M 2019-12-06 09:54:04 98.5 [degF] [facility] weight [facility]&M 2019-12-06 09:54:04 153 [lb_av] [facility] weight in kilograms 2019-12-06 09:54:04 69.55 kg L egacy [facility] E&M Health height E&M 2019-12-06 09:54:04 65 [in_i] [facility] C [facility] Health weight percentile 2019-12-06 09:54:04 83 Leg [facility] Health height percentile 2019-12-06 09:54:04 61 [facility] 2019-12-06 09:54:04 oral Lega [facility] Health Body Mass Index 2019-12-06 09:54:04 25.55 kg/m2 Legac y Community (Ratio) Health BMI (body mass 2019-12-06 09:54:04 82 % [facility] Community index) percentile Health temperature site 2019-12-06 09:54:04 oral Lega cy [facility] oxygen saturation, 2019-11-15 09:59:34 96 /min [facility] Health blood pressure, 2019-11-15 09:59:34 70 mm[Hg] [facility] diastolic Health blood pressure, 2019-11-15 09:59:34 138 mm[Hg] Legac y [facility] systolic Health pulse rate 2019-11-15 09:59:34 71 /min [facility] temperature E&M 2019-11-15 09:59:34 98.4 [degF] Legac y [facility] Health temperature site 2019-11-15 09:59:34 tympanic Lega cy [facility] Health temperature site 2019-11-15 09:59:34 tympanic Lega [facility] Health oxygen saturation, 2019-10-25 10:16:18 98 /min [facility] oximetry Health blood pressure, 2019-10-25 10:16:18 78 mm[Hg] Legac y [facility] diastolic Health blood pressure, 2019-10-25 10:16:18 115 mm[Hg] Legac [facility] systolic Health pulse rate 2019-10-25 10:16:18 63 [facility] E&M 2019-10-25 10:16:18 98.3 [degF] Legac y [facility] Health weight E&M 2019-10-25 10:16:18 155 [lb_av] Legacy C [facility] Health weight in kilograms 2019-10-25 10:16:18 70.45 kg L egacy [facility] E&M Health height E&M 2019-10-25 10:16:18 65 [in_i] Legacy C [facility] Health weight percentile 2019-10-25 10:16:18 85 Leg [facility] Health height percentile 2019-10-25 10:16:18 61 Leg acy [facility] temperature site 2019-10-25 10:16:18 oral Lega [facility] Health Body Mass Index 2019-10-25 10:16:18 25.89 kg/m2 Legac [facility] ([facility] Health BMI (body mass 2019-10-25 10:16:18 83 % [facility] index) percentile Health temperature site 2019-10-25 10:16:18 oral Lega cy [facility] Health oxygen saturation, 2019-10-18 10:49:06 98 /min [facility] oximetry Health blood pressure, 2019-10-18 10:49:06 85 mm[Hg] Legac y [facility] diastolic Health blood pressure, 2019-10-18 10:49:06 135 mm[Hg] Legac y [facility] systolic Health pulse rate 2019-10-18 10:49:06 66 /min [facility] C ommunity Health temperature E&M 2019-10-18 10:49:06 98.2 [degF] Legac y [facility] Health weight E&M 2019-10-18 10:49:06 152 [lb_av] [facility] C ommunity Health weight in kilograms 2019-10-18 10:49:06 69.09 kg L [facility] E&M Health height in 2019-10-18 10:49:06 165.10 cm [facility] C ommunity centimeters E&M Health weight percentile 2019-10-18 10:49:06 83 Leg acy [facility] Health height percentile 2019-10-18 10:49:06 61 Leg y [facility] temperature site 2019-10-18 10:49:06 oral Lega cy [facility] Health Body Mass Index 2019-10-18 10:49:06 25.39 kg/m2 [facility] Health BMI (body mass 2019-10-18 10:49:06 81 % [facility] percentile Health temperature site 2019-10-18 10:49:06 oral Lega [facility] Health oxygen saturation, 2019-09-13 09:48:48 98 /min [facility] oximetry Health blood pressure, 2019-09-13 09:48:48 88 mm[Hg] [facility] diastolic Health blood pressure, 2019-09-13 09:48:48 127 mm[Hg] [facility] systolic Health pulse rate 2019-09-13 09:48:48 84 /min [facility] C ommunity Health temperature E&M 2019-09-13 09:48:48 98.4 [degF] Legac [facility] Health weight E&M 2019-09-13 09:48:48 149 [lb_av] [facility] C ommunity Health weight in kilograms 2019-09-13 09:48:48 67.73 kg L [facility] E&M Health height E&M 2019-09-13 09:48:48 65 [in_i] [facility] C ommunity Health weight percentile 2019-09-13 09:48:48 80 Leg [facility] Health height percentile 2019-09-13 09:48:48 61 Leg [facility] temperature site 2019-09-13 09:48:48 oral Lega [facility] Health Body Mass Index 2019-09-13 09:48:48 24.88 kg/m2 [facility] Health BMI (body mass 2019-09-13 09:48:48 79 % [facility] index) percentile [facility] site 2019-09-13 09:48:48 oral Lega [facility] Health oxygen saturation, 2019-08-23 09:38:39 98 /min [facility] oximetry Health blood pressure, 2019-08-23 09:38:39 78 mm[Hg] [facility] diastolic Health blood pressure, 2019-08-23 09:38:39 133 mm[Hg] [facility] systolic Health pulse rate 2019-08-23 09:38:39 82 /min [facility] temperature E&M 2019-08-23 09:38:39 98.8 [degF] [facility] Health height in 2019-08-23 09:38:39 165.10 cm [facility] centimeters E&M Health weight E&M 2019-08-23 09:38:39 146 [lb_av] [facility] weight in kilograms 2019-08-23 09:38:39 66.36 kg L [facility] E& Health height percentile 2019-08-23 09:38:39 61 [facility] weight percentile 2019-08-23 09:38:39 78 Leg [facility] temperature site 2019-08-23 09:38:39 oral Lega [facility] BMI (body mass 2019-08-23 09:38:39 76 % [facility] percentile Health Body Mass Index 2019-08-23 09:38:39 24.38 kg/m2 [facility] (Ratio) [facility] temperature site 2019-08-23 09:38:39 oral Lega [facility] Procedures Procedure Date / Time Performing Clinician Source Performed Both Nutrition / 2022-08-10 15:12:18 Kady Joyner may [facility] Health (Obese) Most recent HbA1c is 2022-08-10 15:12:18 Kady Joyner [facility] less than 7.0% Health Venipuncture 2022-07-10 12:00:57 Kady Joyner [facility] Health Venipuncture 2021-08-06 11:18:00 Kady Joyner [facility] Venipuncture 2021-07-27 18:06:39 Kady Joyner [facility] Venipuncture 2021-07-23 16:58:49 Kady Joyner [facility] CT ABDOMEN PELVIS W 2021-05-29 03:06:05 Zane Farnsworth [facility] URINALYSIS 2021-05-29 02:12:00 Zane Farnsworth [facility] TEST, SERUM 2021-05-29 01:23:00 Zane Farnsworth [facility] LIPASE 2021-05-29 01:02:00 Zane Farnsworth [facility] COMP. METABOLIC PANEL 2021-05-29 01:02:00 Zane Farnsworth [facility] ([id number]) [facility] CBC WITH DIFF 2021-05-29 01:02:00 Zane Farnsworth [facility] CONSENT/REFUSAL FOR 2021-05-29 00:13:46 Doctor Unassigned, No Un [facility] DIAGNOSIS AND TREATMENT Name Medical Branch Both Nutrition / 2021-01-15 12:15:36 Kady Joyner Comm unity [facility] (Obese) Both Nutrition / 2020-08-28 14:16:36 Kady Joyner Comm unity [facility] (Obese) Vaccines Ordered - Print 2020-08-28 14:11:39 Kady Joyner [facility] Consent/Declination Health Forms Both Nutrition / 2020-01-17 09:56:13 Kady Joyner Comm unity [facility] (Obese) Health 2019-12-06 14:46:42 Provider, Public [facility] Comm unity Education/Supportive Health Services Health Counseling Vaccines Ordered - Print 2019-12-06 11:03:29 Kady Joyner [facility] Consent/Declination Health Forms Both Nutrition / 2019-12-06 10:59:52 Kady Joyner Comm unity Exercise Counseling Health (Obese) First Vx - Ix admin via 2019-11-15 10:10:41 Amandeep Galvez Community ID IM or jet injects Health without counseling by physician Magno 9 Intramuscular 2019-11-15 10:10:41 Amandeep Galvez Venkat agudelo [facility] Suspension Health Vaccines Ordered - Print 2019-11-15 10:01:30 Amandeep Galvez Venkat agudelo [facility] Consent/Declination Health Forms Health 2019-10-25 13:51:58 Provider, Public [facility] Education/Supportive Health Services Health Counseling Health 2019-10-25 12:21:46 Provider, Public [facility] unity Education/Supportive Health Services Health Counseling Vaccines Ordered - Print 2019-10-25 10:27:42 Kady Joynerbella [facility] Consent/Declination Health Forms Health 2019-10-18 12:36:56 Provider, Public [facility] unity Education/Supportive Health Services Health Counseling First Vx - Ix admin via 2019-09-13 16:51:20 Kady Joyner [facility] ID IM or jet injects Health without counseling by physician Gardasil 9 Intramuscular 2019-09-13 16:51:20 Kady Joyner [facility] Suspension [facility] Health 2019-09-13 16:06:36 Provider, Public [facility] unity Education/Supportive Health Services Health Counseling Vaccines Ordered - Print 2019-09-13 10:52:17 Kady Joyner [facility] Consent/Declination Health [facility] Health 2019-08-23 12:12:31 Provider, Public [facility] unity Education/Supportive Health Services Health Counseling Gender Care Navigation 2019-08-23 09:43:19 Kady Joyner [facility] Health Venipuncture 2019-08-23 09:42:25 Kady Joyner [facility] Plan of Care Planned Activity Planned Date Details Comments Source Future Scheduled 2022-11-13 INFLUENZA VACCINE [facility] Test 13:27:57 [code = INFLUENZA VACCINE] Future Scheduled 2022-11-13 COVID-19 VACCINE (#1) [facility] Hospital Test 13:27:57 [code = COVID-19 VACCINE (#1)] Future Scheduled 2022-11-13 [facility] Test 13:27:57 Chlamydia trachomatis (procedure) [code = 757919219] Future Scheduled 2022-11-13 [facility] Test 13:27:57 malignant neoplasm of cervix (procedure) [code = 200683179] Encounters Start End Encounter Admission Attending Care Care Encounter Source Date/Time Date/Time Type Type Clinicians Facility Department ID 2022-10-18 Outpatient [email or web address] [facility] [id number] Legacy 07:35:02 [id number] [facility] 2022-08-11 Outpatient [email or web address] [facility] [id number] Legacy 05:06:04 [id number] [facility] 2022-08-07 Outpatient [email or web address] [facility] [id number] Legacy 13:19:03 [id number] [facility] 2022-08-10 2022-08-10 In-person Kady Joyner [facility] Adult [id number] Legacy 00:00:00 00:00:00 encounter Busby, Sasha Medicine 21 [id number] [facility] 2022-08-10 2022-08-10 In-person Kady Joyner [facility] Adult Encounter/ Legacy 00:00:00 00:00:00 encounter Busby, Sasha Medicine 19 [id number] [facility] [id number] [facility] 2021-05-28 2021-05-28 Emergency [facility] [id number] [facility] 19:39:00 23:39:00 [id number] [id number] [address] 2021-05-28 2021-05-28 Emergency X [facility] ERT [id number] Univers 19:11:00 19:11:00 [facility] 2021-05-01 2021-05-02 Inpatient EM Mike HCAKW OBSE [id number] [facility] 03:02:00 13:24:00 Gail, 19 [facility] 2021-01-15 2021-01-15 In-person Kady Joyner [facility] Adult [id number] Legacy 00:00:00 00:00:00 encounter Lila Doss Medicine [id number] [facility] 2021-01-15 2021-01-15 Office Kady Joyner [facility] Enc ounter/ Legacy 00:00:00 00:00:00 Visit Lila Doss [id number] Communi 781692 ty Health 2020-11-30 2020-11-30 Office NEETA Doss Encounter/ [facility] 00:00:00 00:00:00 Visit Lila [id number] Com mansi 497803 ty Health 2020-10-02 2020-10-02 Office NEETA Acosta Encounter/ [facility] 00:00:00 00:00:00 Visit Lily [id number] Com mansi 832909 ty Health 2020-10-02 2020-10-02 Office NEETA Acosta Encounter/ [facility] 00:00:00 00:00:00 Visit Lily [id number] Com mansi 281823 ty Health 2020-08-28 2020-08-28 Office NEETA Joyner Encounter/ [facility] 00:00:00 00:00:00 Visit Kady [id number] Com mansi 861739 ty Health 2020-08-28 2020-08-28 Office NEETA Joyner Encounter/ [facility] 00:00:00 00:00:00 Visit Kady [id number] Com mansi 399236 ty Health 2020-08-28 2020-08-28 Office Kady Joyner Enc ounter/ Legacy 00:00:00 00:00:00 Visit Lila Doss [id number] Communi 107022 ty Health 2020-08-28 2020-08-28 Office NEETA Joyner Encounter/ Legacy 00:00:00 00:00:00 Visit Kady [id number] Com mansi 925394 ty Health 2020-08-28 2020-08-28 In-person Kady Joyner [facility] Adult [id number] Legacy 00:00:00 00:00:00 encounter Lila Doss Medicine 27721 Communi ty Health 2020-08-19 2020-08-19 Office NEETA Yoo Encounter/ Legacy 00:00:00 00:00:00 Visit Christine [id number] Com mansi 213214 ty Health 2020-08-18 2020-08-18 Office NEETA Joyner Encounter/ Legacy 00:00:00 00:00:00 Visit Kady [id number] Com mansi 420384 ty Health 2020-08-14 2020-08-14 Office Kady Joyner [facility] Enc ounter/ Legacy 00:00:00 00:00:00 Visit Christine Yoo [id number] Communi 246108 ty Health 2020-06-05 2020-06-05 Office NEETA Joyner Encounter/ Legacy 00:00:00 00:00:00 Visit Kady [id number] Com mansi 288465 ty Health 2020-06-05 2020-06-05 [facility] Legacy 00:00:00 00:00:00 Visit Lila Doss [id number] Communi 162535 Health 2020-06-05 2020-06-05 In-person Kady Joyner [facility] Adult [id number] Legacy 00:00:00 00:00:00 encounter Lila Doss Medicine 89673 Communi ty Health 2020-05-26 2020-05-26 [facility]co unter/ Legacy 00:00:00 00:00:00 Visit Kady Joyner [id number] Communi 632848 ty Health 2020-05-22 2020-05-22 [facility]/ Legacy 00:00:00 00:00:00 Visit Lila Doss [id number] Communi 418502 ty Health 2020-04-24 2020-04-24 Office NEETA Joyner [facility] Encounter/ Legacy 00:00:00 00:00:00 Visit Kady [id number] Com mansi 986673 ty Health 2020-04-24 2020-04-24 Office Kady Joyner [facility] Enc ounter/ Legacy 00:00:00 00:00:00 Visit Lila Doss [id number] Communi 550133 ty Health 2020-04-24 2020-04-24 In-person Kady Joyner [facility] Adult [id number] Legacy 00:00:00 00:00:00 encounter Lila Doss Medicine 25400 Communi ty Health 2020-04-10 2020-04-10 Office NEETA Yoo Encounter/ Legacy 00:00:00 00:00:00 Visit Christine [id number] Com mansi 129344 ty Health 2020-04-01 2020-04-01 Office NEETA Doss [facility] Encounter/ Legacy 00:00:00 00:00:00 Visit Lila [id number] Com mansi 367557 ty Health 2020-03-30 2020-03-30 Office NEETA Joyner [facility] Encounter/ Legacy 00:00:00 00:00:00 Visit Kady [id number] Com mansi 860079 ty Health 2020-03-27 2020-03-27 Office Kady Joyner [facility] Enc ounter/ Legacy 00:00:00 00:00:00 Visit Lila Doss [id number] Communi 148190 ty Health 2020-02-28 2020-02-28 Office NEETA Joyner Encounter/ Legacy 00:00:00 00:00:00 Visit Kady [id number] Com mansi 647325 ty Health 2020-02-28 2020-02-28 [facility]/ Legacy 00:00:00 00:00:00 Visit Virginie Kevin [id number] Communi 268608 ty Health 2020-02-28 2020-02-28 Office NEETA Joyner [facility] Encounter/ Legacy 00:00:00 00:00:00 Visit Kady [id number] Com mansi 594232 ty Health 2020-02-28 2020-02-28 In-person [facility] Adult [id number] Legacy 00:00:00 00:00:00 encounter Virginie Kevin Medicine 0052 0 Communi ty Health 2020-02-19 2020-02-19 Office NEETA Doss [facility] Encounter/ Legacy 00:00:00 00:00:00 Visit Lila [id number] Com mansi 180326 ty Health 2020-02-18 2020-02-18 Office NEETA Joyner Encounter/ Legacy 00:00:00 00:00:00 Visit Kady [id number] Com mansi 544729 ty Health 2020-02-14 2020-02-14 Office Kady Joyner [facility] Enc ounter/ Legacy 00:00:00 00:00:00 Visit Lila Doss [id number] Communi 409689 ty Health 2020-01-17 2020-01-17 Office NEETA Joyner Encounter/ Legacy 00:00:00 00:00:00 Visit Kady [id number] Com mnasi 806395 ty Health 2020-01-17 2020-01-17 Office Kady Joyner [facility] Enc ounter/ Legacy 00:00:00 00:00:00 Visit Lila Doss [id number] Communi 369151 ty Health 2020-01-17 2020-01-17 In-person Kady Joyner [facility] Adult [id number] Legacy 00:00:00 00:00:00 encounter Lila Doss Medicine 12981 Communi ty Health 2020-01-05 2020-01-05 Office NEETA Yoo [facility] Encounter/ Legacy 00:00:00 00:00:00 Visit Christine [id number] Com mansi 570719 ty Health 2020-01-05 2020-01-05 Office NEETA Joyner Encounter/ Legacy 00:00:00 00:00:00 Visit Kady [id number] Com mansi 272625 ty Health 2020-01-03 2020-01-03 [facility]/ Legacy 00:00:00 00:00:00 Visit Christine Yoo [id number] Communi 982871 ty Health 2019-12-06 2019-12-06 Office NEETA Joyner Encounter/ Legacy 00:00:00 00:00:00 Visit Kady [id number] Com mansi 849583 ty Health 2019-12-06 2019-12-06 Office Provider, Public Health Services [facility] Encounter/ Legacy 00:00:00 00:00:00 Visit Collin Gimenez [id number] Communi 733478 ty Health 2019-12-06 2019-12-06 Office NEETA Joyner [facility] Encounter/ Legacy 00:00:00 00:00:00 Visit Kady [id number] Com mansi 465713 ty Health 2019-12-06 2019-12-06 Office NEETA Joyner [facility] Encounter/ Legacy 00:00:00 00:00:00 Visit Kady [id number] Com mansi 123635 ty Health 2019-12-06 2019-12-06 Office Kady Joyner [facility] Enc ounter/ Legacy 00:00:00 00:00:00 Visit Lila Doss [id number] Communi 961448 ty Health 2019-12-06 2019-12-06 In-person Kady Joyner [facility] Adult [id number] Legacy 00:00:00 00:00:00 encounter Lila Doss Medicine 25839 Communi ty Health 2019-11-27 2019-11-27 Office NEETA Doss [facility] Encounter/ Legacy 00:00:00 00:00:00 Visit Lila [id number] Com mansi 198315 ty Health 2019-11-26 2019-11-26 Office NEETA Joyner Encounter/ Legacy 00:00:00 00:00:00 Visit Kady [id number] Com mansi 987321 ty Health 2019-11-22 2019-11-22 Office Kady Joyner [facility] Enc ounter/ Legacy 00:00:00 00:00:00 Visit Lila Doss [id number] Communi 105897 ty Health 2019-11-15 2019-11-15 Office NEETA Clinton [facility] Encounte r/ Legacy 00:00:00 00:00:00 Visit Malgorzata [id number] Com mansi 997015 ty Health 2019-11-15 2019-11-15 [facility]/ Legacy 00:00:00 00:00:00 Visit Malgorzata Clinton [id number] Communi 083400 ty Health 2019-10-25 2019-10-25 Office NEETA Joyner [facility] Encounter/ Legacy 00:00:00 00:00:00 Visit Kady [id number] Com mansi 415618 ty Health 2019-10-25 2019-10-25 Office NEETA Joyner Encounter/ Legacy 00:00:00 00:00:00 Visit Kady [id number] Com mansi 841148 ty Health 2019-10-25 2019-10-25 Office Provider, Public Health Services [facility] Encounter/ Legacy 00:00:00 00:00:00 Visit Collin Gimenez [id number] Communi 643497 ty Health 2019-10-25 2019-10-25 Office Provider, Public Health Services [facility] Encounter/ Legacy 00:00:00 00:00:00 Visit Cresenciotonja Rick [id number] Communi 454934 ty Health 2019-10-25 2019-10-25 Office NEETA Joyner [facility] Encounter/ Legacy 00:00:00 00:00:00 Visit Kady [id number] Com mansi 197063 ty Health 2019-10-25 2019-10-25 Office NEETA Joyner [facility] Encounter/ Legacy 00:00:00 00:00:00 Visit Kady [id number] Com mansi 276026 ty Health 2019-10-25 2019-10-25 [facility]/ Legacy 00:00:00 00:00:00 Visit Lila Doss [id number] Communi 272017 ty Health 2019-10-25 2019-10-25 In-person Kady Joyner [facility] Adult [id number] Legacy 00:00:00 00:00:00 encounter Lila Doss Medicine 18783 Communi ty Health 2019-10-23 2019-10-23 [facility] En[facility]/ Legacy 00:00:00 00:00:00 Visit Lila [id number] Com mansi 218110 ty Health 2019-10-20 2019-10-20 Office NEETA Joyner [facility] Encounter/ Legacy 00:00:00 00:00:00 Visit Kady [id number] Com mansi 016047 ty Health 2019-10-18 2019-10-18 Office Kady Joyner [facility] Enc ounter/ Legacy 00:00:00 00:00:00 Visit Lila Doss [id number] Communi 194609 ty Health 2019-10-18 2019-10-18 Office NEETA Joyner [facility] Encounter/ Legacy 00:00:00 00:00:00 Visit Kady [id number] Com mansi 750576 ty Health 2019-10-18 2019-10-18 Office Provider, Public Health Services [facility] Encounter/ Legacy 00:00:00 00:00:00 Visit Collin Gimenez [id number] Communi 931890 ty Health 2019-10-18 2019-10-18 Office Ar [facility] Encounter/ Legacy 00:00:00 00:00:00 Visit Kady [id number] Com mansi 178325 ty Health 2019-10-18 2019-10-18 [facility]/ Legacy 00:00:00 00:00:00 Visit Aracely Fritz [id number] Lila Oconnor 730369 ty Health 2019-10-18 2019-10-18 In-person Kady Joyner [facility] Adult [id number] Legacy 00:00:00 00:00:00 encounter Aracely Fritz Medicine 001 08 Lila Oconnor ty Health 2019-10-17 2019-10-17 Office [facility] Encounte r/ Legacy 00:00:00 00:00:00 Visit Oxana [id number] Com mansi 302104 ty Health 2019-09-14 2019-09-14 Office Ar [facility] Encounter/ Legacy 00:00:00 00:00:00 Visit Kady [id number] Com mansi 232989 ty Health 2019-09-13 2019-09-13 Office Ar [facility] Encounter/ Legacy 00:00:00 00:00:00 Visit Kady [id number] Com mansi 144164 ty Health 2019-09-13 2019-09-13 Office Ar [facility] Encounter/ Legacy 00:00:00 00:00:00 Visit Kady [id number] Com mansi 817445 ty Health 2019-09-13 2019-09-13 Office Ar [facility] Encounter/ Legacy 00:00:00 00:00:00 Visit Kady [id number] Com mansi 535640 ty Health 2019-09-13 2019-09-13 Office Provider, Public Health Services [facility] Encounter/ Legacy 00:00:00 00:00:00 Visit Collin Gimenez [id number] Communi 793351 ty Health 2019-09-13 2019-09-13 Office Ar [facility] Encounter/ Legacy 00:00:00 00:00:00 Visit Kady [id number] Com manis 225642 ty Health 2019-09-13 2019-09-13 Office NEETA Joyner [facility] Encounter/ Legacy 00:00:00 00:00:00 Visit Kady [id number] Com mansi 277556 ty Health 2019-09-13 2019-09-13 Office NEETA Joyner [facility] Encounter/ Legacy 00:00:00 00:00:00 Visit Kady [id number] Com mansi 058199 ty Health 2019-09-13 2019-09-13 Office NEETA Doss [facility] Encounter/ Legacy 00:00:00 00:00:00 Visit Lila [id number] Com mansi 047387 ty Health 2019-09-13 2019-09-13 Office NEETA Doss [facility] Encounter/ Legacy 00:00:00 00:00:00 Visit Lila [id number] Com mansi 885190 ty Health 2019-09-13 2019-09-13 Office Kady Joyner [facility] Enc ounter/ Legacy 00:00:00 00:00:00 Visit Lila Doss [id number] Communi 493738 ty Health 2019-09-13 2019-09-13 In-person Kady Joyner [facility] Adult [id number] Legacy 00:00:00 00:00:00 encounter Lila Doss Medicine 63933 Communi ty Health 2019-08-28 2019-08-28 Office NEETA Doss [facility] Encounter/ Legacy 00:00:00 00:00:00 Visit Lila [id number] Com mansi 529266 ty Health 2019-08-28 2019-08-28 Office NEETA Joyner Encounter/ Legacy 00:00:00 00:00:00 Visit Kady [id number] Com mansi 560513 ty Health 2019-08-25 2019-08-25 Office [facility] Enco unter/ Legacy 00:00:00 00:00:00 Visit Kady Joyner [id number] Communi 073761 ty Health 2019-08-24 2019-08-24 Office NEETA Joyner Encounter/ Legacy 00:00:00 00:00:00 Visit Kady [id number] Com mansi 135310 ty Health 2019-08-23 2019-08-23 Office Kady Joyner [facility] Enc ounter/ Legacy 00:00:00 00:00:00 Visit Lila Doss [id number] [facility] 064188 ty Health 2019-08-23 2019-08-23 Office Kady Joyner [facility] Enc ounter/ Legacy 00:00:00 00:00:00 Visit Christine Yoo [id number] [facility] 099430 ty Health 2019-08-23 2019-08-23 Office Provider, [facility] Services [facility] Encounter/ Legacy 00:00:00 00:00:00 Visit Collin Gimenez [id number] [facility] 993560 ty Health 2019-08-23 2019-08-23 Office Phong [facility] Encounte r/ Legacy 00:00:00 00:00:00 Visit Kalen [id number] Com mansi 066466 ty Health 2019-08-23 2019-08-23 Office Phong [facility] Encounte r/ Legacy 00:00:00 00:00:00 Visit Kalen [id number] Com mansi 042936 ty Health 2019-08-23 2019-08-23 Office [facility] En[facility]/ Legacy 00:00:00 00:00:00 Visit Kady [id number] Com mansi 990365 ty Health 2019-08-23 2019-08-23 Office Kady Joyner [facility] Enc ounter/ Legacy 00:00:00 00:00:00 Visit Collin Gimenez [id number] [facility] Lila Doss 627910 ty Health 2019-08-23 2019-08-23 In-person Kady Joyner [facility] Adult [id number] Legacy 00:00:00 00:00:00 encounter Collin Gimenez Medicine 14763 Lila Oconnor ty Health 2018-09-11 2018-09-11 Emergency E [facility] [id number] [facility] 00:21:00 03:08:00 [facility] 2018-05-02 2018-05-02 Office Ar [facility] Encounter/ Legacy 00:00:00 00:00:00 Visit Kady [id number] Com mansi 209208 Health Results Test Description Test Time Test Comments Results Result Comments Source testosterone, total 2022-07-15 00:00:00 Test Item Value Reference Range Interpretation Comme nts testosterone, total (test code = 2986-8) 335 ng/dL 2-45 [facility]-hydroxy, [id number] 00:00:00 Test Item Value Reference Range Interpretation Comments vitamin D 25-hydroxy, serum (test 19 ng/mL 30-100 L code = 11747-7) [facility] as percent of blood [id number] 00:00:00 Test Item Value Reference Range Interpretation Comments basophils as percent of blood 0.7 % N leukocytes (test code = 707-0) [facility] as percent of blood [id number] 00:00:00 Test Item Value Reference Range Interpretation Comments eosinophils as percent of blood 2.0 % N leukocytes (test code = 714-6) [facility] as percent of blood [id number] 00:00:00 Test Item Value Reference Range Interpretation Comments monocytes as percent of blood 8.0 % N leukocytes (test code = 5905-5) [facility] percent of blood [id number] 00:00:00 Test Item Value Reference Range Interpretation Comments lymphocytes as percent of blood 34.6 % N leukocytes (test code = 736-9) [facility] as percent of blood [id number] 00:00:00 Test Item Value Reference Range Interpretation Comments neutrophils as percent of blood 54.7 % N leukocytes (test code = 770-8) [facility] count, [id number] 00:00:00 Test Item Value Reference Range Interpretation Comments basophil count, absolute (test 54 cells/uL 0-200 N code = 68954-5) [facility] Eosinophil [id number] 00:00:00 Test Item Value Reference Range Interpretation Comments Absolute Eosinophil count (test 154 cells/mcL 15-500 N code = 87059-2) [facility] Monocyte [id number] 00:00:00 Test Item Value Reference Range Interpretation Comments Absolute Monocyte count (test 616 cells/mcL 200-950 N code = 38974-8) [facility] Center[facility], [id number] 00:00:00 Test Item Value Reference Range Interpretation Comments lymphocytes, absolute (test 2664 CELLS/UL 850-3900 N code = 38113-2) [facility] Neutrophil [id number] 00:00:00 Test Item Value Reference Range Interpretation Comments Absolute Neutrophil count 4212 cells/mcL 1514-3353 N (test code = 70989-8) [facility] [id number] 00:00:00 Test Item Value Reference Range Interpretation Comments mean platelet volume (test code = 11.2 fL 7.5-12.5 N 776-5) [facility] Centerplatelet [id number] 00:00:00 Test Item Value Reference Range Interpretation Comments platelet count (test code = 210 THOUSAND/UL 140-400 N 777-3) [facility] Centerred blood cell distribution [id number] 00:00:00 Test Item Value Reference Range Interpretation Comments red blood cell distribution width 13.5 % 11.0-15.0 N (test code = 788-0) [facility] corpuscular hemoglobin concentration, [id number] 00:00:00 Test Item Value Reference Range Interpretation Comments mean corpuscular hemoglobin 33.7 G/DL 32.0-36.0 N concentration, RBC (test code = 786-4) [facility] corpuscular hemoglobin, [id number] 00:00:00 Test Item Value Reference Range Interpretation Comments mean corpuscular hemoglobin, RBC 31.0 pg 27.0-33.0 N (test code = 785-6) [facility] corpuscular volume, [id number] 00:00:00 Test Item Value Reference Range Interpretation Comments mean corpuscular volume, RBC (test 92.0 fL 80.0-100.0 N code = 787-2) [facility] Centerhematocrit, [id number] 00:00:00 Test Item Value Reference Range Interpretation Comments hematocrit, blood (test code = 4544-3) 46.0 % 35.0-45.0 H [facility] Centerhemoglobin, [id number] 00:00:00 Test Item Value Reference Range Interpretation Comments hemoglobin, blood (test code = 15.5 g/dL 11.7-15.5 N 718-7) [facility] Centererythrocyte (RBC) [id number] 00:00:00 Test Item Value Reference Range Interpretation Comments erythrocyte (RBC) count (test 5.00 MILLION/UL 3.80-5.10 N code = 789-8) [facility] Centerleukocyte count, [id number] 00:00:00 Test Item Value Reference Range Interpretation Comments leukocyte count, blood (test 7.7 THOUSAND/UL 3.8-10.8 N code = 6690-2) [facility] Centeralanine aminotransferase (SGPT), [id number] 00:00:00 Test Item Value Reference Range Interpretation Comments alanine aminotransferase (SGPT), serum 19 1/L 6-29 N (test code = 1742-6) [facility] Centeraspartate aminotransferase (SGOT), [id number] 00:00:00 Test Item Value Reference Range Interpretation Comments aspartate aminotransferase (SGOT), 17 1/L 10-30 N serum (test code = 1920-8) [facility] Centeralkaline phosphatase, [id number] 00:00:00 Test Item Value Reference Range Interpretation Comments alkaline phosphatase, serum (test code 55 1/L 31-125 N = 1783-0) [facility] Centerbilirubin, serum, [id number] 00:00:00 Test Item Value Reference Range Interpretation Comments bilirubin, serum, total (test code 0.6 mg/dL 0.2-1.2 N = 1975-2) [facility] Centeralbumin/globulin ratio, [id number] 00:00:00 Test Item Value Reference Range Interpretation Comments albumin/globulin ratio, serum 2.2 (calc) 1.0-2.5 N (test code = 1759-0) [facility] Centerglobulins, serum, [id number] 00:00:00 Test Item Value Reference Range Interpretation Comments globulins, serum, total (test 2.2 G/DL (CALC) 1.9-3.7 N code = 2336-6) [facility] Centeralbumin, [id number] 00:00:00 Test Item Value Reference Range Interpretation Comments albumin, serum (test code = 1751-7) 4.9 g/dL 3.6-5.1 N [facility] Centerprotein, total, [id number] 00:00:00 Test Item Value Reference Range Interpretation Comments protein, total, serum (test code = 7.1 g/dL 6.1-8.1 N 2885-2) [facility] Centercalcium, [id number] 00:00:00 Test Item Value Reference Range Interpretation Comments calcium, serum (test code = 10.1 mg/dL 8.6-10.2 N 1999-8) [facility] Centercarbon dioxide, venous [id number] 00:00:00 Test Item Value Reference Range Interpretation Comments carbon dioxide, venous blood (test 30 mmol/L 20-32 N code = 2026-1) [facility] Centerchloride, [id number] 00:00:00 Test Item Value Reference Range Interpretation Comments chloride, serum (test code = 105 mmol/L 98-110 N 2074-0) [facility] Centerpotassium, [id number] 00:00:00 Test Item Value Reference Range Interpretation Comments potassium, serum (test code = 4.3 mmol/L 3.5-5.3 N 2823-3) [facility] Centersodium, [id number] 00:00:00 Test Item Value Reference Range Interpretation Comments sodium, serum (test code = 2951-2) 140 mmol/L 135-146 N [facility] Centerurea nitrogen/creatinine ratio, [id number] 00:00:00 Test Item Value Reference Range Interpretation Comments urea NOT APPLICABLE (calc) 6-22 nitrogen/creatinine ratio, serum (test code = 3097-3) [facility] CenterEstimated Glomerular Filtration Rate (calc)2022-07-15 00:00:00 Test Item Value Reference Range Interpretation Comments Estimated Glomerular 87 See_Comment N [Autom ated message] Filtration Rate mL/min/{1.73 The system w [facility] (calc) (test code = m2} generate d this 77852-2) result transmit janet reference range : > OR = 60. The reference range was not used to interpret this result as normal/abnormal . [facility] Centercreatinine, [id number] 00:00:00 Test Item Value Reference Range Interpretation Comments creatinine, serum (test code = 0.95 mg/dL 0.50-0.96 N 2160-0) [facility] Centerurea nitrogen, [id number] 00:00:00 Test Item Value Reference Range Interpretation Comments urea nitrogen, blood (test code = 13 mg/dL 7-25 N 3094-0) [facility] Centerblood glucose, [id number] 00:00:00 Test Item Value Reference Range Interpretation Comments blood glucose, random (test code = 82 mg/dL 65-99 N 2339-0) [facility] Centercholesterol, non-HDL, [id number] 00:00:00 Test Item Value Reference Range Interpretation Comments cholesterol, non-HDL, total 108 MG/DL (CALC) <130 N (test code = 07322) [facility] Centercholesterol/HDL ratio, serum, [id number] 00:00:00 Test Item Value Reference Range Interpretation Comments cholesterol/HDL ratio, serum, 2.7 (calc) <5.0 N percent (test code = 2404) [facility] CenterLDL cholesterol, [id number] 00:00:00 Test Item Value Reference Range Interpretation Comments LDL cholesterol, serum (test 94 MG/DL (CALC) N code = 2089-1) [facility] Centertriglyceride, serum, [id number] 00:00:00 Test Item Value Reference Range Interpretation Comments triglyceride, serum, fasting (test 58 mg/dL <150 N code = 2571-8) [facility] CenterHDL cholesterol, [id number] 00:00:00 Test Item Value Reference Range Interpretation Comments HDL cholesterol, 64 mg/dL See_Comment N [Automated message] The serum (test code = [facility] generated 9) this result tra nsmitted reference range : > OR = 50. The referen ce range was not used to interpret this result as normal/abnormal . [facility] Centercholesterol, [id number] 00:00:00 Test Item Value Reference Range Interpretation Comments cholesterol, serum (test code = 172 mg/dL <200 N 3-3) [facility] Centertestosterone, serum, [id number] 17:58:00 Test Item Value Reference Range Interpretation Comments testosterone, serum, free (test 21.9 pg/mL 0.0-4.2 H code = 2991-8) [facility] Centertestosterone, [id number] 17:58:00 Test Item Value Reference Range Interpretation Comments testosterone, total (test code = 932 ng/dL 13-71 H 2986-8) [facility] Centervitamin D 25-hydroxy, [id number] 17:13:00 Test Item Value Reference Range Interpretation Comments vitamin D 25-hydroxy, serum (test 21.7 ng/mL 30.0-100.0 L code = 22852-5) [facility] CenterLDL cholesterol, [id number] 17:13:00 Test Item Value Reference Range Interpretation Comments LDL cholesterol, serum (test code = 92 mg/dL 0-99 2088-1) [facility] Centervery low density xbsrmqptcvgf3714-28-25 17:13:00 Test Item Value Reference Range Interpretation Comments very low density lipoproteins (test 14 mg/dL 5-40 code = 1-7) [facility] CenterHDL cholesterol, [id number] 17:13:00 Test Item Value Reference Range Interpretation Comments HDL cholesterol, serum (test code = 56 mg/dL >39 2084-9) [facility] Centertriglyceride, serum, [id number] 17:13:00 Test Item Value Reference Range Interpretation Comments triglyceride, serum, fasting (test 74 mg/dL 0-149 code = 2571-8) [facility] Centercholesterol, [id number] 17:13:00 Test Item Value Reference Range Interpretation Comments cholesterol, serum (test code = 162 mg/dL 698-615 9206-3) [facility] Centeralanine aminotransferase (SGPT), [id number] 17:13:00 Test Item Value Reference Range Interpretation Comments alanine aminotransferase (SGPT), serum 9 1/L 0-32 (test code = 1742-6) [facility] Centeraspartate aminotransferase (SGOT), [id number] 17:13:00 Test Item Value Reference Range Interpretation Comments aspartate aminotransferase (SGOT), 17 1/L 0-40 serum (test code = 1920-8) [facility] Centeralkaline phosphatase, [id number] 17:13:00 Test Item Value Reference Range Interpretation Comments alkaline phosphatase, serum (test code 84 1/L 44-121 = 1783-0) [facility] Healthbilirubin, serum, [id number] 17:13:00 Test Item Value Reference Range Interpretation Comments bilirubin, serum, total (test code 0.4 mg/dL 0.0-1.2 = 1975-2) [facility] Healthalbumin/globulin ratio, [id number] 17:13:00 Test Item Value Reference Range Interpretation Comments albumin/globulin ratio, 2.6 (unknown unit) 1.2-2.2 H serum (test code = 1759-0) [facility] Healthglobulin, [id number] 17:13:00 Test Item Value Reference Range Interpretation Comments globulin, serum (test code 1.9 (unknown unit) 1.5-4.5 = 2336-6) [facility] Healthalbumin, [id number] 17:13:00 Test Item Value Reference Range Interpretation Comments albumin, serum (test code = 1751-7) 4.9 g/dL 3.9-5.0 [facility] Centerprotein, total, [id number] 17:13:00 Test Item Value Reference Range Interpretation Comments protein, total, serum (test code = 6.8 g/dL 6.0-8.5 2885-2) [facility] Centercalcium, [id number] 17:13:00 Test Item Value Reference Range Interpretation Comments calcium, serum (test code = 1999-8) 9.6 mg/dL 8.7-10.2 [facility] Centercarbon dioxide, venous [id number] 17:13:00 Test Item Value Reference Range Interpretation Comments carbon dioxide, venous blood (test 24 mmol/L 20-29 code = 7-1) [facility] Centerchloride, [id number] 17:13:00 Test Item Value Reference Range Interpretation Comments chloride, serum (test code = 102 mmol/L 96-106 5-0) [facility] Centerpotassium, [id number] 17:13:00 Test Item Value Reference Range Interpretation Comments potassium, serum (test code = 4.2 mmol/L 3.5-5.2 2823-3) [facility] Centersodium, [id number] 17:13:00 Test Item Value Reference Range Interpretation Comments sodium, serum (test code = 2951-2) 139 mmol/L 134-144 [facility] Centerurea nitrogen/creatinine ratio, [id number] 17:13:00 Test Item Value Reference Range Interpretation Comments urea nitrogen/creatinine 11 (unknown unit) 9-23 ratio, serum (test code = 3097-3) [facility] HealtheGFR if Lasukntf4561-21-26 17:13:00 Test Item Value Reference Range Interpretation Comments eGFR if 130 mL/min/{1.73 m2} >59 (test code = 14726-3) [facility] CenterEstimated Glomerular Filtration Rate (calc)2021-07-23 17:13:00 Test Item Value Reference Range Interpretation Comments Estimated Glomerular 112 mL/min/{1.73 m2} >59 Filtration Rate (calc) (test code = 80982-4) [facility] Centercreatinine, [id number] 17:13:00 Test Item Value Reference Range Interpretation Comments creatinine, serum (test code = 0.76 mg/dL 0.57-1.00 2160-0) [facility] Centerurea nitrogen, [id number] 17:13:00 Test Item Value Reference Range Interpretation Comments urea nitrogen, blood (test code = 8 mg/dL 6-20 3094-0) [facility] Centerblood glucose, [id number] 17:13:00 Test Item Value Reference Range Interpretation Comments blood glucose, random (test code = 89 mg/dL 65-99 2339-0) [facility] Centerimmature granulocytes, percentage of total cells, blood 2021-07-23 17:13:00 Test Item Value Reference Range Interpretation Comments immature granulocytes, percentage of 0 % total cells, blood (test code = 90597-6) [facility] Centerbasophil count, [id number] 17:13:00 Test Item Value Reference Range Interpretation Comments basophil count, absolute (test 0.0 x10E3/uL 0.0-0.2 code = 03419-5) [facility] CenterEosinophil Absolute [id number] 17:13:00 Test Item Value Reference Range Interpretation Comments Eosinophil Absolute Count (test 0.2 X10E3/UL 0.0-0.4 code = 59184-5) [facility] Healthmonocyte count, blood, [id number] 17:13:00 Test Item Value Reference Range Interpretation Comments monocyte count, blood, automated 0.8 X10E3/UL 0.1-0.9 (test code = 742-7) [facility] Centerlymphocyte count, blood, [id number] 17:13:00 Test Item Value Reference Range Interpretation Comments lymphocyte count, blood, 3.8 X10E3/UL 0.7-3.1 H automated (test code = 731-0) [facility] CenterAbsolute Qjmprsxkwij8717-17-73 17:13:00 Test Item Value Reference Range Interpretation Comments Absolute Neutrophils (test code 4.0 X10E3/UL 1.4-7.0 = 84514-9) [facility] Centerbasophils as percent of blood wbiljzxqap8841-75-25 17:13:00 Test Item Value Reference Range Interpretation Comments basophils as percent of blood 1 % leukocytes (test code = 707-0) [facility] Centereosinophils as percent of blood jyxubkrpxb7589-97-71 17:13:00 Test Item Value Reference Range Interpretation Comments eosinophils as percent of blood 2 % leukocytes (test code = 713-8) [facility] Healthmonocytes as percent of blood hyuauymbik8982-85-53 17:13:00 Test Item Value Reference Range Interpretation Comments monocytes as percent of blood 9 % leukocytes (test code = 5905-5) [facility] Centerlymphocytes as percent of blood rpacayiebg4018-74-72 17:13:00 Test Item Value Reference Range Interpretation Comments lymphocytes as percent of blood 43 % leukocytes (test code = 736-9) [facility] Centerneutrophils as percent of blood ncogstzyuh1536-01-76 17:13:00 Test Item Value Reference Range Interpretation Comments neutrophils as percent of blood 45 % leukocytes (test code = 770-8) [facility] Centerplatelet yjkwa8093-12-85 17:13:00 Test Item Value Reference Range Interpretation Comments platelet count (test code = 220 X10E3/UL 150-450 777-3) [facility] Centerred blood cell distribution [id number] 17:13:00 Test Item Value Reference Range Interpretation Comments red blood cell distribution width 13.7 % 11.7-15.4 (test code = 788-0) [facility] corpuscular hemoglobin concentration, [id number] 17:13:00 Test Item Value Reference Range Interpretation Comments mean corpuscular hemoglobin 32.8 G/DL 31.5-35.7 concentration, RBC (test code = 786-4) [facility] corpuscular hemoglobin, [id number] 17:13:00 Test Item Value Reference Range Interpretation Comments mean corpuscular hemoglobin, RBC 29.3 pg 26.6-33.0 (test code = 785-6) [facility] corpuscular volume, [id number] 17:13:00 Test Item Value Reference Range Interpretation Comments mean corpuscular volume, RBC (test code 89 fL 79-97 = 787-2) [facility] Centerhematocrit, [id number] 17:13:00 Test Item Value Reference Range Interpretation Comments hematocrit, blood (test code = 4544-3) 44.2 % 34.0-46.6 [facility] Centerhemoglobin, [id number] 17:13:00 Test Item Value Reference Range Interpretation Comments hemoglobin, blood (test code = 14.5 g/dL 11.1-15.9 718-7) [facility] Centererythrocyte (RBC) [id number] 17:13:00 Test Item Value Reference Range Interpretation Comments erythrocyte (RBC) count (test 4.95 X10E6/UL 3.77-5.28 code = 789-8) [facility] Centerleukocyte count, [id number] 17:13:00 Test Item Value Reference Range Interpretation Comments leukocyte count, blood (test 8.8 X10E3/UL 3.4-10.8 code = 6690-2) [facility] CenterPREGNANCY TEST, [id number] 02:45:33 Test Item Value Reference Range Interpretation Comments PREG SERUM (test code Negative = 0467034312) MENDEL (test code = MENDEL) Less than 10 IU/L. ?If low titer or ectopic is suspected, resubmit specimen in 48-72 hours. [facility] AreaUrinalysis2021-08-19 02:45:03 Test Item Value Reference Range Interpretation Comments APPEARANCE (test code = Hazy Clear A 8590668578) COLOR (test code = Yellow Yellow 8204600329) PH (test code = 4.8-8.0 A 3232042789) SP GRAVITY (test code = 1.003-1.030 3779804297) GLU U QUAL (test code = Normal Normal 2244693560) BLOOD (test code = Negative Negative 1745306460) KETONES (test code = 20 mg/dL Negative A 3685206443) PROTEIN (test code = 100 mg/dL Negative A 2887-8) UROBILIN (test code = Normal Normal 2646009608) BILIRUBIN (test code = Negative Negative 8760662043) NITRITE (test code = Negative Negative 4447082756) LEUK KELI (test code = 250/uL Negative A 0843444210) RBC/HPF (test code = See_Comment H [Autom ated message] 9716763519) The system [employer] generated this result transmit janet reference range : 0 - 3 HPF. The refe rence range was not u sed to interpret th is result as normal/abnormal . WBC/HPF (test code = See_Comment H [Autom ated message] 2344500606) The system [employer] generated this result transmit janet reference range : 0 - 5 HPF. The refe rence range was not u sed to interpret th is result as normal/abnormal . BACTERIA (test code = Few Negative A 2864427345) MUCOUS (test code = Marked Negative LPF A 4782256440) SQ EPITH (test code = HPF 8838103181) Lab Interpretation (test Abnormal code = 79237-0) [facility] AreaComplete Metabolic Gbgzi1699-51-11 01:46:47 Test Item Value Reference Range Interpretation Comments NA (test code = 139 mmol/L 135-145 9431313895) K (test code = 3.5 mmol/L 3.5-5.0 6837658704) CL (test code = 105 mmol/L 98-108 5668685717) CO2 TOTAL (test code = 20 mmol/L 23-31 L 8812147886) AGAP (test code = 2-16 3103475818) BUN (test code = 13 mg/dL 7-23 7934616636) GLUCOSE (test code = 136 mg/dL 70-110 H 9747453714) CREATININE (test code = 0.73 mg/dL 0.50-1.04 5246856093) TOTAL BILI (test code = 0.7 mg/dL 0.1-1.5 3044387058) CALCIUM (test code = 10.5 mg/dL 8.6-10.6 5579644293) T PROTEIN (test code = 8.5 g/dL 6.3-8.2 H 4325413990) ALBUMIN (test code = 5.4 g/dL 3.5-5.0 H 4127891535) ALK PHOS (test code = 107 U/L 34-122 8541911919) ALTv (test code = 18 U/L 5-35 2-6) AST(SGOT) (test code = 28 U/L 13-40 6503579075) eGFR (test code = mL/min/1.73m2 9798851785) MENDEL (test code = MENDEL) Association of [...] tests). Lab Interpretation Abnormal (test code = 37996-5) [facility] AreaLipase, [id number] 01:46:06 Test Item Value Reference Range Interpretation Comments LIPASE (test code = 9370215231) 107 U/L 0-220 Lab Interpretation (test code = Normal 44844-7) [facility] AreaCB with Vunhjtfqfvoc4787-91-96 01:23:24 Test Item Value Reference Range Interpretation Comments WBC (test code = See_Comment H [Automated 2890-2) message] The system which generated this result transmit janet reference range : 4.30 - 11.10 10*3/?L. The reference range was not used to interpret this result as normal/abnormal . RBC (test code = See_Comment [Automated 789-8) message] The system which generated this result [...] RDW-SD (test code = 42.2 fL 39.0-49.9 32018-9) RDW-CV (test code = 13.8 % 12.0-15.5 788-0) PLT (test code = See_Comment [Automated 777-3) message] The system which generated this result transmit janet reference range : 166 - 358 10*3/ ?L. The reference range was not u sed to interpret th is result as normal/abnormal . MPV (test code = 11.7 fL 9.5-12.9 54758-4) NRBC/100 WBC (test See_Comment [Automat ed code = 4859893722) message] The system which generated this result transmit janet reference range : 0.0 - 10.0 /100 WBCs. The reference range was not used to interpret this result as normal/abnormal . NRBC x10^3 (test code <0.01 See_Comment [Auto mated = 4495375786) message] The system which generated this result transmit janet reference range : 10*3/?L. The reference range was not used to interpret this result as normal/abnormal . GRAN MAT (NEUT) % 83.8 % (test code = 770-8) IMM GRAN % (test code 0.50 % = 9934010950) LYMPH % (test code = 10.4 % 736-9) MONO % (test code = 4.8 % 5905-5) EOS % (test code = 0.1 % 713-8) BASO % (test code = 0.4 % 706-2) GRAN MAT x10^3(ANC) 13.07 10*3/uL 1.88-7.09 H (test code = 9787673839) IMM GRAN x10^3 (test 0.08 10*3/uL 0.00-0.06 H code = 3988598121) LYMPH x10^3 (test code 1.63 10*3/uL 1.32-3.29 = 731-0) MONO x10^3 (test code 0.75 10*3/uL 0.33-0.92 = 742-7) EOS x10^3 (test code = <0.03 0.03-0.39 L 711-2) BASO x10^3 (test code 0.06 10*3/uL 0.01-0.07 = 704-7) Lab Interpretation Abnormal (test code = 19978-8) [facility] AreaUA RFLX MICR CULT IF [id number] 08:33:00 Test Item Value Reference Range Interpretation [...] HPF = WBCUR) PYURIA ABSENT URINE CULTURE N OT INDICATED [Automated message] The system which generated [...] srcSOURCE OF URINE: VOIDED- XR CHEST 1 [id number] 08:13:00 [facility] : 2000 Sex: F FAX: Kobe Frank MD [place]: [facility]: ADM FAX: Parisi,Emirlit Douglas Name: DENA SOLORIO [facility] : 2000 Age/S: 21/F [address] Unit #: [id number] Loc: C.[address] [place] [address] Phys: Peter Parisi Acct: [id number] Dis Date: Status: ADM IN PHONE #: [phone] Exam Date: 05/01/2021524 FAX #: [phone] Reason: sob EXAMS: CPT CODE: [id number] XR CHEST 1 V [id number] EXAM: - XR CHEST 1 V LOCATION: C3 HISTORY: sob COMPARISON: None available time of interpretation. FINDINGS: Single view of the chest. No i ndwelling lines or tubes. No pneumothorax. The lungs are clear without significant effusions. The mediastinal contours are unremarkable/unchanged. No acute osseous findings are present. IMPRESSION: No acute cardiopulmonary abnormality. No pneumoperitoneum. at 0813 Reported and signed by: Clive Luong MD CC: Luis Bullock MD; Peter Loya DO Technologist: RT Oumou (R) Trnscrd Date/Time/By: 05/01/2021 (0813) : By: SaigeHV2 PAGE 1 Signed Report FAX: Kobe Frank MD [place]: [facility]: ADM FAX: Parisi,Emirlit R2 --------- Name: DENA SOL[facility] : 2000 Age/S: [address] Unit #: [id number] Loc: C.[address] [place] [address] Phys: ParisiEmirbebomango R2 Acct: [id number] Dis Date: Status: ADM IN PHONE #: [phone] Exam Date: 524 FAX #: [phone] Reason: sob EXAMS: CPT CODE: [id number] XR CHEST 1 V 21756 (Continued) Orig Print D/T: S: 05/01/2021 (0816) PAGE 2 Signed Report- XR ABDOMEN 1 [id number] 08:11:00 [facility] 2000 Sex: F FAX: Kobe Frank MD [place]: St: ADM FAX: Hoang Valdes FAX: Yamini Holley MD R2 Name: DENA SOLOR[facility] : 2000 Age/S: 21/F [address] Unit #: [id number] Loc: C.[address] [place] [address] Phys: Yamini Holley MD R2 Acct: [id number] Dis Date: Status: ADM IN PHONE #: [phone] Exam Date: 539 FAX #: [phone] Reason: suspect perforated PUD, check air under diaphra EXAMS: CPT CODE:[id number] XR ABDOMEN 1 V 93616 EXAM: Abdomen 1 view LOCATION: C3 HISTORY: suspect perforated PUD, check air under diaphragm COMPARISON: None available time of interpretation. FINDINGS: Single frontal view of the abdomen. The bowel gas pattern is nonobstructive. No suspicious calcifications identified.No acute osseous findings. IMPRESSION: No morgan pneumoperitoneum. [...] 1 Signed Report FAX: Kobe Frank MD [place]: [place] [facility] [place] FAX: Hoang Valdes FAX: Yamini Holley MD R2 Name: DENA SOLORIO [facility] : 2000 Age/S: 21/F [address] Unit #: [id number] Loc: C.[address] [place] [address] Phys: Yamini Holley MD R2 Acct: [id number] Dis Date: Status: ADM IN PHONE #: [phone] Exam Date: 05/01/2021 0540 FAX #: [phone] Reason: suspect perforated PUD, check air under diaphra EXAMS: CPT CODE: [id number] XR ABDOMEN 1 V 15904 (Continued) Orig Print D/T: S: 05/01/2021 (0814) PAGE 2 Signed ReportCOMPREHENSIVE METABOLIC [id number] 05:21:00 Test Item Value Reference Range Interpretation [...] U/L 38-126 N (test code = ALKP) [id number] 05:21:00 Test Item Value Reference Range Interpretation Comments LIPASE (test code = LIP) 298 U/L 23-300 N [id number] 05:21:00 Test Item Value Reference Range Interpretation Comments MAGNESIUM (test code = MAG) 1.6 mg/dL 1.6-2.3 N LACTIC [id number] 05:10:00 Test Item Value Reference Range Interpretation Comments LACTIC ACID (test code = LACT) 0.7 mmol/L 0.7-2.0 N CBC W/AUTO [id number] 04:56:00 Test Item Value Reference Range Interpretation [...] 0.01 x10 3/uL 0.0-0.1 N testosterone, serum, [id number] 15:13:00 Test Item Value Reference Range Interpretation Comments testosterone, serum, free (test 12.7 pg/mL 0.0-4.2 H code = 2991-8) [facility], [id number] 15:13:00 Test Item Value Reference Range Interpretation Comments testosterone, total (test code = 673 ng/dL 13-71 H 2986-8) [facility] CenterLDL cholesterol, [id number] 15:13:00 Test Item Value Reference Range Interpretation Comments LDL cholesterol, serum (test code = 88 mg/dL 0-99 9-1) [facility] Centervery low density ygxhochowlfn5265-18-87 15:13:00 Test Item Value Reference Range Interpretation Comments very low density lipoproteins (test 11 mg/dL 5-40 code = 2091-7) [facility] CenterHDL cholesterol, [id number] 15:13:00 Test Item Value Reference Range Interpretation Comments HDL cholesterol, serum (test code = 53 mg/dL >39 5-9) [facility] Centertriglyceride, serum, [id number] 15:13:00 Test Item Value Reference Range Interpretation Comments triglyceride, serum, fasting (test 52 mg/dL 0-149 code = 2571-8) [facility] Centercholesterol, [id number] 15:13:00 Test Item Value Reference Range Interpretation Comments cholesterol, serum (test code = 152 mg/dL 783-045 2606-3) [facility] Centeralanine aminotransferase (SGPT), [id number] 15:13:00 Test Item Value Reference Range Interpretation Comments alanine aminotransferase (SGPT), serum 9 1/L 0-32 (test code = 1742-6) [facility] Centeraspartate aminotransferase (SGOT), [id number] 15:13:00 Test Item Value Reference Range Interpretation Comments aspartate aminotransferase (SGOT), 16 1/L 0-40 serum (test code = 1920-8) [facility] Centeralkaline phosphatase, [id number] 15:13:00 Test Item Value Reference Range Interpretation Comments alkaline phosphatase, serum (test 104 1/L 45-106 code = 1783-0) [facility], [id number] 15:13:00 Test Item Value Reference Range Interpretation Comments bilirubin, serum, total (test code 0.5 mg/dL 0.0-1.2 = 1974-2) [facility] Healthalbumin/globulin ratio, [id number] 15:13:00 Test Item Value Reference Range Interpretation Comments albumin/globulin ratio, 2.1 (unknown unit) 1.2-2.2 serum (test code = 1759-0) [facility] Healthglobulin, [id number] 15:13:00 Test Item Value Reference Range Interpretation Comments globulin, serum (test code 2.4 (unknown unit) 1.5-4.5 = 2336-6) [facility] Healthalbumin, [id number] 15:13:00 Test Item Value Reference Range Interpretation Comments albumin, serum (test code = 1751-7) 5.0 g/dL 3.9-5.0 [facility] Centerprotein, total, [id number] 15:13:00 Test Item Value Reference Range Interpretation Comments protein, total, serum (test code = 7.4 g/dL 6.0-8.5 2885-2) [facility] Healthcalcium, [id number] 15:13:00 Test Item Value Reference Range Interpretation Comments calcium, serum (test code = 10.0 mg/dL 8.7-10.2 1999-) [facility] Centercarbon dioxide, venous [id number] 15:13:00 Test Item Value Reference Range Interpretation Comments carbon dioxide, venous blood (test 23 mmol/L code = 2026-1) [facility] Healthchloride, [id number] 15:13:00 Test Item Value Reference Range Interpretation Comments chloride, serum (test code = 103 mmol/L 96-106 5-0) [facility] Centerpotassium, [id number] 15:13:00 Test Item Value Reference Range Interpretation Comments potassium, serum (test code = 4.5 mmol/L 3.5-5.2 2823-3) [facility] Centersodium, [id number] 15:13:00 Test Item Value Reference Range Interpretation Comments sodium, serum (test code = 2951-2) 140 mmol/L 134-144 [facility] Centerurea nitrogen/creatinine ratio, [id number] 15:13:00 Test Item Value Reference Range Interpretation Comments urea nitrogen/creatinine 10 (unknown unit) 9- ratio, serum (test code = 3097-3) [facility] HealtheGFR if Ixvigrzu1648-45-72 15:13:00 Test Item Value Reference Range Interpretation Comments eGFR if 117 mL/min/{1.73 m2} >59 (test code = 28957-9) [facility] CenterEstimated Glomerular Filtration Rate (calc)2021-04-02 15:13:00 Test Item Value Reference Range Interpretation Comments Estimated Glomerular 102 mL/min/{1.73 m2} >59 Filtration Rate (calc) (test code = 26852-3) [facility] Centercreatinine, [id number] 15:13:00 Test Item Value Reference Range Interpretation Comments creatinine, serum (test code = 0.83 mg/dL 0.57-1.00 2160-0) [facility] Centerurea nitrogen, [id number] 15:13:00 Test Item Value Reference Range Interpretation Comments urea nitrogen, blood (test code = 8 mg/dL 6-20 3094-0) [facility] Centerblood glucose, [id number] 15:13:00 Test Item Value Reference Range Interpretation Comments blood glucose, random (test code = 96 mg/dL 65-99 2339-0) [facility] Centerimmature granulocytes, percentage of total cells, blood 2021-04-02 15:13:00 Test Item Value Reference Range Interpretation Comments immature granulocytes, percentage of 0 % total cells, blood (test code = 63734-2) [facility] Centerbasophil count, omchtjdw3029-02-55 15:13:00 Test Item Value Reference Range Interpretation Comments basophil count, absolute (test 0.0 x10E3/uL 0.0-0.2 code = 39798-5) [facility] CenterEosinophil Absolute [id number] 15:13:00 Test Item Value Reference Range Interpretation Comments Eosinophil Absolute Count (test 0.2 X10E3/UL 0.0-0.4 code = 99083-0) [facility] Centermonocyte count, blood, vmvhwwhfg1810-12-88 15:13:00 Test Item Value Reference Range Interpretation Comments monocyte count, blood, automated 0.8 X10E3/UL 0.1-0.9 (test code = 742-7) [facility] Centerlymphocyte count, blood, ndndicwbu0933-33-88 15:13:00 Test Item Value Reference Range Interpretation Comments lymphocyte count, blood, 3.7 X10E3/UL 0.7-3.1 H automated (test code = 731-0) [facility] CenterAbsolute Mcmnyybonhb6969-95-36 15:13:00 Test Item Value Reference Range Interpretation Comments Absolute Neutrophils (test code 4.2 X10E3/UL 1.4-7.0 = 95560-1) [facility] Centerbasophils as percent of blood mqvbdnmvmd4096-29-83 15:13:00 Test Item Value Reference Range Interpretation Comments basophils as percent of blood 0 % leukocytes (test code = 707-0) [facility] Centereosinophils as percent of blood lnxqnsejjs1407-88-25 15:13:00 Test Item Value Reference Range Interpretation Comments eosinophils as percent of blood 2 % leukocytes (test code = 713-8) [facility] Centermonocytes as percent of blood gsgxeesgpy4688-04-91 15:13:00 Test Item Value Reference Range Interpretation Comments monocytes as percent of blood 9 % leukocytes (test code = 5905-5) [facility] Centerlymphocytes as percent of blood gtvrjijqpt5005-40-12 15:13:00 Test Item Value Reference Range Interpretation Comments lymphocytes as percent of blood 42 % leukocytes (test code = 736-9) [facility] Centerneutrophils as percent of blood eyzpwikhhx0845-79-03 15:13:00 Test Item Value Reference Range Interpretation Comments neutrophils as percent of blood 47 % leukocytes (test code = 770-8) [facility] Centerplatelet gogxk7456-21-92 15:13:00 Test Item Value Reference Range Interpretation Comments platelet count (test code = 205 X10E3/UL 150-450 777-3) [facility] Centerred blood cell distribution aazpb7930-15-48 15:13:00 Test Item Value Reference Range Interpretation Comments red blood cell distribution width 14.4 % 11.7-15.4 (test code = 788-0) [facility] Centermean corpuscular hemoglobin concentration, [id number] 15:13:00 Test Item Value Reference Range Interpretation Comments mean corpuscular hemoglobin 33.2 G/DL 31.5-35.7 concentration, RBC (test code = 786-4) [facility] Centermean corpuscular hemoglobin, [id number] 15:13:00 Test Item Value Reference Range Interpretation Comments mean corpuscular hemoglobin, RBC 27.9 pg 26.6-33.0 (test code = 785-6) [facility] Centeran corpuscular volume, [id number] 15:13:00 Test Item Value Reference Range Interpretation Comments mean corpuscular volume, RBC (test code 84 fL 79-97 = 787-2) [facility] Centerhematocrit, kzyhg3212-71-55 15:13:00 Test Item Value Reference Range Interpretation Comments hematocrit, blood (test code = 4544-3) 45.5 % 34.0-46.6 [facility] Centerhemoglobin, [id number] 15:13:00 Test Item Value Reference Range Interpretation Comments hemoglobin, blood (test code = 15.1 g/dL 11.1-15.9 718-7) [facility] Centererythrocyte (RBC) [id number] 15:13:00 Test Item Value Reference Range Interpretation Comments erythrocyte (RBC) count (test 5.42 X10E6/UL 3.77-5.28 H code = 789-8) [facility] Centerleukocyte count, [id number] 15:13:00 Test Item Value Reference Range Interpretation Comments leukocyte count, blood (test 8.9 X10E3/UL 3.4-10.8 code = 6690-2) [facility] Centerneutrophils as percent of blood twduezkmdb5819-98-60 13:06:00 Test Item Value Reference Range Interpretation Comments neutrophils as percent of blood 49 % leukocytes (test code = 770-8) [facility] Centerplatelet bpyqn5131-71-97 13:06:00 Test Item Value Reference Range Interpretation Comments platelet count (test code = 231 X10E3/UL 150-450 777-3) [facility] Centerred blood cell distribution wyzue2219-13-21 13:06:00 Test Item Value Reference Range Interpretation Comments red blood cell distribution width 14.1 % 11.7-15.4 (test code = 788-0) [facility] Centeran corpuscular hemoglobin concentration, [id number] 13:06:00 Test Item Value Reference Range Interpretation Comments mean corpuscular hemoglobin 30.8 G/DL 31.5-35.7 L concentration, RBC (test code = 786-4) [facility] Centermean corpuscular hemoglobin, [id number] 13:06:00 Test Item Value Reference Range Interpretation Comments mean corpuscular hemoglobin, RBC 25.5 pg 26.6-33.0 L (test code = 785-6) [facility] Centermean corpuscular volume, [id number] 13:06:00 Test Item Value Reference Range Interpretation Comments mean corpuscular volume, RBC (test code 83 fL 79-97 = 787-2) [facility] Centerhematocrit, [id number] 13:06:00 Test Item Value Reference Range Interpretation Comments hematocrit, blood (test code = 4544-3) 46.5 % 34.0-46.6 [facility] Centerhemoglobin, [id number] 13:06:00 Test Item Value Reference Range Interpretation Comments hemoglobin, blood (test code = 14.3 g/dL 11.1-15.9 718-7) [facility] Centererythrocyte (RBC) hdiio3766-28-48 13:06:00 Test Item Value Reference Range Interpretation Comments erythrocyte (RBC) count (test 5.61 X10E6/UL 3.77-5.28 H code = 789-8) [facility] Centerleukocyte count, [id number] 13:06:00 Test Item Value Reference Range Interpretation Comments leukocyte count, blood (test 8.8 X10E3/UL 3.4-10.8 code = 6690-2) [facility] Centervitamin D 25-hydroxy, [id number] 13:06:00 Test Item Value Reference Range Interpretation Comments vitamin D 25-hydroxy, serum (test 23.9 ng/mL 30.0-100.0 L code = 92574-3) [facility] Centertestosterone, serum, [id number] 13:06:00 Test Item Value Reference Range Interpretation Comments testosterone, serum, free (test 8.8 pg/mL 0.0-4.2 H code = 2991-8) [facility] Centertestosterone, qjaot7493-00-22 13:06:00 Test Item Value Reference Range Interpretation Comments testosterone, total (test code = 463 ng/dL 8-48 H 2986-8) [facility] CenterLDL cholesterol, [id number] 13:06:00 Test Item Value Reference Range Interpretation Comments LDL cholesterol, serum (test code = 104 mg/dL 0-99 H 2088-1) [facility] Centervery low density fxtkfuirjlqg5769-01-06 13:06:00 Test Item Value Reference Range Interpretation Comments very low density lipoproteins (test 11 mg/dL 5-40 code = 2091-7) [facility] CenterHDL cholesterol, [id number] 13:06:00 Test Item Value Reference Range Interpretation Comments HDL cholesterol, serum (test code = 64 mg/dL >39 2084-9) [facility] Centertriglyceride, serum, diezruv5394-88-62 13:06:00 Test Item Value Reference Range Interpretation Comments triglyceride, serum, fasting (test 54 mg/dL 0-149 code = 2571-8) [facility] Centercholesterol, mqjsp1822-06-91 13:06:00 Test Item Value Reference Range Interpretation Comments cholesterol, serum (test code = 179 mg/dL 547-162 7713-3) [facility] Centeralanine aminotransferase (SGPT), [id number] 13:06:00 Test Item Value Reference Range Interpretation Comments alanine aminotransferase (SGPT), serum 13 1/L 0-32 (test code = 1742-6) [facility] Centeraspartate aminotransferase (SGOT), pqmgg2673-42-59 13:06:00 Test Item Value Reference Range Interpretation Comments aspartate aminotransferase (SGOT), 20 1/L 0-40 serum (test code = 1920-8) [facility] Centeralkaline phosphatase, [id number] 13:06:00 Test Item Value Reference Range Interpretation Comments alkaline phosphatase, serum (test code 98 1/L 39-117 = 1783-0) [facility] Centerbilirubin, serum, [id number] 13:06:00 Test Item Value Reference Range Interpretation Comments bilirubin, serum, total (test code 0.3 mg/dL 0.0-1.2 = 1975-2) [facility] Healthalbumin/globulin ratio, [id number] 13:06:00 Test Item Value Reference Range Interpretation Comments albumin/globulin ratio, 2.0 (unknown unit) 1.2-2.2 serum (test code = 1759-0) [facility] Healthglobulin, qgoxj4528-22-42 13:06:00 Test Item Value Reference Range Interpretation Comments globulin, serum (test code 2.5 (unknown unit) 1.5-4.5 = 2336-6) [facility] Healthalbumin, [id number] 13:06:00 Test Item Value Reference Range Interpretation Comments albumin, serum (test code = 1751-7) 5.0 g/dL 3.9-5.0 [facility] Centerprotein, total, [id number] 13:06:00 Test Item Value Reference Range Interpretation Comments protein, total, serum (test code = 7.5 g/dL 6.0-8.5 2885-2) [facility] Centercalcium, [id number] 13:06:00 Test Item Value Reference Range Interpretation Comments calcium, serum (test code = 10.0 mg/dL 8.7-10.2 1999-8) [facility] Centercarbon dioxide, venous svvgc4250-18-18 13:06:00 Test Item Value Reference Range Interpretation Comments carbon dioxide, venous blood (test 23 mmol/L 20-29 code = 2027-1) [facility] Centerchloride, xkdnm1197-87-58 13:06:00 Test Item Value Reference Range Interpretation Comments chloride, serum (test code = 103 mmol/L 96-106 5-0) [facility] Centerpotassium, [id number] 13:06:00 Test Item Value Reference Range Interpretation Comments potassium, serum (test code = 4.5 mmol/L 3.5-5.2 2823-3) [facility] Centersodium, ywnfc4760-31-02 13:06:00 Test Item Value Reference Range Interpretation Comments sodium, serum (test code = 2951-2) 141 mmol/L 134-144 [facility] Centerurea nitrogen/creatinine ratio, vzzzq1609-31-42 13:06:00 Test Item Value Reference Range Interpretation Comments urea nitrogen/creatinine 15 (unknown unit) 9-23 ratio, serum (test code = 3097-3) [facility] HealtheGFR if Qovkkhnr3526-19-14 13:06:00 Test Item Value Reference Range Interpretation Comments eGFR if 114 mL/min/{1.73 m2} >59 (test code = 89904-5) [facility] CenterEstimated Glomerular Filtration Rate (calc)2021-01-08 13:06:00 Test Item Value Reference Range Interpretation Comments Estimated Glomerular 99 mL/min/{1.73 m2} >59 Filtration Rate (calc) (test code = 47743-8) [facility] Centercreatinine, [id number] 13:06:00 Test Item Value Reference Range Interpretation Comments creatinine, serum (test code = 0.85 mg/dL 0.57-1.00 2160-0) [facility] Centerurea nitrogen, srqkj2534-71-05 13:06:00 Test Item Value Reference Range Interpretation Comments urea nitrogen, blood (test code = 13 mg/dL 6-20 3094-0) [facility] Centerblood glucose, wzrspa0564-42-43 13:06:00 Test Item Value Reference Range Interpretation Comments blood glucose, random (test code = 84 mg/dL 65-99 2339-0) [facility] Centerimmature granulocytes, percentage of total cells, blood 2021-01-08 13:06:00 Test Item Value Reference Range Interpretation Comments immature granulocytes, percentage of 0 % total cells, blood (test code = 74037-0) [facility] Centerbasophil count, jwdntqqc5109-46-58 13:06:00 Test Item Value Reference Range Interpretation Comments basophil count, absolute (test 0.0 x10E3/uL 0.0-0.2 code = 55098-4) [facility] CenterEosinophil Absolute Dslvc3429-74-28 13:06:00 Test Item Value Reference Range Interpretation Comments Eosinophil Absolute Count (test 0.2 X10E3/UL 0.0-0.4 code = 11403-4) [facility] Centermonocyte count, blood, tmvyxzewf7618-05-59 13:06:00 Test Item Value Reference Range Interpretation Comments monocyte count, blood, automated 0.8 X10E3/UL 0.1-0.9 (test code = 742-7) [facility] Centerlymphocyte count, blood, nllwkkwfr3172-13-95 13:06:00 Test Item Value Reference Range Interpretation Comments lymphocyte count, blood, 3.4 X10E3/UL 0.7-3.1 H automated (test code = 731-0) [facility] CenterAbsolute Yxagaivvhtw1350-69-16 13:06:00 Test Item Value Reference Range Interpretation Comments Absolute Neutrophils (test code 4.4 X10E3/UL 1.4-7.0 = 91848-8) [facility] Centerbasophils as percent of blood toffksduma5738-96-38 13:06:00 Test Item Value Reference Range Interpretation Comments basophils as percent of blood 1 % leukocytes (test code = 707-0) [facility] Centereosinophils as percent of blood ednfbpxmsg8036-25-01 13:06:00 Test Item Value Reference Range Interpretation Comments eosinophils as percent of blood 3 % leukocytes (test code = 713-8) [facility] Centermonocytes as percent of blood wmewohkunx1371-47-31 13:06:00 Test Item Value Reference Range Interpretation Comments monocytes as percent of blood 9 % leukocytes (test code = 5905-5) [facility] Centerlymphocytes as percent of blood vdsknnqoch0337-63-41 13:06:00 Test Item Value Reference Range Interpretation Comments lymphocytes as percent of blood 38 % leukocytes (test code = 736-9) [facility] Centertestosterone, serum, kjge9260-11-39 11:50:00 Test Item Value Reference Range Interpretation Comments testosterone, serum, free (test 10.9 pg/mL 0.0-4.2 H code = 2991-8) [facility] Centertestosterone, khhzi9366-40-90 11:50:00 Test Item Value Reference Range Interpretation Comments testosterone, total (test code = 515 ng/dL 8-48 H 2986-8) [facility] CenterLDL cholesterol, iezbn3103-61-63 11:50:00 Test Item Value Reference Range Interpretation Comments LDL cholesterol, serum (test code = 100 mg/dL 0-99 H 2088-1) [facility] Centervery low density [id number] 11:50:00 Test Item Value Reference Range Interpretation Comments very low density lipoproteins (test 8 mg/dL 5-40 code = 2090-7) [facility]HDL cholesterol, [id number] 11:50:00 Test Item Value Reference Range Interpretation Comments HDL cholesterol, serum (test code = 57 mg/dL >39 2084-9) [facility] Centertriglyceride, serum, [id number] 11:50:00 Test Item Value Reference Range Interpretation Comments triglyceride, serum, fasting (test 37 mg/dL 0-149 code = 2571-8) [facility] Centercholesterol, [id number] 11:50:00 Test Item Value Reference Range Interpretation Comments cholesterol, serum (test code = 165 mg/dL 990-709 4021-3) [facility] Centeralanine aminotransferase (SGPT), [id number] 11:50:00 Test Item Value Reference Range Interpretation Comments alanine aminotransferase (SGPT), serum 13 1/L 0-32 (test code = 1742-6) [facility] Centeraspartate aminotransferase (SGOT), [id number] 11:50:00 Test Item Value Reference Range Interpretation Comments aspartate aminotransferase (SGOT), 18 1/L 0-40 serum (test code = 1920-8) [facility] Centeralkaline phosphatase, [id number] 11:50:00 Test Item Value Reference Range Interpretation Comments alkaline phosphatase, serum (test code 82 1/L 39-117 = 1783-0) [facility] Centerbilirubin, serum, [id number] 11:50:00 Test Item Value Reference Range Interpretation Comments bilirubin, serum, total (test code 0.2 mg/dL 0.0-1.2 = 1975-2) [facility] Centeralbumin/globulin ratio, [id number] 11:50:00 Test Item Value Reference Range Interpretation Comments albumin/globulin ratio, 2.3 (unknown unit) 1.2-2.2 H serum (test code = 1759-0) [facility] Centerglobulin, [id number] 11:50:00 Test Item Value Reference Range Interpretation Comments globulin, serum (test code 2.2 (unknown unit) 1.5-4.5 = 2336-6) [facility] Centeralbumin, [id number] 11:50:00 Test Item Value Reference Range Interpretation Comments albumin, serum (test code = 1751-7) 5.0 g/dL 3.9-5.0 [facility] Healthprotein, total, [id number] 11:50:00 Test Item Value Reference Range Interpretation Comments protein, total, serum (test code = 7.2 g/dL 6.0-8.5 2885-2) [facility] Centercalcium, [id number] 11:50:00 Test Item Value Reference Range Interpretation Comments calcium, serum (test code = 1999-) 9.7 mg/dL 8.7-10.2 [facility] Centercarbon dioxide, venous [id number] 11:50:00 Test Item Value Reference Range Interpretation Comments carbon dioxide, venous blood (test 23 mmol/L code = 7-1) [facility] Healthchloride, [id number] 11:50:00 Test Item Value Reference Range Interpretation Comments chloride, serum (test code = 103 mmol/L 96-106 5-0) [facility] Centerpotassium, [id number] 11:50:00 Test Item Value Reference Range Interpretation Comments potassium, serum (test code = 4.1 mmol/L 3.5-5.2 2823-3) [facility] Centersodium, [id number] 11:50:00 Test Item Value Reference Range Interpretation Comments sodium, serum (test code = 2951-2) 140 mmol/L 134-144 [facility] Centerurea nitrogen/creatinine ratio, [id number] 11:50:00 Test Item Value Reference Range Interpretation Comments urea nitrogen/creatinine 18 (unknown unit) 9-23 ratio, serum (test code = 3097-3) [facility] HealtheGFR if [id number] 11:50:00 Test Item Value Reference Range Interpretation Comments eGFR if 105 mL/min/{1.73 m2} >59 (test code = 32525-3) [facility] CenterEstimated Glomerular Filtration Rate (calc)2020-08-14 11:50:00 Test Item Value Reference Range Interpretation Comments Estimated Glomerular 91 mL/min/{1.73 m2} >59 Filtration Rate (calc) (test code = 95030-1) [facility] Centercreatinine, [id number] 11:50:00 Test Item Value Reference Range Interpretation Comments creatinine, serum (test code = 0.91 mg/dL 0.57-1.00 2160-0) [facility] Centerurea nitrogen, [id number] 11:50:00 Test Item Value Reference Range Interpretation Comments urea nitrogen, blood (test code = 16 mg/dL 6-20 3094-0) [facility] Centerblood glucose, [id number] 11:50:00 Test Item Value Reference Range Interpretation Comments blood glucose, random (test code = 104 mg/dL 65-99 H 2339-0) [facility] Centerimmature granulocytes, percentage of total cells, blood 2020-08-14 11:50:00 Test Item Value Reference Range Interpretation Comments immature granulocytes, percentage of 0 % total cells, blood (test code = 09405-4) [facility] Centerbasophil count, [id number] 11:50:00 Test Item Value Reference Range Interpretation Comments basophil count, absolute (test 0.0 x10E3/uL 0.0-0.2 code = 41342-3) [facility] CenterEosinophil Absolute [id number] 11:50:00 Test Item Value Reference Range Interpretation Comments Eosinophil Absolute Count (test 0.2 X10E3/UL 0.0-0.4 code = 21436-1) [facility] Centermonocyte count, blood, [id number] 11:50:00 Test Item Value Reference Range Interpretation Comments monocyte count, blood, automated 0.8 X10E3/UL 0.1-0.9 (test code = 742-7) [facility] Centerlymphocyte count, blood, [id number] 11:50:00 Test Item Value Reference Range Interpretation Comments lymphocyte count, blood, 3.3 X10E3/UL 0.7-3.1 H automated (test code = 731-0) [facility] CenterAbsolute Iqxybzwvxvf2107-90-09 11:50:00 Test Item Value Reference Range Interpretation Comments Absolute Neutrophils (test code 4.3 X10E3/UL 1.4-7.0 = 30763-7) [facility] Centerbasophils as percent of blood zfrohymoqe3757-96-63 11:50:00 Test Item Value Reference Range Interpretation Comments basophils as percent of blood 1 % leukocytes (test code = 707-0) [facility] Centereosinophils as percent of blood [id number] 11:50:00 Test Item Value Reference Range Interpretation Comments eosinophils as percent of blood 2 % leukocytes (test code = 713-8) [facility] Healthmonocytes as percent of blood unufjaknlv1530-88-91 11:50:00 Test Item Value Reference Range Interpretation Comments monocytes as percent of blood 9 % leukocytes (test code = 5905-5) [facility] Centerlymphocytes as percent of blood gdcmtnxkkh5065-08-36 11:50:00 Test Item Value Reference Range Interpretation Comments lymphocytes as percent of blood 39 % leukocytes (test code = 736-9) [facility] Centerneutrophils as percent of blood [id number] 11:50:00 Test Item Value Reference Range Interpretation Comments neutrophils as percent of blood 49 % leukocytes (test code = 770-8) [facility] Centerplatelet [id number] 11:50:00 Test Item Value Reference Range Interpretation Comments platelet count (test code = 234 X10E3/UL 150-450 777-3) [facility] Centerred blood cell distribution [id number] 11:50:00 Test Item Value Reference Range Interpretation Comments red blood cell distribution width 14.6 % 11.7-15.4 (test code = 788-0) [facility] corpuscular hemoglobin concentration, [id number] 11:50:00 Test Item Value Reference Range Interpretation Comments mean corpuscular hemoglobin 31.1 G/DL 31.5-35.7 L concentration, RBC (test code = 786-4) [facility] corpuscular hemoglobin, [id number] 11:50:00 Test Item Value Reference Range Interpretation Comments mean corpuscular hemoglobin, RBC 25.3 pg 26.6-33.0 L (test code = 785-6) [facility] corpuscular volume, [id number] 11:50:00 Test Item Value Reference Range Interpretation Comments mean corpuscular volume, RBC (test code 81 fL 79-97 = 787-2) [facility] Centerhematocrit, [id number] 11:50:00 Test Item Value Reference Range Interpretation Comments hematocrit, blood (test code = 4544-3) 44.0 % 34.0-46.6 [facility] Centerhemoglobin, [id number] 11:50:00 Test Item Value Reference Range Interpretation Comments hemoglobin, blood (test code = 13.7 g/dL 11.1-15.9 718-7) [facility] Centererythrocyte (RBC) [id number] 11:50:00 Test Item Value Reference Range Interpretation Comments erythrocyte (RBC) count (test 5.41 X10E6/UL 3.77-5.28 H code = 789-8) [facility] Centerleukocyte count, [id number] 11:50:00 Test Item Value Reference Range Interpretation Comments leukocyte count, blood (test 8.6 X10E3/UL 3.4-10.8 code = 6690-2) [facility] Centertestosterone, serum, [id number] 14:00:00 Test Item Value Reference Range Interpretation Comments testosterone, serum, free (test 10.2 pg/mL 0.0-4.2 H code = 2991-8) [facility] Centertestosterone, [id number] 14:00:00 Test Item Value Reference Range Interpretation Comments testosterone, total (test code = 795 ng/dL 8-48 H 2986-8) [facility] CenterLDL cholesterol, [id number] 14:00:00 Test Item Value Reference Range Interpretation Comments LDL cholesterol, serum (test code = 92 mg/dL 0-99 9-1) [facility] Centervery low density lrddajgramfj8253-10-75 14:00:00 Test Item Value Reference Range Interpretation Comments very low density lipoproteins (test 10 mg/dL 5-40 code = 2091-7) [facility] CenterHDL cholesterol, [id number] 14:00:00 Test Item Value Reference Range Interpretation Comments HDL cholesterol, serum (test code = 57 mg/dL >39 5-9) [facility] Centertriglyceride, serum, [id number] 14:00:00 Test Item Value Reference Range Interpretation Comments triglyceride, serum, fasting (test 48 mg/dL 0-149 code = 2571-8) [facility] Centercholesterol, [id number] 14:00:00 Test Item Value Reference Range Interpretation Comments cholesterol, serum (test code = 159 mg/dL 643-194 5103-3) [facility] Healthalanine aminotransferase (SGPT), [id number] 14:00:00 Test Item Value Reference Range Interpretation Comments alanine aminotransferase (SGPT), serum 11 1/L 0-32 (test code = 1742-6) [facility] Centeraspartate aminotransferase (SGOT), [id number] 14:00:00 Test Item Value Reference Range Interpretation Comments aspartate aminotransferase (SGOT), 20 1/L 0-40 serum (test code = 1920-8) [facility] Centeralkaline phosphatase, [id number] 14:00:00 Test Item Value Reference Range Interpretation Comments alkaline phosphatase, serum (test code 71 1/L 39-117 = 1783-0) [facility] Centerbilirubin, serum, [id number] 14:00:00 Test Item Value Reference Range Interpretation Comments bilirubin, serum, total (test code 0.5 mg/dL 0.0-1.2 = 1975-2) [facility] Centeralbumin/globulin ratio, [id number] 14:00:00 Test Item Value Reference Range Interpretation Comments albumin/globulin ratio, 1.8 (unknown unit) 1.2-2.2 serum (test code = 1759-0) [facility] Healthglobulin, [id number] 14:00:00 Test Item Value Reference Range Interpretation Comments globulin, serum (test code 2.6 (unknown unit) 1.5-4.5 = 2336-6) [facility] Healthalbumin, [id number] 14:00:00 Test Item Value Reference Range Interpretation Comments albumin, serum (test code = 1751-7) 4.6 g/dL 3.9-5.0 [facility] Centerprotein, total, [id number] 14:00:00 Test Item Value Reference Range Interpretation Comments protein, total, serum (test code = 7.2 g/dL 6.0-8.5 2885-2) [facility] Centercalcium, [id number] 14:00:00 Test Item Value Reference Range Interpretation Comments calcium, serum (test code = 1999-8) 9.9 mg/dL 8.7-10.2 [facility] Centercarbon dioxide, venous [id number] 14:00:00 Test Item Value Reference Range Interpretation Comments carbon dioxide, venous blood (test 23 mmol/L 20-29 code = 2027-1) [facility] Centerchloride, [id number] 14:00:00 Test Item Value Reference Range Interpretation Comments chloride, serum (test code = 103 mmol/L 96-106 2075-0) [facility] Centerpotassium, [id number] 14:00:00 Test Item Value Reference Range Interpretation Comments potassium, serum (test code = 4.1 mmol/L 3.5-5.2 2823-3) [facility] Centersodium, [id number] 14:00:00 Test Item Value Reference Range Interpretation Comments sodium, serum (test code = 2951-2) 140 mmol/L 134-144 [facility] Centerurea nitrogen/creatinine ratio, [id number] 14:00:00 Test Item Value Reference Range Interpretation Comments urea nitrogen/creatinine 13 (unknown unit) 9-23 ratio, serum (test code = 3097-3) [facility] CentereGFR if Fpkseluf3065-45-63 14:00:00 Test Item Value Reference Range Interpretation Comments eGFR if 112 mL/min/{1.73 m2} >59 (test code = 78168-8) [facility] CenterEstimated Glomerular Filtration Rate (calc)2020-05-22 14:00:00 Test Item Value Reference Range Interpretation Comments Estimated Glomerular 98 mL/min/{1.73 m2} >59 Filtration Rate (calc) (test code = 08977-9) [facility] Centercreatinine, [id number] 14:00:00 Test Item Value Reference Range Interpretation Comments creatinine, serum (test code = 0.86 mg/dL 0.57-1.00 2160-0) [facility] Centerurea nitrogen, [id number] 14:00:00 Test Item Value Reference Range Interpretation Comments urea nitrogen, blood (test code = 11 mg/dL 6-20 3094-0) [facility] Centerblood glucose, [id number] 14:00:00 Test Item Value Reference Range Interpretation Comments blood glucose, random (test code = 76 mg/dL 65-99 2339-0) [facility] Centerimmature granulocytes, percentage of total cells, blood 2020-05-22 14:00:00 Test Item Value Reference Range Interpretation Comments immature granulocytes, percentage of 0 % total cells, blood (test code = 93821-1) [facility] Healthbasophil count, [id number] 14:00:00 Test Item Value Reference Range Interpretation Comments basophil count, absolute (test 0.0 x10E3/uL 0.0-0.2 code = 80320-2) [facility] HealthEosinophil Absolute [id number] 14:00:00 Test Item Value Reference Range Interpretation Comments Eosinophil Absolute Count (test 0.2 X10E3/UL 0.0-0.4 code = 04898-4) [facility] Centermonocyte count, blood, fgwonpbvm5685-85-00 14:00:00 Test Item Value Reference Range Interpretation Comments monocyte count, blood, automated 0.8 X10E3/UL 0.1-0.9 (test code = 742-7) [facility] Centerlymphocyte count, blood, [id number] 14:00:00 Test Item Value Reference Range Interpretation Comments lymphocyte count, blood, 3.5 X10E3/UL 0.7-3.1 H automated (test code = 731-0) [facility] CenterAbsolute Dlpvcfbsawe7055-80-90 14:00:00 Test Item Value Reference Range Interpretation Comments Absolute Neutrophils (test code 4.2 X10E3/UL 1.4-7.0 = 05835-5) [facility] Centerbasophils as percent of blood qgrvyyjija3141-78-98 14:00:00 Test Item Value Reference Range Interpretation Comments basophils as percent of blood 0 % leukocytes (test code = 707-0) [facility] Healtheosinophils as percent of blood zlcbvweypi8579-62-22 14:00:00 Test Item Value Reference Range Interpretation Comments eosinophils as percent of blood 2 % leukocytes (test code = 713-8) [facility] Healthmonocytes as percent of blood ujvnqkdnvq1145-05-86 14:00:00 Test Item Value Reference Range Interpretation Comments monocytes as percent of blood 9 % leukocytes (test code = 5905-5) [facility] Centerlymphocytes as percent of blood katqokwaqn7902-73-18 14:00:00 Test Item Value Reference Range Interpretation Comments lymphocytes as percent of blood 41 % leukocytes (test code = 736-9) [facility] Centerneutrophils as percent of blood sqvuimvhbc7189-18-75 14:00:00 Test Item Value Reference Range Interpretation Comments neutrophils as percent of blood 48 % leukocytes (test code = 770-8) [facility] Centerplatelet [id number] 14:00:00 Test Item Value Reference Range Interpretation Comments platelet count (test code = 240 X10E3/UL 150-450 777-3) [facility] Centerred blood cell distribution [id number] 14:00:00 Test Item Value Reference Range Interpretation Comments red blood cell distribution width 13.9 % 11.7-15.4 (test code = 788-0) [facility] corpuscular hemoglobin concentration, [id number] 14:00:00 Test Item Value Reference Range Interpretation Comments mean corpuscular hemoglobin 31.1 G/DL 31.5-35.7 L concentration, RBC (test code = 786-4) [facility] corpuscular hemoglobin, [id number] 14:00:00 Test Item Value Reference Range Interpretation Comments mean corpuscular hemoglobin, RBC 24.7 pg 26.6-33.0 L (test code = 785-6) [facility] corpuscular volume, [id number] 14:00:00 Test Item Value Reference Range Interpretation Comments mean corpuscular volume, RBC (test code 79 fL 79-97 = 787-2) [facility] Centerhematocrit, [id number] 14:00:00 Test Item Value Reference Range Interpretation Comments hematocrit, blood (test code = 4544-3) 40.5 % 34.0-46.6 [facility] Centerhemoglobin, [id number] 14:00:00 Test Item Value Reference Range Interpretation Comments hemoglobin, blood (test code = 12.6 g/dL 11.1-15.9 718-7) [facility] Centererythrocyte (RBC) [id number] 14:00:00 Test Item Value Reference Range Interpretation Comments erythrocyte (RBC) count (test 5.10 X10E6/UL 3.77-5.28 code = 789-8) [facility] Centerleukocyte count, [id number] 14:00:00 Test Item Value Reference Range Interpretation Comments leukocyte count, blood (test 8.7 X10E3/UL 3.4-10.8 code = 6690-2) [facility] Centertestosterone, serum, [id number] 14:28:00 Test Item Value Reference Range Interpretation Comments testosterone, serum, free (test 13.3 pg/mL code = 2991-8) [facility] Centertestosterone, [id number] 14:28:00 Test Item Value Reference Range Interpretation Comments testosterone, total (test code = 727 ng/dL 2986-8) [facility] CenterLDL cholesterol, [id number] 14:28:00 Test Item Value Reference Range Interpretation Comments LDL cholesterol, serum (test code = 54 mg/dL 0-109 2088-1) [facility] Centervery low density ksgiaxqpofri0327-24-38 14:28:00 Test Item Value Reference Range Interpretation Comments very low density lipoproteins (test 17 mg/dL 5-40 code = 1-7) [facility] CenterHDL cholesterol, [id number] 14:28:00 Test Item Value Reference Range Interpretation Comments HDL cholesterol, serum (test code = 57 mg/dL >39 2084-9) [facility] Centertriglyceride, serum, [id number] 14:28:00 Test Item Value Reference Range Interpretation Comments triglyceride, serum, fasting (test 83 mg/dL 0-89 code = 2571-8) [facility] Centercholesterol, [id number] 14:28:00 Test Item Value Reference Range Interpretation Comments cholesterol, serum (test code = 128 mg/dL 906-645 5827-3) [facility] Centeralanine aminotransferase (SGPT), [id number] 14:28:00 Test Item Value Reference Range Interpretation Comments alanine aminotransferase (SGPT), serum 11 1/L 0-32 (test code = 1742-6) [facility] Centeraspartate aminotransferase (SGOT), [id number] 14:28:00 Test Item Value Reference Range Interpretation Comments aspartate aminotransferase (SGOT), 17 1/L 0-40 serum (test code = 1920-8) [facility] Centeralkaline phosphatase, [id number] 14:28:00 Test Item Value Reference Range Interpretation Comments alkaline phosphatase, serum (test code 64 1/L 39-117 = 1783-0) [facility] Healthbilirubin, serum, [id number] 14:28:00 Test Item Value Reference Range Interpretation Comments bilirubin, serum, total (test code 0.2 mg/dL 0.0-1.2 = 1975-2) [facility] Healthalbumin/globulin ratio, [id number] 14:28:00 Test Item Value Reference Range Interpretation Comments albumin/globulin ratio, 2.2 (unknown unit) 1.2-2.2 serum (test code = 1759-0) [facility] Healthglobulin, [id number] 14:28:00 Test Item Value Reference Range Interpretation Comments globulin, serum (test code 2.0 (unknown unit) 1.5-4.5 = 2336-6) [facility] Healthalbumin, [id number] 14:28:00 Test Item Value Reference Range Interpretation Comments albumin, serum (test code = 1751-7) 4.4 g/dL 3.9-5.0 [facility] Centerprotein, total, [id number] 14:28:00 Test Item Value Reference Range Interpretation Comments protein, total, serum (test code = 6.4 g/dL 6.0-8.5 2885-2) [facility] Centercalcium, [id number] 14:28:00 Test Item Value Reference Range Interpretation Comments calcium, serum (test code = 1999-8) 9.7 mg/dL 8.7-10.2 [facility] Centercarbon dioxide, venous [id number] 14:28:00 Test Item Value Reference Range Interpretation Comments carbon dioxide, venous blood (test 24 mmol/L 20-29 code = 7-1) [facility] Centerchloride, [id number] 14:28:00 Test Item Value Reference Range Interpretation Comments chloride, serum (test code = 103 mmol/L 96-106 5-0) [facility] Centerpotassium, [id number] 14:28:00 Test Item Value Reference Range Interpretation Comments potassium, serum (test code = 4.1 mmol/L 3.5-5.2 2823-3) [facility] Centersodium, [id number] 14:28:00 Test Item Value Reference Range Interpretation Comments sodium, serum (test code = 2951-2) 142 mmol/L 134-144 [facility] Centerurea nitrogen/creatinine ratio, [id number] 14:28:00 Test Item Value Reference Range Interpretation Comments urea nitrogen/creatinine 12 (unknown unit) 9-23 ratio, serum (test code = 3097-3) [facility] HealtheGFR if Rjtyueub7365-55-42 14:28:00 Test Item Value Reference Range Interpretation Comments eGFR if 138 mL/min/{1.73 m2} >59 (test code = 31351-9) [facility] CenterEstimated Glomerular Filtration Rate (calc)2020-03-27 14:28:00 Test Item Value Reference Range Interpretation Comments Estimated Glomerular 120 mL/min/{1.73 m2} >59 Filtration Rate (calc) (test code = 54721-8) [facility] Centercreatinine, [id number] 14:28:00 Test Item Value Reference Range Interpretation Comments creatinine, serum (test code = 0.73 mg/dL 0.57-1.00 2160-0) [facility] Centerurea nitrogen, [id number] 14:28:00 Test Item Value Reference Range Interpretation Comments urea nitrogen, blood (test code = 9 mg/dL 6-20 3094-0) [facility] Centerblood glucose, [id number] 14:28:00 Test Item Value Reference Range Interpretation Comments blood glucose, random (test code = 83 mg/dL 65-99 2339-0) [facility] Centerimmature granulocytes, percentage of total cells, blood 2020-03-27 14:28:00 Test Item Value Reference Range Interpretation Comments immature granulocytes, percentage of 0 % total cells, blood (test code = 86914-7) [facility] Centerbasophil count, [id number] 14:28:00 Test Item Value Reference Range Interpretation Comments basophil count, absolute (test 0.0 x10E3/uL 0.0-0.2 code = 65828-0) [facility] CenterEosinophil Absolute Hejjh8023-77-16 14:28:00 Test Item Value Reference Range Interpretation Comments Eosinophil Absolute Count (test 0.2 X10E3/UL 0.0-0.4 code = 53234-1) [facility] Healthmonocyte count, blood, qifmltorx8132-40-58 14:28:00 Test Item Value Reference Range Interpretation Comments monocyte count, blood, automated 0.7 X10E3/UL 0.1-0.9 (test code = 742-7) [facility] Centerlymphocyte count, blood, pqfweicyt8432-61-29 14:28:00 Test Item Value Reference Range Interpretation Comments lymphocyte count, blood, 3.0 X10E3/UL 0.7-3.1 automated (test code = 731-0) [facility] CenterAbsolute Qlmxffqxlld6914-10-48 14:28:00 Test Item Value Reference Range Interpretation Comments Absolute Neutrophils (test code 3.6 X10E3/UL 1.4-7.0 = 51005-2) [facility] Centerbasophils as percent of blood fimzepbygp9977-97-15 14:28:00 Test Item Value Reference Range Interpretation Comments basophils as percent of blood 1 % leukocytes (test code = 707-0) [facility] Centereosinophils as percent of blood rsyssrxfys6699-56-15 14:28:00 Test Item Value Reference Range Interpretation Comments eosinophils as percent of blood 2 % leukocytes (test code = 713-8) [facility] Healthmonocytes as percent of blood icmoedxqyi1465-80-02 14:28:00 Test Item Value Reference Range Interpretation Comments monocytes as percent of blood 9 % leukocytes (test code = 5905-5) [facility] Centerlymphocytes as percent of blood niqvggbihr4431-15-78 14:28:00 Test Item Value Reference Range Interpretation Comments lymphocytes as percent of blood 40 % leukocytes (test code = 736-9) [facility] Centerneutrophils as percent of blood duantrwmnj1598-44-33 14:28:00 Test Item Value Reference Range Interpretation Comments neutrophils as percent of blood 48 % leukocytes (test code = 770-8) [facility] Centerplatelet [id number] 14:28:00 Test Item Value Reference Range Interpretation Comments platelet count (test code = 249 X10E3/UL 150-450 777-3) [facility] Centerred blood cell distribution [id number] 14:28:00 Test Item Value Reference Range Interpretation Comments red blood cell distribution width 12.8 % 11.7-15.4 (test code = 788-0) [facility] corpuscular hemoglobin concentration, [id number] 14:28:00 Test Item Value Reference Range Interpretation Comments mean corpuscular hemoglobin 31.1 G/DL 31.5-35.7 L concentration, RBC (test code = 786-4) [facility] corpuscular hemoglobin, [id number] 14:28:00 Test Item Value Reference Range Interpretation Comments mean corpuscular hemoglobin, RBC 25.3 pg 26.6-33.0 L (test code = 785-6) [facility] corpuscular volume, [id number] 14:28:00 Test Item Value Reference Range Interpretation Comments mean corpuscular volume, RBC (test code 81 fL 79-97 = 787-2) [facility] Centerhematocrit, [id number] 14:28:00 Test Item Value Reference Range Interpretation Comments hematocrit, blood (test code = 4544-3) 39.9 % 34.0-46.6 [facility] Centerhemoglobin, [id number] 14:28:00 Test Item Value Reference Range Interpretation Comments hemoglobin, blood (test code = 12.4 g/dL 11.1-15.9 718-7) [facility] Centererythrocyte (RBC) [id number] 14:28:00 Test Item Value Reference Range Interpretation Comments erythrocyte (RBC) count (test 4.91 X10E6/UL 3.77-5.28 code = 789-8) [facility] Centerleukocyte count, [id number] 14:28:00 Test Item Value Reference Range Interpretation Comments leukocyte count, blood (test 7.6 X10E3/UL 3.4-10.8 code = 6690-2) [facility] Centertestosterone, serum, [id number] 13:40:00 Test Item Value Reference Range Interpretation Comments testosterone, serum, free (test 10.7 pg/mL code = 2991-8) [facility] Centertestosterone, [id number] 13:40:00 Test Item Value Reference Range Interpretation Comments testosterone, total (test code = 615 ng/dL 2986-8) [facility] CenterLDL cholesterol, [id number] 13:40:00 Test Item Value Reference Range Interpretation Comments LDL cholesterol, serum (test code = 76 mg/dL 0-109 2088-1) [facility] Centervery low density lilqvhrghpyn8110-74-40 13:40:00 Test Item Value Reference Range Interpretation Comments very low density lipoproteins (test 9 mg/dL 5-40 code = 2091-7) [facility] CenterHDL cholesterol, [id number] 13:40:00 Test Item Value Reference Range Interpretation Comments HDL cholesterol, serum (test code = 55 mg/dL >39 2084-9) [facility] Centertriglyceride, serum, [id number] 13:40:00 Test Item Value Reference Range Interpretation Comments triglyceride, serum, fasting (test 47 mg/dL 0-89 code = 2571-8) [facility] Centercholesterol, [id number] 13:40:00 Test Item Value Reference Range Interpretation Comments cholesterol, serum (test code = 140 mg/dL 659-643 8149-3) [facility] Centeralanine aminotransferase (SGPT), [id number] 13:40:00 Test Item Value Reference Range Interpretation Comments alanine aminotransferase (SGPT), serum 11 1/L 0-32 (test code = 1742-6) [facility] Centeraspartate aminotransferase (SGOT), dmeuz1649-03-25 13:40:00 Test Item Value Reference Range Interpretation Comments aspartate aminotransferase (SGOT), 17 1/L 0-40 serum (test code = 1920-8) [facility] Centeralkaline phosphatase, [id number] 13:40:00 Test Item Value Reference Range Interpretation Comments alkaline phosphatase, serum (test code 67 1/L 39-117 = 1783-0) [facility] Centerbilirubin, serum, [id number] 13:40:00 Test Item Value Reference Range Interpretation Comments bilirubin, serum, total (test code 0.4 mg/dL 0.0-1.2 = 1975-2) [facility] Centeralbumin/globulin ratio, [id number] 13:40:00 Test Item Value Reference Range Interpretation Comments albumin/globulin ratio, 1.9 (unknown unit) 1.2-2.2 serum (test code = 1759-0) [facility] Healthglobulin, [id number] 13:40:00 Test Item Value Reference Range Interpretation Comments globulin, serum (test code 2.3 (unknown unit) 1.5-4.5 = 2336-6) [facility] Healthalbumin, [id number] 13:40:00 Test Item Value Reference Range Interpretation Comments albumin, serum (test code = 1751-7) 4.3 g/dL 3.9-5.0 [facility] Centerprotein, total, giaps3119-14-02 13:40:00 Test Item Value Reference Range Interpretation Comments protein, total, serum (test code = 6.6 g/dL 6.0-8.5 2885-2) [facility] Centercalcium, [id number] 13:40:00 Test Item Value Reference Range Interpretation Comments calcium, serum (test code = 1999-8) 9.5 mg/dL 8.7-10.2 [facility] Centercarbon dioxide, venous [id number] 13:40:00 Test Item Value Reference Range Interpretation Comments carbon dioxide, venous blood (test 24 mmol/L 20-29 code = 7-1) [facility] Centerchloride, [id number] 13:40:00 Test Item Value Reference Range Interpretation Comments chloride, serum (test code = 103 mmol/L 96-106 5-0) [facility] Centerpotassium, [id number] 13:40:00 Test Item Value Reference Range Interpretation Comments potassium, serum (test code = 4.2 mmol/L 3.5-5.2 2823-3) [facility] Centersodium, [id number] 13:40:00 Test Item Value Reference Range Interpretation Comments sodium, serum (test code = 2951-2) 139 mmol/L 134-144 [facility] Centerurea nitrogen/creatinine ratio, [id number] 13:40:00 Test Item Value Reference Range Interpretation Comments urea nitrogen/creatinine 11 (unknown unit) 9-23 ratio, serum (test code = 3097-3) [facility] HealtheGFR if Ubdqdaln5770-56-05 13:40:00 Test Item Value Reference Range Interpretation Comments eGFR if 124 mL/min/{1.73 m2} >59 (test code = 94668-1) [facility] CenterEstimated Glomerular Filtration Rate (calc)2020-02-14 13:40:00 Test Item Value Reference Range Interpretation Comments Estimated Glomerular 107 mL/min/{1.73 m2} >59 Filtration Rate (calc) (test code = 86066-0) [facility] Centercreatinine, [id number] 13:40:00 Test Item Value Reference Range Interpretation Comments creatinine, serum (test code = 0.80 mg/dL 0.57-1.00 2160-0) [facility] Centerurea nitrogen, [id number] 13:40:00 Test Item Value Reference Range Interpretation Comments urea nitrogen, blood (test code = 9 mg/dL 6-20 3094-0) [facility] Centerblood glucose, [id number] 13:40:00 Test Item Value Reference Range Interpretation Comments blood glucose, random (test code = 83 mg/dL 65-99 2339-0) [facility] Centerimmature granulocytes, percentage of total cells, blood 2020-02-14 13:40:00 Test Item Value Reference Range Interpretation Comments immature granulocytes, percentage of 0 % total cells, blood (test code = 35221-0) [facility] Centerbasophil count, taiudhni7782-90-23 13:40:00 Test Item Value Reference Range Interpretation Comments basophil count, absolute (test 0.0 x10E3/uL 0.0-0.2 code = 50824-7) [facility] CenterEosinophil Absolute [id number] 13:40:00 Test Item Value Reference Range Interpretation Comments Eosinophil Absolute Count (test 0.2 X10E3/UL 0.0-0.4 code = 19313-8) [facility] Centermonocyte count, blood, zyfewqfwd2766-01-15 13:40:00 Test Item Value Reference Range Interpretation Comments monocyte count, blood, automated 0.7 X10E3/UL 0.1-0.9 (test code = 742-7) [facility] Centerlymphocyte count, blood, [id number] 13:40:00 Test Item Value Reference Range Interpretation Comments lymphocyte count, blood, 2.4 X10E3/UL 0.7-3.1 automated (test code = 731-0) [facility] CenterAbsolute Xeqgiinewsl9846-75-09 13:40:00 Test Item Value Reference Range Interpretation Comments Absolute Neutrophils (test code 5.3 X10E3/UL 1.4-7.0 = 12891-5) [facility] Centerbasophils as percent of blood taiptxyiqe2823-23-02 13:40:00 Test Item Value Reference Range Interpretation Comments basophils as percent of blood 0 % leukocytes (test code = 707-0) [facility] Centereosinophils as percent of blood nkjzxcjeyz8717-78-30 13:40:00 Test Item Value Reference Range Interpretation Comments eosinophils as percent of blood 2 % leukocytes (test code = 713-8) [facility] Centermonocytes as percent of blood hcderuhkgl3279-96-10 13:40:00 Test Item Value Reference Range Interpretation Comments monocytes as percent of blood 8 % leukocytes (test code = 5905-5) [facility] Centerlymphocytes as percent of blood sgvreockul5805-23-10 13:40:00 Test Item Value Reference Range Interpretation Comments lymphocytes as percent of blood 28 % leukocytes (test code = 736-9) [facility] Centerneutrophils as percent of blood tlvdlvbpwv1962-59-46 13:40:00 Test Item Value Reference Range Interpretation Comments neutrophils as percent of blood 62 % leukocytes (test code = 770-8) [facility] Centerplatelet [id number] 13:40:00 Test Item Value Reference Range Interpretation Comments platelet count (test code = 254 X10E3/UL 150-450 777-3) [facility] Centerred blood cell distribution hpqzx3758-82-11 13:40:00 Test Item Value Reference Range Interpretation Comments red blood cell distribution width 13.5 % 11.7-15.4 (test code = 788-0) [facility] Centermean corpuscular hemoglobin concentration, [id number] 13:40:00 Test Item Value Reference Range Interpretation Comments mean corpuscular hemoglobin 30.2 G/DL 31.5-35.7 L concentration, RBC (test code = 786-4) [facility] Centermean corpuscular hemoglobin, [id number] 13:40:00 Test Item Value Reference Range Interpretation Comments mean corpuscular hemoglobin, RBC 25.7 pg 26.6-33.0 L (test code = 785-6) [facility] Centermean corpuscular volume, [id number] 13:40:00 Test Item Value Reference Range Interpretation Comments mean corpuscular volume, RBC (test code 85 fL 79-97 = 787-2) [facility] Centerhematocrit, [id number] 13:40:00 Test Item Value Reference Range Interpretation Comments hematocrit, blood (test code = 4544-3) 39.1 % 34.0-46.6 [facility] Centerhemoglobin, [id number] 13:40:00 Test Item Value Reference Range Interpretation Comments hemoglobin, blood (test code = 11.8 g/dL 11.1-15.9 718-7) [facility] Centererythrocyte (RBC) [id number] 13:40:00 Test Item Value Reference Range Interpretation Comments erythrocyte (RBC) count (test 4.59 X10E6/UL 3.77-5.28 code = 789-8) [facility] Centerleukocyte count, [id number] 13:40:00 Test Item Value Reference Range Interpretation Comments leukocyte count, blood (test 8.5 X10E3/UL 3.4-10.8 code = 6690-2) [facility] Centertestosterone, serum, [id number] 12:08:00 Test Item Value Reference Range Interpretation Comments testosterone, serum, free (test 10.6 pg/mL code = 2991-8) [facility] Centertestosterone, [id number] 12:08:00 Test Item Value Reference Range Interpretation Comments testosterone, total (test code = 530 ng/dL 2986-8) [facility] CenterLDL cholesterol, [id number] 12:08:00 Test Item Value Reference Range Interpretation Comments LDL cholesterol, serum (test code = 81 mg/dL 0-109 9-1) [facility] Centervery low density bdyfmnbrubav1591-61-37 12:08:00 Test Item Value Reference Range Interpretation Comments very low density lipoproteins (test 9 mg/dL 5-40 code = 2091-7) [facility] CenterHDL cholesterol, [id number] 12:08:00 Test Item Value Reference Range Interpretation Comments HDL cholesterol, serum (test code = 61 mg/dL >39 5-9) [facility] Centertriglyceride, serum, [id number] 12:08:00 Test Item Value Reference Range Interpretation Comments triglyceride, serum, fasting (test 45 mg/dL 0-89 code = 2571-8) [facility] Centercholesterol, [id number] 12:08:00 Test Item Value Reference Range Interpretation Comments cholesterol, serum (test code = 151 mg/dL 238-771 7928-3) [facility] Centeralanine aminotransferase (SGPT), [id number] 12:08:00 Test Item Value Reference Range Interpretation Comments alanine aminotransferase (SGPT), serum 14 1/L 0-32 (test code = 1742-6) [facility] Centeraspartate aminotransferase (SGOT), [id number] 12:08:00 Test Item Value Reference Range Interpretation Comments aspartate aminotransferase (SGOT), 18 1/L 0-40 serum (test code = 1920-8) [facility] Centeralkaline phosphatase, [id number] 12:08:00 Test Item Value Reference Range Interpretation Comments alkaline phosphatase, serum (test code 61 1/L 39-117 = 1783-0) [facility] Centerbilirubin, serum, [id number] 12:08:00 Test Item Value Reference Range Interpretation Comments bilirubin, serum, total (test code 0.3 mg/dL 0.0-1.2 = 1975-2) [facility] Centeralbumin/globulin ratio, [id number] 12:08:00 Test Item Value Reference Range Interpretation Comments albumin/globulin ratio, 2.3 (unknown unit) 1.2-2.2 H serum (test code = 1759-0) [facility] Healthglobulin, [id number] 12:08:00 Test Item Value Reference Range Interpretation Comments globulin, serum (test code 2.0 (unknown unit) 1.5-4.5 = 2336-6) [facility] Centeralbumin, [id number] 12:08:00 Test Item Value Reference Range Interpretation Comments albumin, serum (test code = 1751-7) 4.6 g/dL 3.9-5.0 [facility] Centerprotein, total, [id number] 12:08:00 Test Item Value Reference Range Interpretation Comments protein, total, serum (test code = 6.6 g/dL 6.0-8.5 2885-2) [facility] Healthcalcium, [id number] 12:08:00 Test Item Value Reference Range Interpretation Comments calcium, serum (test code = 1999-8) 9.4 mg/dL 8.7-10.2 [facility] Centercarbon dioxide, venous [id number] 12:08:00 Test Item Value Reference Range Interpretation Comments carbon dioxide, venous blood (test 24 mmol/L 20-29 code = 7-1) [facility] Centerchloride, [id number] 12:08:00 Test Item Value Reference Range Interpretation Comments chloride, serum (test code = 104 mmol/L 96-106 5-0) [facility] Healthpotassium, [id number] 12:08:00 Test Item Value Reference Range Interpretation Comments potassium, serum (test code = 4.5 mmol/L 3.5-5.2 2823-3) [facility] Centersodium, [id number] 12:08:00 Test Item Value Reference Range Interpretation Comments sodium, serum (test code = 2951-2) 141 mmol/L 134-144 [facility] Centerurea nitrogen/creatinine ratio, [id number] 12:08:00 Test Item Value Reference Range Interpretation Comments urea nitrogen/creatinine 11 (unknown unit) 9-23 ratio, serum (test code = 3097-3) [facility] HealtheGFR if Gxjapdgh6714-51-28 12:08:00 Test Item Value Reference Range Interpretation Comments eGFR if 112 mL/min/{1.73 m2} >59 (test code = 81963-0) [facility] CenterEstimated Glomerular Filtration Rate (calc)2020-01-03 12:08:00 Test Item Value Reference Range Interpretation Comments Estimated Glomerular 97 mL/min/{1.73 m2} >59 Filtration Rate (calc) (test code = 73669-8) [facility] Centercreatinine, [id number] 12:08:00 Test Item Value Reference Range Interpretation Comments creatinine, serum (test code = 0.87 mg/dL 0.57-1.00 0-0) [facility] Centerurea nitrogen, [id number] 12:08:00 Test Item Value Reference Range Interpretation Comments urea nitrogen, blood (test code = 10 mg/dL 6-20 3094-0) [facility] Centerblood glucose, [id number] 12:08:00 Test Item Value Reference Range Interpretation Comments blood glucose, random (test code = 64 mg/dL 65-99 L 2339-0) [facility] Centerimmature granulocytes, percentage of total cells, blood 2020-01-03 12:08:00 Test Item Value Reference Range Interpretation Comments immature granulocytes, percentage of 0 % total cells, blood (test code = 17699-1) [facility] Centerbasophil count, mlvikpqn6928-07-04 12:08:00 Test Item Value Reference Range Interpretation Comments basophil count, absolute (test 0.0 x10E3/uL 0.0-0.2 code = 30158-9) [facility] CenterEosinophil Absolute [id number] 12:08:00 Test Item Value Reference Range Interpretation Comments Eosinophil Absolute Count (test 0.1 X10E3/UL 0.0-0.4 code = 91652-7) [facility] Centermonocyte count, blood, cqpkttonl6158-98-45 12:08:00 Test Item Value Reference Range Interpretation Comments monocyte count, blood, automated 0.6 X10E3/UL 0.1-0.9 (test code = 742-7) [facility] Centerlymphocyte count, blood, fcjmwnlte2126-71-87 12:08:00 Test Item Value Reference Range Interpretation Comments lymphocyte count, blood, 2.5 X10E3/UL 0.7-3.1 automated (test code = 731-0) [facility] CenterAbsolute Tbjeujytunv9068-76-50 12:08:00 Test Item Value Reference Range Interpretation Comments Absolute Neutrophils (test code 3.4 X10E3/UL 1.4-7.0 = 84666-7) [facility] Centerbasophils as percent of blood urgodgiwat9770-30-00 12:08:00 Test Item Value Reference Range Interpretation Comments basophils as percent of blood 0 % leukocytes (test code = 707-0) [facility] Centereosinophils as percent of blood utcmtraojj9151-09-11 12:08:00 Test Item Value Reference Range Interpretation Comments eosinophils as percent of blood 2 % leukocytes (test code = 713-8) [facility] Healthmonocytes as percent of blood eplszuhjda1369-07-13 12:08:00 Test Item Value Reference Range Interpretation Comments monocytes as percent of blood 8 % leukocytes (test code = 5905-5) [facility] Centerlymphocytes as percent of blood hhgqazceiy3598-80-46 12:08:00 Test Item Value Reference Range Interpretation Comments lymphocytes as percent of blood 38 % leukocytes (test code = 736-9) [facility] [facility] Healthneutrophils as percent of blood [id number] 12:08:00 Test Item Value Reference Range Interpretation Comments neutrophils as percent of blood 52 % leukocytes (test code = 770-8) [facility] Centerplatelet [id number] 12:08:00 Test Item Value Reference Range Interpretation Comments platelet count (test code = 234 X10E3/UL 150-450 777-3) [facility] Centerred blood cell distribution [id number] 12:08:00 Test Item Value Reference Range Interpretation Comments red blood cell distribution width 12.6 % 11.7-15.4 (test code = 788-0) [facility] corpuscular hemoglobin concentration, [id number] 12:08:00 Test Item Value Reference Range Interpretation Comments mean corpuscular hemoglobin 31.7 G/DL 31.5-35.7 concentration, RBC (test code = 786-4) [facility] corpuscular hemoglobin, [id number] 12:08:00 Test Item Value Reference Range Interpretation Comments mean corpuscular hemoglobin, RBC 27.3 pg 26.6-33.0 (test code = 785-6) [facility] corpuscular volume, [id number] 12:08:00 Test Item Value Reference Range Interpretation Comments mean corpuscular volume, RBC (test code 86 fL 79-97 = 787-2) [facility] Centerhematocrit, [id number] 12:08:00 Test Item Value Reference Range Interpretation Comments hematocrit, blood (test code = 4544-3) 37.5 % 34.0-46.6 [facility] Centerhemoglobin, [id number] 12:08:00 Test Item Value Reference Range Interpretation Comments hemoglobin, blood (test code = 11.9 g/dL 11.1-15.9 718-7) [facility] Centererythrocyte (RBC) [id number] 12:08:00 Test Item Value Reference Range Interpretation Comments erythrocyte (RBC) count (test 4.36 X10E6/UL 3.77-5.28 code = 789-8) [facility] Centerleukocyte count, [id number] 12:08:00 Test Item Value Reference Range Interpretation Comments leukocyte count, blood (test 6.6 X10E3/UL 3.4-10.8 code = 6690-2) [facility] Centertestosterone, serum, [id number] 11:59:00 Test Item Value Reference Range Interpretation Comments testosterone, serum, free (test 7.2 pg/mL code = 2991-8) [facility] Centertestosterone, [id number] 11:59:00 Test Item Value Reference Range Interpretation Comments testosterone, total (test code = 458 ng/dL 2986-8) [facility] CenterLDL cholesterol, [id number] 11:59:00 Test Item Value Reference Range Interpretation Comments LDL cholesterol, serum (test code = 58 mg/dL 0-109 2088-1) [facility] Centervery low density [id number] 11:59:00 Test Item Value Reference Range Interpretation Comments very low density lipoproteins (test 7 mg/dL 5-40 code = 1-7) [facility] CenterHDL cholesterol, [id number] 11:59:00 Test Item Value Reference Range Interpretation Comments HDL cholesterol, serum (test code = 58 mg/dL >39 2084-9) [facility] Centertriglyceride, serum, [id number] 11:59:00 Test Item Value Reference Range Interpretation Comments triglyceride, serum, fasting (test 35 mg/dL 0-89 code = 2571-8) [facility] Centercholesterol, [id number] 11:59:00 Test Item Value Reference Range Interpretation Comments cholesterol, serum (test code = 123 mg/dL 420-776 6646-3) [facility] Centeralanine aminotransferase (SGPT), [id number] 11:59:00 Test Item Value Reference Range Interpretation Comments alanine aminotransferase (SGPT), serum 9 1/L 0-32 (test code = 1742-6) [facility] Healthaspartate aminotransferase (SGOT), [id number] 11:59:00 Test Item Value Reference Range Interpretation Comments aspartate aminotransferase (SGOT), 18 1/L 0-40 serum (test code = 1920-8) [facility] Healthalkaline phosphatase, [id number] 11:59:00 Test Item Value Reference Range Interpretation Comments alkaline phosphatase, serum (test code 62 1/L 39-117 = 1783-0) [facility] Healthbilirubin, serum, [id number] 11:59:00 Test Item Value Reference Range Interpretation Comments bilirubin, serum, total (test code 0.2 mg/dL 0.0-1.2 = 1975-2) [facility] Healthalbumin/globulin ratio, [id number] 11:59:00 Test Item Value Reference Range Interpretation Comments albumin/globulin ratio, 2.0 (unknown unit) 1.2-2.2 serum (test code = 1759-0) [facility] Healthglobulin, [id number] 11:59:00 Test Item Value Reference Range Interpretation Comments globulin, serum (test code 2.2 (unknown unit) 1.5-4.5 = 2336-6) [facility] Healthalbumin, [id number] 11:59:00 Test Item Value Reference Range Interpretation Comments albumin, serum (test code = 1751-7) 4.5 g/dL 3.9-5.0 [facility] Centerprotein, total, [id number] 11:59:00 Test Item Value Reference Range Interpretation Comments protein, total, serum (test code = 6.7 g/dL 6.0-8.5 2885-2) [facility] Centercalcium, [id number] 11:59:00 Test Item Value Reference Range Interpretation Comments calcium, serum (test code = 1999-8) 9.6 mg/dL 8.7-10.2 [facility] Centercarbon dioxide, venous [id number] 11:59:00 Test Item Value Reference Range Interpretation Comments carbon dioxide, venous blood (test 22 mmol/L 20-29 code = 7-1) [facility] Healthchloride, [id number] 11:59:00 Test Item Value Reference Range Interpretation Comments chloride, serum (test code = 105 mmol/L 96-106 2075-0) [facility] Healthpotassium, [id number] 11:59:00 Test Item Value Reference Range Interpretation Comments potassium, serum (test code = 4.3 mmol/L 3.5-5.2 2823-3) [facility] Centersodium, [id number] 11:59:00 Test Item Value Reference Range Interpretation Comments sodium, serum (test code = 2951-2) 141 mmol/L 134-144 [facility] Centerurea nitrogen/creatinine ratio, [id number] 11:59:00 Test Item Value Reference Range Interpretation Comments urea nitrogen/creatinine 6 (unknown unit) 9-23 L ratio, serum (test code = 3097-3) [facility] HealtheGFR if [id number] 11:59:00 Test Item Value Reference Range Interpretation Comments eGFR if 124 mL/min/{1.73 m2} >59 (test code = 40096-9) [facility] CenterEstimated Glomerular Filtration Rate (calc)2019-11-22 11:59:00 Test Item Value Reference Range Interpretation Comments Estimated Glomerular 107 mL/min/{1.73 m2} >59 Filtration Rate (calc) (test code = 91836-6) [facility] Centercreatinine, [id number] 11:59:00 Test Item Value Reference Range Interpretation Comments creatinine, serum (test code = 0.80 mg/dL 0.57-1.00 2160-0) [facility] Centerurea nitrogen, [id number] 11:59:00 Test Item Value Reference Range Interpretation Comments urea nitrogen, blood (test code = 5 mg/dL 6-20 L 3094-0) [facility] Centerblood glucose, [id number] 11:59:00 Test Item Value Reference Range Interpretation Comments blood glucose, random (test code = 91 mg/dL 65-99 2339-0) [facility] Centerimmature granulocytes, percentage of total cells, blood 2019-11-22 11:59:00 Test Item Value Reference Range Interpretation Comments immature granulocytes, percentage of 0 % total cells, blood (test code = 00824-8) [facility]bas[facility], [id number] 11:59:00 Test Item Value Reference Range Interpretation Comments basophil count, absolute (test 0.0 x10E3/uL 0.0-0.2 code = 86894-0) [facility] HealthEosinophil Absolute [id number] 11:59:00 Test Item Value Reference Range Interpretation Comments Eosinophil Absolute Count (test 0.2 X10E3/UL 0.0-0.4 code = 51125-7) [facility] Healthmonocyte count, blood, rxfyqktmn4348-85-58 11:59:00 Test Item Value Reference Range Interpretation Comments monocyte count, blood, automated 0.7 X10E3/UL 0.1-0.9 (test code = 742-7) [facility] Centerlymphocyte count, blood, [id number] 11:59:00 Test Item Value Reference Range Interpretation Comments lymphocyte count, blood, 2.8 X10E3/UL 0.7-3.1 automated (test code = 731-0) [facility] CenterAbsolute Bebbclpbofc8474-44-31 11:59:00 Test Item Value Reference Range Interpretation Comments Absolute Neutrophils (test code 4.1 X10E3/UL 1.4-7.0 = 97876-4) [facility] Healthbasophils as percent of blood ohzijoyylk9656-35-99 11:59:00 Test Item Value Reference Range Interpretation Comments basophils as percent of blood 0 % leukocytes (test code = 707-0) [facility] Healtheosinophils as percent of blood lrxkkgyczy2402-62-85 11:59:00 Test Item Value Reference Range Interpretation Comments eosinophils as percent of blood 3 % leukocytes (test code = 713-8) [facility] Healthmonocytes as percent of blood yyuhhqkmib9767-95-92 11:59:00 Test Item Value Reference Range Interpretation Comments monocytes as percent of blood 9 % leukocytes (test code = 5905-5) [facility] Centerlymphocytes as percent of blood ftvpxmmebm7255-98-37 11:59:00 Test Item Value Reference Range Interpretation Comments lymphocytes as percent of blood 36 % leukocytes (test code = 736-9) [facility] Centerneutrophils as percent of blood uciaquhbyb4800-88-32 11:59:00 Test Item Value Reference Range Interpretation Comments neutrophils as percent of blood 52 % leukocytes (test code = 770-8) [facility] Centerplatelet [id number] 11:59:00 Test Item Value Reference Range Interpretation Comments platelet count (test code = 245 X10E3/UL 150-450 777-3) [facility] Centerred blood cell distribution [id number] 11:59:00 Test Item Value Reference Range Interpretation Comments red blood cell distribution width 13.3 % 11.7-15.4 (test code = 788-0) [facility] corpuscular hemoglobin concentration, [id number] 11:59:00 Test Item Value Reference Range Interpretation Comments mean corpuscular hemoglobin 32.8 G/DL 31.5-35.7 concentration, RBC (test code = 786-4) [facility] corpuscular hemoglobin, [id number] 11:59:00 Test Item Value Reference Range Interpretation Comments mean corpuscular hemoglobin, RBC 28.0 pg 26.6-33.0 (test code = 785-6) [facility] corpuscular volume, [id number] 11:59:00 Test Item Value Reference Range Interpretation Comments mean corpuscular volume, RBC (test code 85 fL 79-97 = 787-2) [facility] Centerhematocrit, [id number] 11:59:00 Test Item Value Reference Range Interpretation Comments hematocrit, blood (test code = 4544-3) 36.9 % 34.0-46.6 [facility] Centerhemoglobin, [id number] 11:59:00 Test Item Value Reference Range Interpretation Comments hemoglobin, blood (test code = 12.1 g/dL 11.1-15.9 718-7) [facility] Centererythrocyte (RBC) [id number] 11:59:00 Test Item Value Reference Range Interpretation Comments erythrocyte (RBC) count (test 4.32 X10E6/UL 3.77-5.28 code = 789-8) [facility] Centerleukocyte count, [id number] 11:59:00 Test Item Value Reference Range Interpretation Comments leukocyte count, blood (test 7.9 X10E3/UL 3.4-10.8 code = 6690-2) [facility] Healthtestosterone, serum, [id number] 12:06:00 Test Item Value Reference Range Interpretation Comments testosterone, serum, free (test 6.5 pg/mL code = 2991-8) [facility] Centertestosterone, [id number] 12:06:00 Test Item Value Reference Range Interpretation Comments testosterone, total (test code = 398 ng/dL 2986-8) [facility] CenterLDL cholesterol, [id number] 12:06:00 Test Item Value Reference Range Interpretation Comments LDL cholesterol, serum (test code = 88 mg/dL 0-109 2088-1) [facility] Centervery low density vfoshrywoxnu6515-38-03 12:06:00 Test Item Value Reference Range Interpretation Comments very low density lipoproteins (test 10 mg/dL 5-40 code = 1-7) [facility] CenterHDL cholesterol, [id number] 12:06:00 Test Item Value Reference Range Interpretation Comments HDL cholesterol, serum (test code = 72 mg/dL >39 2084-9) [facility] Centertriglyceride, serum, [id number] 12:06:00 Test Item Value Reference Range Interpretation Comments triglyceride, serum, fasting (test 51 mg/dL 0-89 code = 2571-8) [facility] Centercholesterol, [id number] 12:06:00 Test Item Value Reference Range Interpretation Comments cholesterol, serum (test code = 170 mg/dL 100-169 H 2092-3) [facility] Centeralanine aminotransferase (SGPT), [id number] 12:06:00 Test Item Value Reference Range Interpretation Comments alanine aminotransferase (SGPT), serum 10 1/L 0-32 (test code = 1742-6) [facility] Centeraspartate aminotransferase (SGOT), [id number] 12:06:00 Test Item Value Reference Range Interpretation Comments aspartate aminotransferase (SGOT), 16 1/L 0-40 serum (test code = 1920-8) [facility] Centeralkaline phosphatase, [id number] 12:06:00 Test Item Value Reference Range Interpretation Comments alkaline phosphatase, serum (test code 59 1/L 39-117 = 1783-0) [facility] Centerbilirubin, serum, [id number] 12:06:00 Test Item Value Reference Range Interpretation Comments bilirubin, serum, total (test code <0.2 mg/dL 0.0-1.2 = 1975-2) [facility] Healthalbumin/globulin ratio, [id number] 12:06:00 Test Item Value Reference Range Interpretation Comments albumin/globulin ratio, 2.0 (unknown unit) 1.2-2.2 serum (test code = 1759-0) [facility] Healthglobulin, [id number] 12:06:00 Test Item Value Reference Range Interpretation Comments globulin, serum (test code 2.4 (unknown unit) 1.5-4.5 = 2336-6) [facility] Healthalbumin, [id number] 12:06:00 Test Item Value Reference Range Interpretation Comments albumin, serum (test code = 1751-7) 4.8 g/dL 3.5-5.5 [facility] Healthprotein, total, [id number] 12:06:00 Test Item Value Reference Range Interpretation Comments protein, total, serum (test code = 7.2 g/dL 6.0-8.5 2885-2) [facility] Healthcalcium, [id number] 12:06:00 Test Item Value Reference Range Interpretation Comments calcium, serum (test code = 1999-8) 9.9 mg/dL 8.7-10.2 [facility] Centercarbon dioxide, venous [id number] 12:06:00 Test Item Value Reference Range Interpretation Comments carbon dioxide, venous blood (test 25 mmol/L 20-29 code = 2026-1) [facility] Healthchloride, yufko6524-15-07 12:06:00 Test Item Value Reference Range Interpretation Comments chloride, serum (test code = 102 mmol/L 96-106 5-0) [facility] Healthpotassium, [id number] 12:06:00 Test Item Value Reference Range Interpretation Comments potassium, serum (test code = 4.9 mmol/L 3.5-5.2 2823-3) [facility] Centersodium, [id number] 12:06:00 Test Item Value Reference Range Interpretation Comments sodium, serum (test code = 2951-2) 141 mmol/L 134-144 [facility] Centerurea nitrogen/creatinine ratio, [id number] 12:06:00 Test Item Value Reference Range Interpretation Comments urea nitrogen/creatinine 12 (unknown unit) 9-23 ratio, serum (test code = 3097-3) [facility] HealtheGFR if Jfuaoxhc6395-99-86 12:06:00 Test Item Value Reference Range Interpretation Comments eGFR if 136 mL/min/{1.73 m2} >59 (test code = 55806-5) [facility] CenterEstimated Glomerular Filtration Rate (calc)2019-10-18 12:06:00 Test Item Value Reference Range Interpretation Comments Estimated Glomerular 118 mL/min/{1.73 m2} >59 Filtration Rate (calc) (test code = 22195-9) [facility] Centercreatinine, [id number] 12:06:00 Test Item Value Reference Range Interpretation Comments creatinine, serum (test code = 0.74 mg/dL 0.57-1.00 2160-0) [facility] Centerurea nitrogen, [id number] 12:06:00 Test Item Value Reference Range Interpretation Comments urea nitrogen, blood (test code = 9 mg/dL 6-20 3094-0) [facility] Centerblood glucose, [id number] 12:06:00 Test Item Value Reference Range Interpretation Comments blood glucose, random (test code = 90 mg/dL 65-99 2339-0) [facility] Centerimmature granulocytes, percentage of total cells, blood 2019-10-18 12:06:00 Test Item Value Reference Range Interpretation Comments immature granulocytes, percentage of 0 % total cells, blood (test code = 86442-0) [facility] Centerbasophil count, szfdgkry9577-01-57 12:06:00 Test Item Value Reference Range Interpretation Comments basophil count, absolute (test 0.0 x10E3/uL 0.0-0.2 code = 14540-3) [facility] CenterEosinophil Absolute [id number] 12:06:00 Test Item Value Reference Range Interpretation Comments Eosinophil Absolute Count (test 0.3 X10E3/UL 0.0-0.4 code = 82617-9) [facility] Centermonocyte count, blood, menognkkp8166-43-08 12:06:00 Test Item Value Reference Range Interpretation Comments monocyte count, blood, automated 0.9 X10E3/UL 0.1-0.9 (test code = 742-7) [facility] Centerlymphocyte count, blood, zeadwxgqf3985-61-53 12:06:00 Test Item Value Reference Range Interpretation Comments lymphocyte count, blood, 2.8 X10E3/UL 0.7-3.1 automated (test code = 731-0) [facility] CenterAbsolute Scrfilocapz7165-90-47 12:06:00 Test Item Value Reference Range Interpretation Comments Absolute Neutrophils (test code 5.7 X10E3/UL 1.4-7.0 = 51096-5) [facility] Centerbasophils as percent of blood dcofuudjyi6099-68-70 12:06:00 Test Item Value Reference Range Interpretation Comments basophils as percent of blood 0 % leukocytes (test code = 707-0) [facility] Centereosinophils as percent of blood cszgymptur3143-35-71 12:06:00 Test Item Value Reference Range Interpretation Comments eosinophils as percent of blood 3 % leukocytes (test code = 713-8) [facility] Centermonocytes as percent of blood amkcofqzzi4269-71-34 12:06:00 Test Item Value Reference Range Interpretation Comments monocytes as percent of blood 9 % leukocytes (test code = 5905-5) [facility] Centerlymphocytes as percent of blood vwujktfgce1008-22-04 12:06:00 Test Item Value Reference Range Interpretation Comments lymphocytes as percent of blood 28 % leukocytes (test code = 736-9) [facility] Centerneutrophils as percent of blood ifhmcyxxap0234-59-93 12:06:00 Test Item Value Reference Range Interpretation Comments neutrophils as percent of blood 60 % leukocytes (test code = 770-8) [facility] Centerplatelet [id number] 12:06:00 Test Item Value Reference Range Interpretation Comments platelet count (test code = 243 X10E3/UL 150-450 777-3) [facility] Centerred blood cell distribution [id number] 12:06:00 Test Item Value Reference Range Interpretation Comments red blood cell distribution width 13.9 % 11.7-15.4 (test code = 788-0) [facility] Centermean corpuscular hemoglobin concentration, [id number] 12:06:00 Test Item Value Reference Range Interpretation Comments mean corpuscular hemoglobin 33.5 G/DL 31.5-35.7 concentration, RBC (test code = 786-4) [facility] Centermean corpuscular hemoglobin, [id number] 12:06:00 Test Item Value Reference Range Interpretation Comments mean corpuscular hemoglobin, RBC 28.5 pg 26.6-33.0 (test code = 785-6) [facility]an corpuscular volume, [id number] 12:06:00 Test Item Value Reference Range Interpretation Comments mean corpuscular volume, RBC (test code 85 fL 79-97 = 787-2) [facility] Centerhematocrit, [id number] 12:06:00 Test Item Value Reference Range Interpretation Comments hematocrit, blood (test code = 4544-3) 37.3 % 34.0-46.6 [facility] Centerhemoglobin, [id number] 12:06:00 Test Item Value Reference Range Interpretation Comments hemoglobin, blood (test code = 12.5 g/dL 11.1-15.9 718-7) [facility] Centererythrocyte (RBC) [id number] 12:06:00 Test Item Value Reference Range Interpretation Comments erythrocyte (RBC) count (test 4.38 X10E6/UL 3.77-5.28 code = 789-8) [facility] Centerleukocyte count, [id number] 12:06:00 Test Item Value Reference Range Interpretation Comments leukocyte count, blood (test 9.7 X10E3/UL 3.4-10.8 code = 6690-2) [facility] Centervitamin D 25-hydroxy, [id number] 11:16:00 Test Item Value Reference Range Interpretation Comments vitamin D 25-hydroxy, serum (test 26.5 ng/mL 30.0-100.0 L code = 74109-0) [facility] Centerrapid plasma reagin antibody, [id number] 11:16:00 Test Item Value Reference Range Interpretation Comments rapid plasma reagin antibody, Non Reactive Non Reactive serum (test code = 5291-0) [facility] Centerprolactin, [id number] 11:16:00 Test Item Value Reference Range Interpretation Comments prolactin, serum (test code = 9.2 ng/mL 4.8-23.3 2842-3) [facility] Centerhemoglobin A1C, blood, as % of total zkjowglqpq8293-02-17 11:16:00 Test Item Value Reference Range Interpretation Comments hemoglobin A1C, blood, as % of total 5.5 % 4.8-5.6 hemoglobin (test code = 4548-4) [facility] Centertestosterone, serum, [id number] 11:16:00 Test Item Value Reference Range Interpretation Comments testosterone, serum, free (test 2.3 pg/mL code = 2991-8) [facility] Centertestosterone, [id number] 11:16:00 Test Item Value Reference Range Interpretation Comments testosterone, total (test code = 53 ng/dL 2986-8) [facility] CenterLDL cholesterol, edcsk4757-33-88 11:16:00 Test Item Value Reference Range Interpretation Comments LDL cholesterol, serum (test code = 84 mg/dL 0-109 2088-1) [facility] Centervery low density [id number] 11:16:00 Test Item Value Reference Range Interpretation Comments very low density lipoproteins (test 6 mg/dL 5-40 code = 1-7) [facility]HDL [facility], [id number] 11:16:00 Test Item Value Reference Range Interpretation Comments HDL cholesterol, serum (test code = 90 mg/dL >39 2084-9) [facility]ertriglyceride, serum, [id number] 11:16:00 Test Item Value Reference Range Interpretation Comments triglyceride, serum, fasting (test 32 mg/dL 0-89 code = 2571-8) [facility] Centercholesterol, [id number] 11:16:00 Test Item Value Reference Range Interpretation Comments cholesterol, serum (test code = 180 mg/dL 100-169 H 2092-3) [facility] Centeralanine aminotransferase (SGPT), [id number] 11:16:00 Test Item Value Reference Range Interpretation Comments alanine aminotransferase (SGPT), serum 10 1/L 0-32 (test code = 1742-6) [facility] Centeraspartate aminotransferase (SGOT), [id number] 11:16:00 Test Item Value Reference Range Interpretation Comments aspartate aminotransferase (SGOT), 23 1/L 0-40 serum (test code = 1920-8) [facility] Healthalkaline phosphatase, [id number] 11:16:00 Test Item Value Reference Range Interpretation Comments alkaline phosphatase, serum (test code 68 1/L 39-117 = 1783-0) [facility] Healthbilirubin, serum, [id number] 11:16:00 Test Item Value Reference Range Interpretation Comments bilirubin, serum, total (test code 0.3 mg/dL 0.0-1.2 = 1975-2) [facility] Healthalbumin/globulin ratio, [id number] 11:16:00 Test Item Value Reference Range Interpretation Comments albumin/globulin ratio, 2.2 (unknown unit) 1.2-2.2 serum (test code = 1759-0) [facility] Healthglobulin, [id number] 11:16:00 Test Item Value Reference Range Interpretation Comments globulin, serum (test code 2.4 (unknown unit) 1.5-4.5 = 2336-6) [facility] Healthalbumin, [id number] 11:16:00 Test Item Value Reference Range Interpretation Comments albumin, serum (test code = 1751-7) 5.2 g/dL 3.5-5.5 [facility] Centerprotein, total, [id number] 11:16:00 Test Item Value Reference Range Interpretation Comments protein, total, serum (test code = 7.6 g/dL 6.0-8.5 2885-2) [facility] Healthcalcium, [id number] 11:16:00 Test Item Value Reference Range Interpretation Comments calcium, serum (test code = 1999-8) 9.8 mg/dL 8.7-10.2 [facility] Centercarbon dioxide, venous [id number] 11:16:00 Test Item Value Reference Range Interpretation Comments carbon dioxide, venous blood (test 23 mmol/L 20- code = 2026-1) [facility] Healthchloride, [id number] 11:16:00 Test Item Value Reference Range Interpretation Comments chloride, serum (test code = 100 mmol/L 96-106 5-0) [facility] Centerpotassium, [id number] 11:16:00 Test Item Value Reference Range Interpretation Comments potassium, serum (test code = 4.3 mmol/L 3.5-5.2 2823-3) [facility] Centersodium, [id number] 11:16:00 Test Item Value Reference Range Interpretation Comments sodium, serum (test code = 2951-2) 140 mmol/L 134-144 [facility] Centerurea nitrogen/creatinine ratio, [id number] 11:16:00 Test Item Value Reference Range Interpretation Comments urea nitrogen/creatinine 14 (unknown unit) 9-23 ratio, serum (test code = 3097-3) [facility] CentereGFR if [id number] 11:16:00 Test Item Value Reference Range Interpretation Comments eGFR if 145 mL/min/{1.73 m2} >59 (test code = 55618-0) [facility] CenterEstimated Glomerular Filtration Rate (calc)2019-08-23 11:16:00 Test Item Value Reference Range Interpretation Comments Estimated Glomerular 126 mL/min/{1.73 m2} >59 Filtration Rate (calc) (test code = 83630-0) [facility] Centercreatinine, [id number] 11:16:00 Test Item Value Reference Range Interpretation Comments creatinine, serum (test code = 0.70 mg/dL 0.57-1.00 2160-0) [facility] Centerurea nitrogen, [id number] 11:16:00 Test Item Value Reference Range Interpretation Comments urea nitrogen, blood (test code = 10 mg/dL 6-20 3094-0) [facility] Centerblood glucose, [id number] 11:16:00 Test Item Value Reference Range Interpretation Comments blood glucose, random (test code = 85 mg/dL 65-99 2339-0) [facility] Centerimmature granulocytes, percentage of total cells, blood 2019-08-23 11:16:00 Test Item Value Reference Range Interpretation Comments immature granulocytes, percentage of 0 % total cells, blood (test code = 50028-2) [facility] Centerbasophil count, [id number] 11:16:00 Test Item Value Reference Range Interpretation Comments basophil count, absolute (test 0.0 x10E3/uL 0.0-0.2 code = 60161-8) [facility] [id number] 11:16:00 Test Item Value Reference Range Interpretation Comments Eosinophil Absolute Count (test 0.1 X10E3/UL 0.0-0.4 code = 97497-1) [facility] Healthmonocyte count, blood, [id number] 11:16:00 Test Item Value Reference Range Interpretation Comments monocyte count, blood, automated 0.5 X10E3/UL 0.1-0.9 (test code = 742-7) [facility] Healthlymphocyte count, blood, [id number] 11:16:00 Test Item Value Reference Range Interpretation Comments lymphocyte count, blood, 2.3 X10E3/UL 0.7-3.1 automated (test code = 731-0) [facility] HealthAbsolute [id number] 11:16:00 Test Item Value Reference Range Interpretation Comments Absolute Neutrophils (test code 4.6 X10E3/UL 1.4-7.0 = 69347-0) [facility] Healthbasophils as percent of blood [id number] 11:16:00 Test Item Value Reference Range Interpretation Comments basophils as percent of blood 0 % leukocytes (test code = 707-0) [facility] Healtheosinophils as percent of blood [id number] 11:16:00 Test Item Value Reference Range Interpretation Comments eosinophils as percent of blood 1 % leukocytes (test code = 713-8) [facility] Healthmonocytes as percent of blood [id number] 11:16:00 Test Item Value Reference Range Interpretation Comments monocytes as percent of blood 7 % leukocytes (test code = 5905-5) [facility] Healthlymphocytes as percent of blood ihhvcikyqu6840-07-51 11:16:00 Test Item Value Reference Range Interpretation Comments lymphocytes as percent of blood 31 % leukocytes (test code = 736-9) [facility] Healthneutrophils as percent of blood pleplanmoy3548-49-45 11:16:00 Test Item Value Reference Range Interpretation Comments neutrophils as percent of blood 61 % leukocytes (test code = 770-8) [facility] Healthplatelet [id number] 11:16:00 Test Item Value Reference Range Interpretation Comments platelet count (test code = 224 X10E3/UL 150-450 777-3) [facility] Centerred blood cell distribution [id number] 11:16:00 Test Item Value Reference Range Interpretation Comments red blood cell distribution width 13.7 % 12.3-15.4 (test code = 788-0) [facility] corpuscular hemoglobin concentration, [id number] 11:16:00 Test Item Value Reference Range Interpretation Comments mean corpuscular hemoglobin 33.0 G/DL 31.5-35.7 concentration, RBC (test code = 786-4) [facility] corpuscular hemoglobin, [id number] 11:16:00 Test Item Value Reference Range Interpretation Comments mean corpuscular hemoglobin, RBC 28.2 pg 26.6-33.0 (test code = 785-6) [facility] corpuscular volume, [id number] 11:16:00 Test Item Value Reference Range Interpretation Comments mean corpuscular volume, RBC (test code 86 fL 79-97 = 787-2) [facility] Centerhematocrit, [id number] 11:16:00 Test Item Value Reference Range Interpretation Comments hematocrit, blood (test code = 4544-3) 40.9 % 34.0-46.6 [facility] Centerhemoglobin, [id number] 11:16:00 Test Item Value Reference Range Interpretation Comments hemoglobin, blood (test code = 13.5 g/dL 11.1-15.9 718-7) [facility] Centererythrocyte (RBC) [id number] 11:16:00 Test Item Value Reference Range Interpretation Comments erythrocyte (RBC) count (test 4.78 X10E6/UL 3.77-5.28 code = 789-8) [facility] Centerleukocyte count, [id number] 11:16:00 Test Item Value Reference Range Interpretation Comments leukocyte count, blood (test 7.6 X10E3/UL 3.4-10.8 code = 6690-2) [facility] Centerthyroxine, serum, [id number] 11:16:00 Test Item Value Reference Range Interpretation Comments thyroxine, serum, free (test code 1.28 ng/dL 0.93-1.60 = 3024-7) [facility] Healththyroid stimulating hormone, [id number] 11:16:00 Test Item Value Reference Range Interpretation Comments thyroid stimulating hormone, 1.810 u[IU]/mL 0.450-4.500 serum (test code = 3016-3) [facility] Healthhepatitis C antibody, [id number] 11:16:00 Test Item Value Reference Range Interpretation Comments hepatitis C antibody, serum (test code <0.1 0.0-0.9 = 5199-5) [facility] Healthhepatitis A antibody, [id number] 11:16:00 Test Item Value Reference Range Interpretation Comments hepatitis A antibody, total (test Positive Negative A code = 75) [facility] HealthHIV-CMIA (Chemiluminescent Microparticle Immuno Assay) 2019-08-23 11:16:00 Test Item Value Reference Range Interpretation Comments HIV-CMIA (Chemiluminescent Non Reactive Non Reactive Microparticle Immuno Assay) (test code = 080879) [facility] Healthestradiol, [id number] 11:16:00 Test Item Value Reference Range Interpretation Comments estradiol, serum (test code = 286) 46.3 pg/mL [facility] Healthhepatitis B surface [id number] 11:16:00 Test Item Value Reference Range Interpretation Comments hepatitis B surface antibody (test Reactive code = 78) [facility] Centerhepatitis B core antibody, [id number] 11:16:00 Test Item Value Reference Range Interpretation Comments hepatitis B core antibody, total Negative Negative (test code = 77) [facility] Healthhepatitis B surface [id number] 11:16:00 Test Item Value Reference Range Interpretation Comments hepatitis B surface antigen (test Negative Negative code = 79) [facility] Healthhepatitis A antibody, [id number] 11:16:00 Test Item Value Reference Range Interpretation Comments hepatitis A antibody, total (test Positive Negative A code = 26803-3) [facility] HealthHIV-CMIA (Chemiluminescent Microparticle Immuno Assay) 2019-08-23 11:16:00 Test Item Value Reference Range Interpretation Comments HIV-CMIA (Chemiluminescent Non Reactive Non Reactive Microparticle Immuno Assay) (test code = 90000-2) [facility] Healthestradiol, [id number] 11:16:00 Test Item Value Reference Range Interpretation Comments estradiol, serum (test code = 286) 46.3 pg/mL [facility] Centerhepatitis C antibody, [id number] 11:16:00 Test Item Value Reference Range Interpretation Comments hepatitis C antibody, serum (test code <0.1 0.0-0.9 = 11070-9) [facility] Centerhepatitis B surface [id number] 11:16:00 Test Item Value Reference Range Interpretation Comments hepatitis B surface antibody (test Reactive code = 05388-2) [facility] Centerhepatitis B core antibody, [id number] 11:16:00 Test Item Value Reference Range Interpretation Comments hepatitis B core antibody, total Negative Negative (test code = 62413-3) [facility] Centerhepatitis B surface [id number] 11:16:00 Test Item Value Reference Range Interpretation Comments hepatitis B surface antigen (test Negative Negative code = 51259-4) [facility] CenterNeisseria gonorrhoeae DNA [id number] 11:11:00 Test Item Value Reference Range Interpretation Comments Neisseria gonorrhoeae DNA probe Negative Negative (test code = 43114-5) [facility] Centerchlamydia DNA [id number] 11:11:00 Test Item Value Reference Range Interpretation Comments chlamydia DNA probe (test code = Negative Negative 41650-8) [facility] CenterNeisseria gonorrhoeae DNA [id number] 11:11:00 Test Item Value Reference Range Interpretation Comments Neisseria gonorrhoeae DNA probe Negative Negative (test code = 78048-4) [facility] CenterXR CHEST 1 VIEW PORTABLE 2018-09-11 02:30:46XR CHEST 1 VIEW PORTABLE Location:[address] services provided 09/11/2018 2:30 AMIndication:s/p mvcComparison:Not availableFindings:The lungs are equally and symmetrically inflated. The trachea ismidline. The cardiac silhouette is normal in size. No acute bony abnormality.Impression:No acute cardiopulmonary disease. XR HIP RIGHT UNILATERAL 2 VIEWS2018-09-11 02:30:14XR HIP RIGHT UNILATERAL 2 VIEWSLocation:[address] services acgqtjds84/2/2018 2:29 AMIndication:s/p mvc with painComparison:Not availableFindings:No acute fracture or dislocation. Joint spaces are preserved. Bonymineralization appears normal. The soft tissues are radiographically normal.Impression:No acute bony abnormality.XR SPINE CERVICAL COMPLETE2018-09-11 02:29:43XR SPINE CERVICAL COMPLETE*WW*Location:[address] services provided 09/11/2018 2:29 AMIndication:s/p mvc with painComparison:Not availableFindings:Normal cervical lordosis and vertebral body alignment. Intervertebraldisc spaces and vertebral body heights appear normal. The facets and spinousprocesses appear well aligned. The odontoid and lateral masses of C1 aresymmetric.Impression:No acute bony abn ormality of the cervical spine.XR SPINE LUMBAR COMPLETE2018-09-11 02:28:58XR SPINE LUMBAR COMPLETE*WW*Location:[address] services ldgvzvbo17/2/2018 2:28 AMIndication:TraumaComparison:Not availableFindings:Normal lumbar lordosis and vertebral body alignment is maintained.Intervertebral disc spaces and vertebral body heights appear normal. The facetsand spinous processes appear well aligned.Impression:No acute bony abnormality.DRUGS OF ABUSE 2018-09-11 02:21:00 Test Item Value Reference Range Interpretation Comments DRUG SCRN (test code = URINE DRUG HDOA) SCREEN This is an unconfirmed screening result and should not be used for non-medical purposes CANNABINOD (test code POSITIVE NEGATIVE A = 88C) AMPHETAMINE (test code Negative NEGATIVE = 84A) BENZODIAZP (test code Negative NEGATIVE = 86A) BARBITURAT (test code Negative NEGATIVE = 85A) OPIATES (test code = Negative NEGATIVE 92B) COCAINE (test code = Negative NEGATIVE 87A) PHENCYCLID (test code Negative NEGATIVE = 66A) METHADONE (test code = Negative NEGATIVE 64A) DOAH (test code = DOAH.) URINE DRUG SCREEN Cut-off values are as follows: Cannabinoids 50 ng/mL Cocaine 300 ng/mL Amphetamines 1000 ng/mL Phencyclidine 25 ng/mL Benzodiazepines 200 ng.mL Methadone 300 ng/mL Barbiturates 200 ng/mL Opiates 2000 ng/mL URINALYSIS WITH MICRO 2018-09-11 02:15:00 Test Item Value Reference Range Interpretation [...] code = USPERM) /HPF NONE URINE MONOCLONAL 2018-09-11 02:12:00 Test Item Value Reference Range Interpretation Comments PREG UR (test code = PGU) NEGATIVE NEGATIVE
[2022-11-13 14:08] LABS: Urine Blood 2+ (Negative); Urine Glucose Negative (Negative); Urine Protein Negative (Negative); Urine pH 8.5 (5.0-7.0)
[2022-11-13] MEDS ORDERED: NA CHLORIDE 0.9% 1,000 ML ONE (14:19)
[2022-11-13] MEDS ORDERED: ONDANSETRON 4 MG/2 ML VIAL ONE (14:20)
[2022-11-13] MEDS ORDERED: KETOROLAC 30 MG/ML INJ ONE (14:20)
[2022-11-13 14:30] LABS: Absolute Lymphocytes (CBC) 2.8 K/uL (0.7-4.9); Hematocrit 48.5 % (36.0-45.0); Lymphocytes % 32.4 % (15.3-44.8); MCV 90.5 fL (80-100); MPV 8.5 fL (7.6-11.3); RBC Red Blood Cell Count 5.35 M/uL (3.86-4.86)
[2022-11-13 14:43] LABS: Albumin 4.5 g/dL (3.4-5.0); Bilirubin Total 0.7 mg/dL (0.2-1.0); Potassium 3.5 mmol/L (3.5-5.1); Protein, Total 8.2 g/dL (6.4-8.2)
--- NOTE | 2022-11-13 15:15 | RAD REPORT ---
EXAM DESCRIPTION: CT - Abdomen Pelvis W Contrast - 11/13/2022 2:59 pm CLINICAL HISTORY: Abdominal pain COMPARISON: 2021 TECHNIQUE: Computed axial tomography of the abdomen pelvis was obtained. 100 cc Isovue-300 was admin istered intravenously. Oral contrast was not requested which limits evaluation of bowel and appendix All CT scans are performed using dose optimization technique as appropriate and may include automated exposure control or mA/KV adjustment according to patient size. FINDINGS: The liver, spleen, pancreas, adrenal and kidneys appear unremarkable. There is no evidence of diverticulitis. Air bubble within the bladder Abnormal appendix is not seen. No adnexal mass. Small to moderate umbilical hernia contains fat. The neck measures 1 centimeter IMPRESSION: Air bubble within the bladder could be secondary to recent instrumentation. Infection is another consideration but probably less likely. This should be correlated clinically
[2022-11-13 15:38] LABS: Urine Bacteria <20 /HPF (<20); Urine Mucus Slight /HPF (None Seen); Urine RBC <5 /HPF (None Seen)
[2022-11-13] MEDS ORDERED: MORPHINE 4 MG/ML SYR ONE (16:30)
--- NOTE | 2022-11-13 16:38 | RAD REPORT ---
EXAM DESCRIPTION: US - Abdomen Exam Limited - 11/13/2022 4:13 pm CLINICAL HISTORY: Abdominal pain. COMPARISON: None. FINDINGS: The gallbladder wall is not thickened. A gallstone is not seen. The biliary tree is normal caliber. IMPRESSION: Unremarkable gallbladder ultrasound.
--- NOTE | 2022-11-13 17:58 | EDPHYS ---
Physician Documentation [facility] Name: Nicolette Solorio Age: 22 yrs Sex: Female : 2000 Arrival Date: 11/13/2022 Time: 13:21 Bed 17 Private MD: ED Physician Parminder Hathaway HPI: 11/13 20:02 This 22 yrs old Female presents to ER via Ambulatory with complaints of Abdominal Pain. kb 20:02 The patient presents with abdominal pain that is diffuse. Onset: The symptoms/episode kb began/occurred yesterday. The symptoms do not radiate. Associated signs and symptoms: Pertinent positives: nausea and vomiting, hematuria. The symptoms are described as constant. Modifying factors: The symptoms are alleviated by nothing, the symptoms are aggravated by nothing. Severity of pain: At its worst the pain was moderate in the emergency department the pain is unchanged. The patient has not experienced similar symptoms in the past. The patient has not recently seen a physician. Patient reports a diffuse abdominal pain that started this morning with slight hematuria. States the hematuria is something that she has at times. Reports this feels similar to ruptured ovarian cyst that she had in the past.. RECORDS SPECIALIST: 15:49 LMP 11/11/2022 kr3 Historical: - Allergies: 15:18 Cottonseed; jl7 - Home Meds: 15:18 Testosterone [Active]; jl7 - PMHx: 15:18 Ovarian Cyst; jl7 - PSHx: 15:18 knee; jl7 - Immunization history:: Adult Immunizations unknown. - Social history:: Smoking status: unknown. ROS: 20:01 Constitutional: Negative for fever, chills, and weight loss. kb 20:01 Abdomen/GI: Positive for abdominal pain, nausea and vomiting, Negative for diarrhea. 20:01 : Positive for hematuria. kb 20:01 All other systems are negative. Exam: 20:01 Constitutional: This is a well developed, well nourished patient who is awake, alert, kb and in no acute distress. Head/Face: Normocephalic, atraumatic. ENT: Moist Mucous membranes Cardiovascular: Regular rate and rhythm with a normal S1 and S2. No gallops, murmurs, or rubs. No pulse deficits. Respiratory: Respirations even and unlabored. No increased work of breathing. Talking in full sentences Skin: Warm, dry with normal turgor. Normal color. MS/ Extremity: Pulses equal, no cyanosis. Neurovascular intact. Full, normal range of motion. Neuro: Awake and alert, GCS 15, oriented to person, place, time, and situation. Moves all extremities. Normal gait. Psych: Awake, alert, with orientation to person, place and time. Behavior, mood, and affect are within normal limits. 20:01 Abdomen/GI: Inspection: abdomen appears normal, Bowel sounds: normal, in all quadrants, Palpation: soft, in all quadrants, moderate abdominal tenderness, in all quadrants. Vital Signs: 15:49 BP 115 / 71; Pulse 51; Resp 15; Pulse Ox 98% ; Pain 6/10; kr3 15:52 Temp 98.6; kr3 16:27 BP 120 / 89; Pulse 58; Resp 16; Pulse Ox 99% on R/A; jl7 17:49 BP 119 / 72; Pulse 60; Resp 18; Pulse Ox 100% on R/A; kr3 18:23 BP 134 / 80; Pulse 67; Resp 18; Pulse Ox 100% on R/A; kr3 MDM: 13:28 Patient medically screened. kb 20:00 Differential diagnosis: appendicitis, cholecystitis, Cholelithiasis, Dysmenorrhea, kb gastritis, gastroesophageal reflux disease, non-specific abd pain, urinary tract infection. Data reviewed: vital signs, nurses notes. Counseling: I had a detailed discussion with the patient and/or guardian regarding: the historical points, exam findings, and any diagnostic results supporting the discharge/admit diagnosis, lab results, radiology results, the need for outpatient follow up, a family practitioner, to return to the emergency department if symptoms worsen or persist or if there are any questions or concerns that arise at home. 20:03 ED course: Patient reports pain had moved from being diffuse to be more upper abdomen kb upon reexamination which is why ultrasound was ordered. Ultrasound was normal as well as CAT scan. Patient will follow-up with gynecology and GI.. 11/13 13:46 Order name: CBC with Diff; Complete Time: 15:02 kb 11/13 13:46 Order name: CMP; Complete Time: 15:02 kb 11/13 13:46 Order name: Lipase; Complete Time: 15:02 kb 11/13 14:08 Order name: Urine Dipstick-Ancillary; Complete Time: 14:13 EDMS 11/13 14:59 Order name: Urine --Ancillary (enter results); Complete Time: 15:47 eb 11/13 15:17 Order name: Urine Microscopic Only; Complete Time: 15:39 kb 11/13 13:46 Order name: CT Abd/Pelvis - IV Contrast Only; Complete Time: 15:16 kb 11/13 13:46 Order name: IV Saline Lock; Complete Time: 14:15 kb 11/13 13:46 Order name: Labs collected and sent; Complete Time: 14:15 kb 11/13 15:45 Order name: US Abdomen Limited; Complete Time: 17:01 kb 11/13 13:46 Order name: Urine Dipstick-Ancillary (obtain specimen); Complete Time: 14:15 kb 11/13 13:46 Order name: Urine Test (obtain specimen); Complete Time: 14:58 kb 11/13 15:46 Order name: Vital Signs; Complete Time: 15:53 kb Administered Medications: 14:21 Drug: NS 0.9% 1000 ml Route: IV; Rate: 1 bolus; Site: left antecubital; ko1 17:10 Follow up: Response: No adverse reaction; IV Status: Completed infusion; IV Intake: kr3 1000ml 14:22 Drug: Zofran (Ondansetron) 4 mg Route: IVP; Site: right antecubital; ko1 17:10 Follow up: Response: No adverse reaction kr3 14:23 Drug: TORadol - (ketorolac) 15 mg Route: IVP; Site: right antecubital; ko1 17:10 Follow up: Response: No adverse reaction kr3 16:37 Drug: morphine 4 mg Route: IVP; Infused Over: 4 mins; Site: right antecubital; jl7 19:31 Follow up: Response: No adverse reaction kr3 19:31 Follow up: Response: No adverse reaction; RASS: Alert and Calm (0) kr3 Disposition: 11/14 07:16 Co-signature as Attending Physician, Parminder Hathaway MD I reviewed the patient's care rn provided by the Advanced Practice Provider and agree with the diagnosis and treatment plan. Disposition Summary: 11/13/22 17:57 Discharge Ordered Location: Home kb Condition: Stable kb Diagnosis - Abdominal pain, Generalized kb Followup: kb - With: Emergency Department - When: As needed - Reason: Worsening of condition Followup: kb - With: Private Physician - When: 2 - 3 days - Reason: Recheck today's complaints, Continuance of care, Re-evaluation by your physician Discharge Instructions: - Discharge Summary Sheet kb - Abdominal Pain, Adult, [id number] kb Forms: - Medication Reconciliation Form kb - Thank You Letter kb - Antibiotic Education kb - Prescription Opioid Use kb - Work release form eb Prescriptions: - Protonix 40 mg Oral Tablet - take 1 tablet by ORAL route once daily; 30 tablet; Refills: 0, Product kb Selection Permitted - Zofran 4 mg Oral Tablet - take 1 tablet by ORAL route every 6 hours As needed; 20 tablet; Refills: 0, kb Product Selection Permitted - dicyclomine 20 mg Oral Tablet - take 1 tablet by ORAL route 4 times per day As needed; 20 tablet; Refills: 0, kb Product Selection Permitted Signatures: Dispatcher [employer] EDMS Gale Bettencourt, ISATU-C COMPUTER AIDED DESIGN DESIGNER-Parminder Garrido MD MD rn Leal, Jahala RN RN jl7 Jen Amin RN RN ko1 Tayla Pagan RN kr3 Corrections: (The following items were deleted from the chart) 11/13 20:01 20:01 Abdomen/GI: Positive for abdominal pain, Negative for nausea, vomiting, and kb diarrhea, kb 20:01 20:01 All other systems are negative, kb kb
--- NOTE | 2022-11-13 17:58 | ER ---
Nurse's Notes [facility] Name: Nicolette Solorio Age: 22 yrs Sex: Female : 2000 Arrival Date: 11/13/2022 Time: 13:21 Bed 17 Private MD: Diagnosis: Abdominal pain, Generalized Presentation: 11/13 14:00 Chief complaint: Patient states: Abdominal Pain with N/V and hematuria x 1 day, Pt jl7 requesting to be addressed as "[place]". 14:00 Method Of Arrival: Ambulatory jl7 14:00 Coronavirus screen: At this time, the client does not indicate any symptoms associated jl7 with coronavirus-19. Ebola Screen: No symptoms or risks identified at this time. Initial Sepsis Screen: Does the patient meet any 2 criteria? No. Patient's initial sepsis screen is negative. Does the patient have a suspected source of infection? No. Patient's initial sepsis screen is negative. Risk Assessment: Do you want to hurt yourself or someone else? Patient reports no desire to harm self or others. Onset of symptoms was November 12, 2022. 14:00 Acuity: VIANEY 3 jl7 Triage Assessment: 19:28 General: Appears in no apparent distress. comfortable, Behavior is calm, cooperative, kr3 appropriate for age. General: Appears distressed, uncomfortable. Pain: Complains of pain in right lower quadrant and left lower quadrant. C.O.D. CLERK: 15:49 LMP 11/11/2022 kr3 Historical: - Allergies: 15:18 Cottonseed; jl7 - Home Meds: 15:18 Testosterone [Active]; jl7 - PMHx: 15:18 Ovarian Cyst; jl7 - PSHx: 15:18 knee; jl7 - Immunization history:: Adult Immunizations unknown. - Social history:: Smoking status: unknown. Screenin:00 [facility] ED Fall Risk Assessment (Adult) History of falling in the last 3 months, kr3 including since admission No falls in past 3 months (0 pts) Confusion or Disorientation No (0 pts) Intoxicated or Sedated No (0 pts) Impaired Gait No (0 pts) Mobility Assist Device Used No (0 pt) Altered Elimination No (0 pt) Score/Fall Risk Level 0 - 2 = Low Risk. Abuse screen: Denies threats or abuse. Nutritional screening: No deficits noted. Tuberculosis screening: No symptoms or risk factors identified. Assessment: 15:30 Reassessment: Patient and/or family updated on plan of care and expected duration. Pain jl7 level reassessed. Patient states symptoms have not improved. 16:36 Reassessment: Patient and/or family updated on plan of care and expected duration. Pain jl7 level reassessed. patient states the pain is 7/10 Patient states symptoms have not improved. 17:30 Reassessment: Patient appears in no apparent distress at this time. Patient and/or kr3 family updated on plan of care and expected duration. Pain level reassessed. Patient is alert, oriented x 3, equal unlabored respirations, skin warm/dry/pink. 18:23 Reassessment: Patient appears in no apparent distress at this time. Patient and/or kr3 family updated on plan of care and expected duration. Pain level reassessed. Patient is alert, oriented x 3, equal unlabored respirations, skin warm/dry/pink. 19:29 GI: kr3 Vital Signs: 15:49 BP 115 / 71; Pulse 51; Resp 15; Pulse Ox 98% ; Pain 6/10; kr3 15:52 Temp 98.6; kr3 16:27 BP 120 / 89; Pulse 58; Resp 16; Pulse Ox 99% on R/A; jl7 17:49 BP 119 / 72; Pulse 60; Resp 18; Pulse Ox 100% on R/A; kr3 18:23 BP 134 / 80; Pulse 67; Resp 18; Pulse Ox 100% on R/A; kr3 ED Course: 13:21 Patient arrived in ED. am2 13:28 Gale Bettencourt FNP-C is PHCP. kb 13:28 Parminder Hathaway MD is Attending Physician. kb 14:15 CBC with Diff Sent. ko1 14:15 CMP Sent. ko1 14:15 Lipase Sent. ko1 14:22 Initial lab(s) drawn, by hi, sent to lab. Inserted saline lock: 20 gauge in right ko1 antecubital area, using aseptic technique. Blood collected. 14:58 Tayla Pagan, SYLVESTER is Primary Nurse. kr3 15:00 CT Abd/Pelvis - IV Contrast Only In Process Unspecified. EDMS 15:18 Triage completed. jl7 15:18 Arm band placed on right wrist. jl7 15:25 Bed in low position. Call light in reach. Side rails up X 1. kr3 15:27 Urine Microscopic Only Sent. kr3 16:14 US Abdomen Limited In Process Unspecified. EDMS 19:28 No provider procedures requiring assistance completed. IV discontinued, intact, kr3 bleeding controlled, No redness/swelling at site. Pressure dressing applied. Administered Medications: 14:21 Drug: NS 0.9% 1000 ml Route: IV; Rate: 1 bolus; Site: left antecubital; ko1 17:10 Follow up: Response: No adverse reaction; IV Status: Completed infusion; IV Intake: kr3 1000ml 14:22 Drug: Zofran (Ondansetron) 4 mg Route: IVP; Site: right antecubital; ko1 17:10 Follow up: Response: No adverse reaction kr3 14:23 Drug: TORadol - (ketorolac) 15 mg Route: IVP; Site: right antecubital; ko1 17:10 Follow up: Response: No adverse reaction kr3 16:37 Drug: morphine 4 mg Route: IVP; Infused Over: 4 mins; Site: right antecubital; jl7 19:31 Follow up: Response: No adverse reaction kr3 19:31 Follow up: Response: No adverse reaction; RASS: Alert and Calm (0) kr3 Medication: 18:15 VIS not applicable for this client. kr3 Intake: 17:10 IV: 1000ml; Total: 1000ml. kr3 Outcome: 17:57 Discharge ordered by . kb 18:15 Discharged to home ambulatory. kr3 18:15 Discharge instructions given to patient, Instructed on discharge instructions, follow up and referral plans. medication usage, Demonstrated understanding of instructions, follow-up care, medications, Prescriptions given X 3. 18:24 Patient left the ED. kr3 19:29 Condition: stable kr3 Signatures: Dispatcher [employer] EDMS Gale Bettencourt, FERNANDO HICKSP-Jennie Elliott RN RN jl7 Marguerite Newton Kelley, RN RN kr3 Jen Amin RN RN ko1 Corrections: (The following items were deleted from the chart) 15:53 15:49 BP 115 / 71; Pulse 51bpm; Resp 15bpm; Pulse Ox 98%; kr3 kr3 19:29 19:27 [facility] ED Fall Risk Assessment (Adult) History of falling in the last 3 months, kr3 including since admission No falls in past 3 months (0 pts) Confusion or Disorientation No (0 pts) Intoxicated or Sedated No (0 pts) Impaired Gait No (0 pts) Mobility Assist Device Used No (0 pt) Altered Elimination No (0 pt) Score/Fall Risk Level 0 - 2 = Low Risk kr3 19:29 19:27 Abuse screen: Denies threats or abuse. kr3 kr3 :29 19:27 Nutritional screening: No deficits noted. kr3 kr3 19:29 19:27 Tuberculosis screening: No symptoms or risk factors identified. kr3 kr3
[2022-11-13 18:49] VITALS: TEMP 98.6
[2022-11-13 18:52] VITALS: O2SAT 100
[2022-11-13 18:53] VITALS: BP 134/80
== END 2022-11-13 18:24 | disposition home or self-care (01) ==
LOC: ER 13:20
DX: R10.84 Generalized abdominal pain (principal); R11.2 Nausea with vomiting, unspecified
CPT/HCPCS: 96361; 85025; 36415; 81025; 83690; 80053; 74177; 76705; 96375; 96374; 99284; Q9967; J7030; J2405; 81003; 81015